=== PATIENT | male | born 1960 | race Caucasian/White ===

== ENCOUNTER 2024-01-16 09:33 | Outpatient (OUT) | payer MEDICARE, MEDICAID, SELFPAY ==
[2024-01-16 10:14] LABS: Basophils Percent Auto 0.2 % (0.2-2.0); Eosinophils Absolute Auto 0.1 10^3/uL (0.0-0.7); Eosinophils Percent Auto 1.7 % (0.9-7.0); Hematocrit 47.4 % (42.0-54.0); Hemoglobin 16.4 g/dL (14.0-18.0); Immature Granulocytes Abs Auto 0.02 10^3/uL (0.00-0.03); Immature Granulocytes Pct Auto 0.2 % (0.0-0.5); Lymphocytes Absolute Auto 2.1 10^3/uL (1.2-3.8); Lymphocytes Percent Auto 25.6 % (20.5-60.0); Mean Corpuscular HGB Conc 34.6 g/dL (29.9-35.2); Mean Corpuscular Hemoglobin 30.1 pg (25.9-34.0); Mean Corpuscular Volume 87.1 fL (80.0-94.0); Mean Platelet Volume 9.5 fL (9.5-13.5); Monocytes Absolute Auto 0.6 10^3/uL (0.3-0.8); Monocytes Percent Auto 6.6 % (1.7-12.0); Neutrophils Absolute Auto 5.5 10^3/uL (1.4-6.5); Neutrophils Percent Auto 65.7 % (43.0-75.0); Platelet Count 204 10^3/uL (150-450); Red Blood Count 5.44 10^6/uL (4.70-6.10); Red Cell Distribution Width 13.6 % (11.0-15.0); White Blood Count 8.4 10^3/uL (4.0-11.0)
[2024-01-16 11:04] LABS: Estimated Average Glucose 220 mg/dL; Glycohemoglobin A1C 9.3 % (4.5-6.2)
[2024-01-16 11:21] LABS: Alanine Aminotransferase 47 U/L (16-63); Albumin Globulin Ratio 1.2; Albumin Level 4.2 g/dL (3.4-5.0); Alkaline Phosphatase 147 U/L (46-116); Anion Gap 17.3; Aspartate Amino Transferase 20 U/L (15-37); BUN Creatinine Ratio 21.3; Bilirubin Total 0.6 mg/dL (0.2-1.0); Carbon Dioxide 23.1 mmol/L (21.0-32.0); Chloride 105 mmol/L (98-107); Chol HDL Ratio 4.5; Cholesterol 167 mg/dL (<=200); Estimated GFR (African America >60 (>=60); Estimated GFR (Non-African Ame >60 (>=60); Free T3 2.64 pg/mL (2.18-3.98); Globulin 3.4 g/dL; Glucose 239 mg/dL (74-106); HDL Cholesterol 37 mg/dL (40-60); Potassium 4.4 mmol/L (3.5-5.1); Sodium 141 mmol/L (136-145); Thyroid Stimulating Hormone 0.673 uIU/mL (0.358-3.740); Total Protein 7.6 g/dL (6.4-8.2); Triglycerides 147 mg/dL (<=150); VLDL CHOLESTEROL 29.4 mg/dL
[2024-01-16 11:48] LABS: Prostate Specific Antigen Dx 0.82 ng/mL (<=4.00)
== END 2024-01-16 09:34 | disposition home or self-care (01) ==
LOC: LAB 09:37
PROVIDERS: PCP Family Medicine; Visit Provider Family Medicine
DX: Z00.00 Encounter for general adult medical examination without abnormal findings (principal); I25.10 Atherosclerotic heart disease of native coronary artery without angina pectoris; I10 Essential (primary) hypertension; R13.10 Dysphagia, unspecified; R10.11 Right upper quadrant pain; Z87.448 Personal history of other diseases of urinary system; Z98.61 Coronary angioplasty status; E11.00 Type 2 diabetes mellitus with hyperosmolarity without nonketotic hyperglycemic-hyperosmolar coma (NKHHC); M75.40 Impingement syndrome of unspecified shoulder; E78.5 Hyperlipidemia, unspecified
CPT/HCPCS: 36415; 80053; 80061; 83036; 84153; 84436; 84443; 84481; 85025

== ENCOUNTER 2024-01-18 10:49 | Outpatient (OUT) | payer MEDICARE, MEDICAID, SELFPAY ==
--- NOTE | 2024-01-18 | VEIN_ITS ---
[facility] [address] Patient Name: MARINO GARCES MRN: [id number] date: 1960 Sex: M Assigned Patient Location: Current Patient Location: Accession/Order Number: [id number] Exam Date: 01/18/2024 00:00 Report Date: 01/23/2024 11:34 At the request of: MYRNA NAVARRO Procedure: VC Ankle Brachial Index EXAM: VC Ankle Brachial Index HISTORY: Peripheral Vascular Disease COMPARISON: None. FINDINGS: Segmental pressures presented as follows (right, left) in mmHg. Brachial: 154, 155 Upper thigh: Not obtained Lower thigh: Not obtained Calf: Not obtained DPA: 125, 100 [employer]: 134, 157 1st Toe: 170, 177 PIO: 0.86, 1.01 TBI: 1.10, 1.14 The ABIs are Normal The TBI's are Acceptable PVR waveforms: Right leg: Thigh: Not obtained Above knee: Not obtained Below knee: Delayed systolic upstroke with blunting, mild peripheral arterial disease Right ankle: Delayed systolic upstroke with blunting, mild peripheral arterial disease Left leg: Thigh: Not obtained Above knee: Not obtained Below knee: Delayed systolic upstroke with blunting, mild peripheral arterial disease Right ankle: Delayed systolic upstroke with blunting, mild peripheral arterial disease VEIN/VC Ankle Brachial Index IMPRESSION: Arterial brachial index suggests bilateral mild arterial disease PVR waveforms suggests bilateral below-knee mild peripheral arterial disease Electronically authenticated by: KASSIE MANNING Date: 01/23/2024 11:34
== END 2024-01-18 10:50 | disposition home or self-care (01) ==
LOC: VC 10:49
PROVIDERS: PCP Family Medicine; Visit Provider Family Medicine
DX: E11.65 Type 2 diabetes mellitus with hyperglycemia (principal)
CPT/HCPCS: 93922

== ENCOUNTER 2024-01-26 06:49 | Outpatient (OUT) | payer MEDICARE, MEDICAID, SELFPAY ==
--- NOTE | 2024-01-26 06:51 | US_ITS ---
[address] [address] Patient Name: MARINO GARCES MRN: [id number] date: 1960 Sex: M Assigned Patient Location: [place] Current Patient Location: US Accession/Order Number: [id number] Exam Date: 01/26/2024 07:04 Report Date: 01/26/2024 10:00 At the request of: MYRNA NAVARRO Procedure: US arterial duplex LE BI EXAMINATION: US arterial duplex LE BI HISTORY: arterial disease I77.9 COMPARISON: No relevant comparison available. TECHNIQUE: Color duplex Doppler ultrasound evaluation analysis was performed in the usual manner. FINDINGS: RIGHT LOWER EXTREMITY ARTERIAL Mild to moderate atherosclerotic plaque. Triphasic waveforms proximally. Biphasic waveforms distally External Iliac PSV: 90.9 cm/s External Iliac EDV: 0.0 cm/s Common Femoral PSV: 116.7 cm/s Common Femoral EDV: 0.0 cm/s Superficial Femoral Proximal PSV: 79.3 cm/s Proximal EDV: 0.0 cm/s Mid PSV: 76.7 cm/s Mid EDV: 0.0 cm/s Distal PSV: 201.3 cm/s Distal EDV: 0.0 cm/s Popliteal Proximal PSV: 95.1 cm/s Popliteal Proximal EDV: 0.0 cm/s Posterior Tibial Proximal PSV: 35.8 cm/s Proximal EDV: 0.0 cm/s Mid PSV: 31.9 cm/s Mid EDV: 0.7 cm/s Distal PSV: 28.1 cm/s Distal EDV: 0.0 cm/s Anterior Tibial Proximal PSV: 49.9 cm/s Proximal EDV: 0.0 cm/s Mid PSV: 56.9 cm/s Mid EDV: 0.0 cm/s Distal PSV: 36.3 cm/s Distal EDV: 0.0 cm/s LEFT LOWER EXTREMITY ARTERIAL Mild to moderate atherosclerotic plaque. Triphasic waveforms proximally. Biphasic waveforms distally External Iliac PSV: 94.1 cm/s External Iliac EDV: 0.0 cm/s Common Femoral PSV: 89.6 cm/s Common Femoral EDV: 0.0 cm/s Superficial Femoral Proximal PSV: 97.3 cm/s Proximal EDV: 7.7 cm/s Mid PSV: 107.0 cm/s Mid EDV: 0.0 cm/s Distal PSV: 84.4 cm/s Distal EDV: 7.7 cm/s Popliteal Proximal PSV: 59 cm/s Popliteal Proximal EDV: 0 cm/s Posterior Tibial Proximal PSV: 37.2 cm/s Proximal EDV: 0.0 cm/s Mid PSV: 36.1 cm/s Mid EDV: 0.0 cm/s Distal PSV: 32.5 cm/s Distal EDV: Anterior Tibial Proximal PSV: 136.9 cm/s Proximal EDV: 9.5 cm/s Mid PSV: 66.9 cm/s Mid EDV: 2.3 cm/s Distal PSV: 40.5 cm/s Distal EDV: 0.0 cm/s US/US arterial duplex LE BI IMPRESSION: Findings suggest mild ischemia mid to distal bilateral legs Electronically authenticated by: KASSIE MANNING Date: 01/26/2024 10:00
--- OUTSIDE RECORDS SUMMARY | 2024-01-26 06:51 | XMS_ITS ---
Patient Summarization (C-CDA 2.1 CCD) Created on: January 26, 2024 MARINO GARCES : 1960 Sex: Male Author Organization Sample organization Care Team Providers Care Cdl Bulk Driver Name Role Phone RAMON, DR NORRIS Consulting Unavailable RAMON, DR NORRIS Primary Care Unavailable RAMON, DR NORRIS Admitting Unavailable RAMON, DR NORRIS Attending Unavailable WEST, DR KASSIE Salas Consulting Unavailable RAMON, DR NORRIS Admitting Unavailable RAMON, DR NORRIS Attending Unavailable RAMON, DR NORRIS Consulting Unavailable RAMON, DR NORRIS Consulting Unavailable RAMON, DR NORRIS Primary Care Unavailable JOCELYNY, DR NORRIS Admitting Unavailable RAMON, DR NORRIS Attending Unavailable FROILAN, DR LESLIE Miramontes Consulting Unavailable Allergies Allergy Classification Reported Allergen(s) Allergy Type Date of Onset Reaction(s) Facility (1 source) Penicillin Drug Allergy [facility] Repository Encounters Encounter Date Encounter Type Care Provider Facility Start: 01-18-2022 End: 01-18-[address] MYRNA NAVARRO Facility:[facility] Start: 12-31-2021 End: 01-01-[address] MYRNA NAVARRO Facility:[facility] Start: 10-08-2021 End: 10-09-[address] MYRNA NAVARRO Facility:[facility] Payers Date Payer Category Payer Unknown [id number] [id number] [id number] 1960 Unknown [id number] 1960 Unknown [id number] 1957 Medicaid [id number] 1957 Medicare [id number] Problems Active Problems Problem Classification Problem Date Documented Date Episodic/Chronic Coronary atherosclerosis and other heart disease (1 source) Atherosclerotic heart disease of platinum coronary artery without angina pectoris; Translations: [ASHD [place] CA W/O ANGINA PECTORIS] Onset: 10-11-2021 Chronic Diabetes mellitus with complications (1 source) Type 2 diabetes mellitus with hyperosmolarity without nonketotic hyperglycemic-hyperos molar coma (NKHHC); Translations: [TYPE 2 DM HYPEROSMOLARITY W/O NKHHC] Onset: 10-11-2021 Chronic Disorders of lipid metabolism (5 sources) Hyperlipidemia, unspecified; Translations: [Pure hypercholesterolemia, unspecified] Onset: 10-08-2021 Chronic Essential hypertension (1 source) Essential (primary) hypertension; Translations: [ESSENTIAL PRIMARY HYPERTENSION] Onset: 10-11-2021 Chronic Other connective tissue disease (4 sources) Impingement syndrome of right shoulder; Translations: [IMPINGEMENT SYNDROME RIGHT SHOULDER] Onset: 01-18-2022 Episodic Sprains and strains (1 source) Superior glenoid labrum lesion of right shoulder, initial encounter; Translations: [SUP GLND LABRUM LES RT SHLDR INIT] Onset: 01-20-2022 Episodic Past or Other Problems Problem Classification Problem Date Documented Da te Episodic/Chronic Coronary atherosclerosis and other heart disease (1 source) Coronary angioplasty status; Translations: [CORONARY ANGIOPLASTY STATUS] Onset: 10-11-2021 Episodic Diabetes mellitus without complication (1 source) Other abnormal glucose; Translations: [OTHER ABNORMAL GLUCOSE] Onset: 10-11-2021 Episodic Other screening for suspected conditions (not mental disorders or infectious disease) (1 source) Encounter for screening for malignant neoplasm of prostate; Translations: [ENC SCREEN MALIG NEOPLASM PROSTATE] Onset: 10-11-2021 Episodic Procedures Date Procedure Procedure Detail Performing Clinician Start: 10-08-[address] WILLIAM NAVARRO Comment on above: Performed By: #### P [facility] #### [facility] [address] [place] [address] Dr. Jamia Chin Results Test Name Value Interpretation Reference Range Facility MRI SHOULDER RT WO CONon MRI SHOULDER RT WO CON EXAMINATION: MRI SHOULDER RT WO CON HISTORY: Impingement syndrome of right shoulder region COMPARISON: No relevant comparison available. TECHNIQUE: A variety of imaging planes and parameters were utilized for visualization of suspected pathology. Imaging was performed without contrast. FINDINGS: Gadolinium contrast identified within the joint space from prior arthrogram, see separate report. Extension of contrast out of the joint space into the anterior shoulder extending into the subacromial subdeltoid bursa ROTATOR CUFF REGION CUFF TENDONS: Normal. No visible tendinitis or tear. CUFF MUSCLES: Normal appearing muscles. DELTOID: Normal. No significant atrophy or tear. LONG BICEPS TENDON: Normal. No abnormal signal, attrition, or tear. LABRUM/BICEPS ANCHOR SUPERIOR: Increased signal and fraying of the superior labrum, with detachment of the labrum and biceps tendon from the glenoid rim. Findings are most consistent with a Type II SLAP lesion. ANTERIOR/INFERIOR: Complex signal likely representing a tear POSTERIOR: Normal. No posterior labrum abnormality. CAPSULE Normal. No visible capsular laxity or thickening. AC JOINT REGION AC JOINT: Moderate osteoarthropathy with mild-moderate narrowing of the underlying coracoacromial arch. AC LIGAMENTS: Normal acromioclavicular ligament. CC LIGAMENTS: Normal coracoclavicular ligaments. ACROMION: Normal horizontal (Type I) configuration. SUBACROMIAL BURSA: Normal. No significant effusion. HYALINE CARTILAGE: Normal. No visible cartilage narrowing or focal defect. OTHER BONES: Normal proximal humerus, glenoid, and coracoid. OTHER OBSERVATIONS: Negative. No other significant findings or glenohumeral effusion. IMPRESSION: Complex large superior and anterior labral tear with extravasation of contrast outside of the glenohumeral joint space into the anterior shoulder and subacromial subdeltoid bursa Electronically authenticated by: KASSIE MANNING Date: 2022-01-18 18:25 Normal [facility] XR ARTHRO SHLD RTon 01-19-20 22 XR ARTHRO SHLD RT EXAMINATION: XR ARTH RO SHLD RT HISTORY: Impingement syndrome of right shoulder region COMPARISON: No relevant comparison available. TECHNIQUE: An arthrogram was performed under fluoroscopic guidance using non-ionic contrast material in the usual sterile manner after obtaining informed consent. Standard level fluoroscopic mode of operation utilized. FINDINGS: JOINT: Right shoulder NEEDLE: 25 gauge, 3.5 spinal needle. MEDICATION: 10 mL injected into joint space consisting of a mixture of 10 cc normal saline, 5 cc Omnipaque-300, 5 cc 1% Xylocaine, and 0.2 cc Dotarem. TECHNIQUE: Anterior approach under fluoroscopic guidance. CLINICAL: 4 out of 10 pain before the injection, 4 out of 10 pain following the injection COMPLICATIONS: None. BONES: No fracture, significant osseous degenerative changes, or visible bone lesion. BURSA: No visible extension of contrast into the subacromial-subdeltoid bursa at this time. OTHER: Negative. IMPRESSION: 1. Technically successful arthrogram without complication. 2. Please see separate MRI report. Electronically authenticated by: KASSIE MANNING Date: 2022-01-18 15:04 Normal [facility] XR FOREIGN BODY EYEon 2021 XR FOREIGN BODY EYE EXAMINATION: XR FOREIGN BODY EYE HISTORY: Foreign body in eye COMPARISON: No relevant comparison available. FINDINGS: ORBITS: Negative for a metallic foreign body. OTHER: Metallic foreign body identified in the right mandible. Metallic foreign bodies project over the posterior upper teeth. IMPRESSION: No metallic foreign body in the orbits Multiple metallic implants as detailed above. Composition should be determined before MRI Electronically authenticated by: KASSIE MANNING Date: 2022-01-18 13:55 Normal [facility] XR CSPINE MIN 4 VIEWSon 12-13 XR CSPINE MIN 4 VIEWS EXAMINATION: XR CSPINE MIN 4 VIEWS HISTORY: Impingement syndrome of shoulder region ; right neck and shoulder pain for 2-3 months; no known injury COMPARISON: No relevant comparison available. FINDINGS: BONES: Mild/moderate degenerative facet arthropathy C4-C5, C5-C6. No fracture or spondylolisthesis. DISC SPACES: Moderate narrowing C4-C5. Mild narrowing C5-C6. PARASPINOUS: Negative. No paraspinous abnormality is seen. OTHER: Negative. IMPRESSION: 1. Mild to moderate degenerative changes of the mid cervical spine. Consider MRI for further evaluation if symptoms persist. Electronically authenticated by: LESLIE MCGOVERN Date: 2021-12-31 16:24 Normal [facility] CBC AUTO DIFFon 10-08-2021 BASO # 0.0 103/ul Normal 0.0-0.1 [facility] Comment on above: Performed By: #### C BC #### [facility] [address] [address] [address] Jamia Chin Basophils/100 WBC (Bld) 0.4 % Normal 0.2-2.0 [facility] Comment on above: Performed By: #### C BC #### [facility] [address] [address] [address] Jamia Chin EO # 0.2 103/ul Normal 0.0-0.7 [facility] Comment on above: Performed By: #### C BC #### [facility] [address] [place] [address] Dr. Jamia Chin Eosinophils/100 WBC (Bld) 2.1 % Normal 0.9-7.0 [facility] Comment on above: Performed By: #### C BC #### [facility] [address] [place] [address] Dr. Jamia Chin Erythrocyte distribution width (RBC) [Ratio] 13.2 % Normal 11.0-15.0 [facility] Comment on above: Performed By: #### C BC #### [facility] [address] [place] [address] Dr. Jamia Chin Hematocrit (Bld) [Volume fraction] 48.3 % Normal 42.0-54.0 [facility] Comment on above: Performed By: #### C BC #### [facility] [address] [place] [address] Dr. Jamia Chin Hemoglobin (Bld) [Mass/Vol] 16.9 g/dL Normal 14.0-18.0 [facility] Comment on above: Performed By: #### C BC #### [facility] [address] [place] [address] Dr. Jamia Chin IG # 0.03 10e3/ul Normal 0.00-0.03 [facility] Comment on above: Performed By: #### C BC #### [facility] [address] [place] [address] Dr. Jamia Chin IG % 0.3 % Normal 0.0-0.5 [facility] Comment on above: Performed By: #### C BC #### [facility] [address] [place] [address] Dr. Jamia Chin LYMPH # 2.0 103/ul Normal 1.2-3.8 [facility] Comment on above: Performed By: #### C BC #### [facility] [address] [place] [address] Dr. Jamia Chin Lymphocytes/100 WBC (Bld) 22.5 % Normal 20.5-60.0 [facility] Comment on above: Performed By: #### C BC #### [facility] [address] [place] [address] Dr. Jamia Chin MANUAL DIFF REQ NO Normal [facility] Comment on above: Performed By: #### C BC #### [facility] [address] [place] [address] Dr. Jamia Chin MCH (RBC) [Entitic mass] 30.7 pg Normal 25.9-34.0 [facility] Comment on above: Performed By: #### C BC #### [facility] [address] [place] [address] Dr. Jamia Chin MCHC (RBC) [Mass/Vol] 35.0 g/dL Normal 29.9-35.2 [facility] Comment on above: Performed By: #### C BC #### [facility] [address] [place] [address] Dr. Jamia Chin MCV (RBC) [Entitic vol] 87.7 fL Normal 80.0-94.0 [facility] Comment on above: Performed By: #### C BC #### [facility] [address] [place] [address] Dr. Jamia Chin MONO # 0.6 103/ul Normal 0.3-0.8 [facility] Comment on above: Performed By: #### C BC #### [facility] [address] [place] [address] Dr. Jamia Chin Monocytes/100 WBC (Bld) 6.7 % Normal 1.7-12.0 [facility] Comment on above: Performed By: #### C BC #### [facility] [address] [place] [address] Dr. Jamia Chin NEUT # 6.2 103/ul Normal 1.4-6.5 [facility] Comment on above: Performed By: #### C BC #### [facility] [address] [place] [address] Dr. Jamia Chin Neutrophils/100 WBC (Bld) 68.0 % Normal 43.0-75.0 [facility] Comment on above: Performed By: #### C BC #### [facility] [address] [address] [address] Jamia Chin Platelet mean volume (Bld) [Entitic vol] 9.0 fL Critically low 9.5-13.5 [facility] Comment on above: Performed By: #### C BC #### [facility] [address] [address] [address] Jamia Chin PLT 209 103/ul Normal 150-450 [facility] Comment on above: Performed By: #### C BC #### [facility] [address] [address] [address] Jamia Chin RBC 5.51 106/ul Normal 4.70-6.10 [facility] Comment on above: Performed By: #### C BC #### [facility] [address] [address] [address] Jamia Chin WBC 9.1 103/ul Normal 4.0-11.0 [facility] Comment on above: Performed By: #### C BC #### [facility] [address] [address] [address] Jamia Chin GLYCOHEMOGLOBIN A1Con 2021 ADA RECOMMENDATION ADA THERAPEUTIC TARG ET 6.0 - 7.0 ACTION SUGGESTED > 7.0 Normal [facility] Comment on above: Performed By: #### A 1C #### [facility] [address] [place] [address] Dr. Jamia Chin Glucose [Mass/Vol] 226 mg/dL Normal [facility] Comment on above: Performed By: #### A 1C #### [facility] [address] [address] [address] Jamia Chin HbA1c (Bld) [Mass fraction] 9.5 % Critically high <=6.0 [facility] Comment on above: Performed By: #### A 1C #### [facility] [address] [place] [address] Dr. Jamia Chin LIPID PROFILEon 10-08-2021 CHOL-HDL RATIO NORM SEE BELOW Normal [facility] Comment on above: Result Comment: 3.3 - 4.4 LOW RISK 4.4 - 7.1 AVERAGE RISK 7.1 - 11.0 MODERATE RISK >11.0 HIGH RISK Performed By: #### L IPID, CMP #### [facility] [address] [place] [address] Dr. Jamia Chin Cholesterol [Mass/Vol] 167 mg/dL Normal <=200 [facility] Comment on above: Performed By: #### L IPID, CMP #### [facility] [address] [address] [address] Jamia Chin Cholesterol in HDL [Mass/Vol] 31 mg/dL Normal [facility] Comment on above: Performed By: #### L IPID, CMP #### [facility] [address] [place] [address] Dr. Jamia Chin Cholesterol in LDL [Mass/Vol] 93.6 mg/dL Normal [facility] Comment on above: Performed By: #### L IPID, CMP #### [facility] [address] [place] [address] Dr. Jamia Chin Cholesterol.total/Ch olesterol in HDL [Mass ratio] 5.4 {ratio} Normal [facility] Comment on above: Performed By: #### L IPID, CMP #### [facility] [address] [place] [address] Dr. Jamia Chin HDL NORMAL > or = 60 mg/dl - LO W CARDIOVASCULAR RISK <40 mg/dl - HIGH CARDIOVASCULAR RISK Normal [facility] Comment on above: Performed By: #### L IPID, CMP #### [facility] [address] [place] [address] Dr. Jamia Chin LDL CALC NORMAL SEE BELOW Normal [facility] Comment on above: Result Comment: <100 mg/dl OPTIMAL 100 - 129 mg/dl NEAR OR ABOVE OPTIMAL 130 - 159 mg/dl BORDERLINE HIGH 160 - 189 mg/dl HIGH >190 mg/dl VERY HIGH Performed By: #### L IPID, CMP #### [facility] [address] [place] [address] Dr. Jamia Chin Triglyceride [Mass/Vol] 212 mg/dL Critically high <=150 [facility] Comment on above: Performed By: #### L IPID, CMP #### [facility] [address] [address] [address] Jamia Chin VLDL CALC 42.4 mg/dL Normal [facility] Comment on above: Performed By: #### L IPID, CMP #### [facility] [address] [address] [address] Jamia Chin PROF 14(COMP METB)on 022 Albumin [Mass/Vol] 4.3 g/dL Normal 3.5-5.0 [facility] Comment on above: Performed By: #### L IPID, CMP #### [facility] [address] [place] [address] Dr. Jamia Chin Albumin/Globulin [Mass ratio] 1.3 {ratio} Normal [facility] Comment on above: Performed By: #### L IPID, CMP #### [facility] [address] [place] [address] Dr. Jamia Chin ALP [Catalytic activity/Vol] 155 U/L Critically high 38-126 [facility] Comment on above: Performed By: #### L IPID, CMP #### [facility] [address] [place] [address] Dr. Jamia Chin ALT [Catalytic activity/Vol] 76 U/L Critically high 21-72 [facility] Comment on above: Performed By: #### L IPID, CMP #### [facility] [address] [address] [address] Jamia Chin Anion gap [Moles/Vol] 12.2 mmol/L Normal [facility] Comment on above: Performed By: #### L IPID, CMP #### [facility] [address] [place] [address] Dr. Jamia Chin AST [Catalytic activity/Vol] 16 U/L Critically low 17-59 [facility] Comment on above: Performed By: #### L IPID, CMP #### [facility] [address] [place] [address] Dr. Jamia Chin Bilirubin [Mass/Vol] 0.6 mg/dL Normal 0.2-1.3 [facility] Comment on above: Performed By: #### L IPID, CMP #### [facility] [address] [address] [address] Jamia Chin Calcium [Mass/Vol] 9.2 mg/dL Normal 8.4-10.2 [facility] Comment on above: Performed By: #### L IPID, CMP #### [facility] [address] [address] [address] Jamia Chin Chloride [Moles/Vol] 103 mmol/L Normal 98-107 [facility] Comment on above: Performed By: #### L IPID, CMP #### [facility] [address] [place] [address] Dr. Jamia Chin CO2 [Moles/Vol] 27.1 mmol/L Normal 22.0-30.0 [facility] Comment on above: Performed By: #### L IPID, CMP #### [facility] [address] [place] [address] Dr. Jamia Chin Creatinine [Mass/Vol] 0.91 mg/dL Normal 0.66-1.25 [facility] Comment on above: Performed By: #### L IPID, CMP #### [facility] [address] [place] [address] Dr. Jamia Chin EGFR-AF CAMEROONIAN >60 Normal >=60 [facility] Comment on above: Performed By: #### L IPID, CMP #### [facility] [address] [place] [address] Dr. Jamia Chin EGFR-NON AF CAMEROONIAN >60 Normal >=60 [facility] Comment on above: Performed By: #### L IPID, CMP #### [facility] [address] [place] [address] Dr. Jamia Chin Globulin (S) [Mass/Vol] 3.3 g/dL Normal [facility] Comment on above: Performed By: #### L IPID, CMP #### [facility] [address] [place] [address] Dr. Jamia Chin Glucose [Mass/Vol] 343 mg/dL Critically high 74-106 [facility] Comment on above: Performed By: #### L IPID, CMP #### [facility] [address] [address] [address] Jamia Chin Potassium [Moles/Vol] 4.3 mmol/L Normal 3.4-5.0 [facility] Comment on above: Performed By: #### L IPID, CMP #### [facility] [address] [place] [address] Dr. Jamia Chin Protein [Mass/Vol] 7.6 g/dL Normal 6.1-8.2 [facility] Comment on above: Performed By: #### L IPID, CMP #### [facility] [address] [place] [address] Dr. Jamia Chin Sodium [Moles/Vol] 138 mmol/L Normal 137-145 [facility] Comment on above: Performed By: #### L IPID, CMP #### [facility] [address] [place] [address] Dr. Jamia Chin Urea nitrogen [Mass/Vol] 19.0 mg/dL Normal 9.0-20.0 [facility] Comment on above: Performed By: #### L IPID, CMP #### [facility] [address] [place] [address] Dr. Jamia Chin Urea nitrogen/Creatinine [Mass ratio] 20.9 mg/mg Normal [facility] Comment on above: Performed By: #### L IPID, CMP #### [facility] [address] [place] [address] Dr. Jamia Chin Clinical Note 12-31-2021 Note Date & Type Note Facility 12-31-2021 Note PROCEDURE: XR SHOULD ER RT 2V or > HISTORY: Impingement syndrome of shoulder region , right shoulder pain and neck pain for 2 and 3 months, no known injury COMPARISON: None. FINDINGS: BONES:Narrowing of the acromioclavicular joint with bone hypertrophy of the distal end of clavicle with small undersurface osteophyte and prominent cephalad projecting osteophyte. Unremarkable humeral head and glenohumeral joint. SOFT TISSUES:No visible soft tissue swelling. EFFUSION:None visible. OTHER: Negative. IMPRESSION: 1. No acute bone abnormality. 2. Moderate degenerative changes acromioclavicular joint which may predispose to rotator cuff injury. Electronically authenticated by: LESLIE MCGOVERN Date: 2021-12-31 16:19 [facility] Summary Purpose Family History No Family History Records Found Advance Directives No Advanced Directives Records Found Additional Source Comments (unrecognized sect ion and content) No Status Records Found INFORMATION SOURCE (unrecogn ized section and content) DATE CREATED AUTHOR 01/20/2022 [facility] FOR RECORDS PERTAINING TO PATIENTS WHO ARE OR HAVE BEEN ENROLLED IN A CHEMICAL DEPENDENCY/SUBSTANCEABUSE PROGRAM, SOME INFORMATION MAY BE OMITTED. This clinical summary was aggregated from multiple sources. Caution should be exercised in using it in the provision of clinical care. This summary normalizes information from multiple sources, and as a consequence, information in this document may materially change the coding, format and clinical context of patient data. In addition, data may be omitted in some cases. CLINICAL DECISIONS SHOULD BE BASED ON THE PRIMARY CLINICAL RECORDS. [facility] [employer] provides no warranty or guarantee of the accuracy or completeness of information in this document.
== END 2024-01-26 06:50 | disposition home or self-care (01) ==
LOC: US 06:49
PROVIDERS: PCP Family Medicine; Visit Provider Family Medicine
DX: I77.9 Disorder of arteries and arterioles, unspecified (principal); E11.65 Type 2 diabetes mellitus with hyperglycemia
CPT/HCPCS: 93925

== ENCOUNTER 2024-11-24 15:48 | Emergency (ER) | payer MEDICARE, MEDICAID, SELFPAY ==
[2024-11-24 15:52] VITALS: BP 153/80; PULSE 73; TEMP 36.7; O2SAT 97; BMI 23.9
--- OUTSIDE RECORDS SUMMARY | 2024-11-24 15:57 | XMS_ITS | CCD ---
Author Organization [facility] Care Team Providers Care Box Maker Name Role Phone DR MYRNA MULTANI Consulting Unavailable RAMON, DR NORRIS Primary Care Unavailable RAMON, DR NORRIS Admitting Unavailable RAMON, DR NORRIS Attending Unavailable WEST, DR KASSIE Salas Consulting Unavailable RAMON, DR NORRIS Admitting Unavailable RAOMN, DR NORRIS Attending Unavailable RAMON, DR NORRIS Consulting Unavailable RAMON, DR NORRIS Consulting Unavailable RAMON, DR NORRIS Primary Care Unavailable RAMON, DR NORRIS Admitting Unavailable RAMON, DR NORRIS Attending Unavailable FROILAN, DR LESLIE Miramontes Consulting Unavailable LYNN FINNEGAN Attending Unavailable MYRNA MULTANI Referring Unavailable Unavailable Primary Care Provider Unavailabl e Allergies Allergy Classification Reported Allergen(s) Allergy Type Date of Onset Reaction(s) Facility Penicillins (antibiotic) (1 source) Penicillins; Translations: [PENICILLINS] Drug Allergy 02-01-20 24 [facility] Repository Sulfamethoxazole / Trimethoprim (1 source) Sulfamethoxazole / Trimethoprim; Translations: [SULFAMETHOXAZOLE-T RIMETHOPRIM] Drug Allergy 10-10-19 11 [facility] Repository (1 source) Penicillin Drug Allergy [facility] Repository (3 sources) Penicillins Propensity to adverse reactions to drug 02-01-20 24 [facility] (3 sources) Sulfamethoxazole / Trimethoprim Drug Allergy 10-10-19 11 Other (See Comments) [facility] Medications Current Medications Medication Drug Class(es) Dates Sig (Normalized) Sig (Original) aspirin 325 mg oral tablet (3 sources) Platelet Aggregation Inhibitor, Nonsteroidal Anti-inflammatory Drug take 1 tablet by mouth every six hours as needed aspirin 325 mg tablet Take 1 tablet (325 mg total) by mouth every 6 (six) hours as needed. Active ibuprofen 200 mg oral tablet (3 sources) Nonsteroidal Anti-inflammatory Drug take 1 tablet by mouth every six hours as needed ibuprofen (AdviL) 200 mg tablet Take 1 tablet (200 mg total) by mouth every 6 (six) hours as needed. Active metoprolol tartrate 25 mg oral tablet (3 sources) beta-Adrenergic Reyes take 1 tablet by mouth in the morning, then take 1 tablet by mouth at bedtime metoprolol tartrate (LOPRESSOR) 25 mg tablet Take 1 tablet (25 mg total) by mouth in the morning and 1 tablet (25 mg total) before bedtime. Active pioglitazone 15 mg oral tablet (3 sources) Peroxisome Proliferator Receptor alpha Agonist, Peroxisome Proliferator Receptor gamma Agonist, Thiazolidinedione Start: 01-15-2024 take 1 tablet by mouth in the morning pioglitazone (ACTOS) 15 mg tablet Take 1 tablet (15 mg total) by mouth in the morning. 01/15/2024 Active rosuvastatin calcium 5 mg oral tablet (3 sources) HMG-CoA Reductase Inhibitor Start: 01-12-2024 take 1 tablet by mouth in the morning rosuvastatin (CRESTOR) 5 mg tablet Take 1 tablet (5 mg total) by mouth in the morning. 01/12/2024 Active varenicline 0.5 mg oral tablet (3 sources) Partial Cholinergic Nicotinic Agonist take 1 tablet by mouth once in the morning varenicline (CHANTIX STARTING MONTH BOX) 0.5 mg (11)- 1 mg (42) tablet Take 0.5 mg by mouth in the morning and 0.5 mg before bedtime. Active Problems Active Problems Problem Classification Problem Date Documented Date Episodic/Chronic Anxiety disorders (3 sources) Anxiety; Translations: [Anxiety disorder, unspecified] Onset: 10-10-2010 02-01-2024 Chronic Coronary atherosclerosis and other heart disease (10 sources) Atherosclerotic heart disease of [place] coronary artery without angina pectoris; Translations: [Coronary arteriosclerosis] Onset: 10-11-2021 02-01-2024 Chronic Diabetes mellitus with complications (1 source) Type 2 diabetes mellitus with hyperosmolarity without nonketotic hyperglycemic-hyperos molar coma (NKHHC); Translations: [TYPE 2 DM HYPEROSMOLARITY W/O NKHHC] Onset: 10-11-2021 Chronic Disorders of lipid metabolism (5 sources) Hyperlipidemia, unspecified; Translations: [Pure hypercholesterolemia, unspecified] Onset: 10-08-2021 Chronic Essential hypertension (1 source) Essential (primary) hypertension; Translations: [ESSENTIAL PRIMARY HYPERTENSION] Onset: 10-11-2021 Chronic Other circulatory disease (1 source) Other disorder of circulatory system; Translations: [Other disorder of circulatory system] Onset: 02-01-2024 Episodic Other connective tissue disease (4 sources) Impingement syndrome of right shoulder; Translations: [IMPINGEMENT SYNDROME RIGHT SHOULDER] Onset: 01-18-2022 Episodic Other connective tissue disease (1 source) Pain in lower limb Onset: 02-01-2024 Episodic Peripheral and visceral atherosclerosis (5 sources) Peripheral vascular disease, unspecified; Translations: [Intermittent claudication] Onset: 02-01-2024 02-01-2024 Chronic Residual codes; unclassified (1 source) Pain, unspecified; Translations: [Pain, unspecified] Onset: 01-31-2024 Episodic Sprains and strains (1 source) Superior glenoid labrum lesion of right shoulder, initial encounter; Translations: [SUP GLND LABRUM LES RT SHLDR INIT] Onset: 01-20-2022 Episodic Substance-related disorders (8 sources) Nicotine dependence, cigarettes, uncomplicated; Translations: [Tobacco dependence syndrome] Onset: 02-01-2024 02-01-2024 Chronic Unclassified (1 source) Cold Feet Onset: 02-01-2024 Past or Other Problems Problem Classification Problem Date Documented Da te Episodic/Chronic Allergic reactions (6 sources) Inflammatory dermatosis; Translations: [Dermatitis, unspecified] Onset: 11-01-2010 02-01-2024 Episodic Coronary atherosclerosis and other heart disease (1 source) Coronary angioplasty status; Translations: [CORONARY ANGIOPLASTY STATUS] Onset: 10-11-2021 Episodic Diabetes mellitus without complication (1 source) Other abnormal glucose; Translations: [OTHER ABNORMAL GLUCOSE] Onset: 10-11-2021 Episodic Nonspecific chest pain (3 sources) Chest pain; Translations: [Chest pain, unspecified] Onset: 02-01-2024 02-01-2024 Episodic Other circulatory disease (2 sources) Ischemia of bilateral lower limbs; Translations: [Other disorder of circulatory system] 02-01-2024 Episodic Other screening for suspected conditions (not mental disorders or infectious disease) (1 source) Encounter for screening for malignant neoplasm of prostate; Translations: [ENC SCREEN MALIG NEOPLASM PROSTATE] Onset: 10-11-2021 Episodic Results Test Name Value Interpretation Reference Range [...] by: KASSIE MANNING Date: 2022-01-18 18:25 Normal [facility] XR ARTHRO SHLD RTon 01-19-20 22 XR ARTHRO LD RT EXAMINATION: XR ARTH RO SHLD RT [...] by: KASSIE MANNING Date: 2022-01-18 15:04 Normal [facility] XR FOREIGN BODY EYEon 2021 XR FOREIGN [...] by: KASSIE MANNING Date: 2022-01-18 13:55 Normal [facility] XR CSPINE MIN 4 VIEWSon 12-13 XR [...] by: LESLIE MCGOVERN Date: 2021-12-31 16:24 Normal [facility] CBC AUTO DIFFon 10-08-2021 BASO # 0.0 103/ul Normal 0.0-0.1 [facility] Comment on above: Performed By: #### C #### [facility] [address] [place] [address] Dr. Jamia Chin Basophils/100 WBC (Bld) 0.4 % Normal 0.2-2.0 [facility] Comment on above: Performed By: #### C BC #### [facility] [address] [place] [address] Dr. Jamia Chin EO # 0.2 103/ul Normal 0.0-0.7 [facility] Comment on above: Performed By: #### C BC #### [facility] [address] [place] [address] Dr. Jamia Chin Eosinophils/100 WBC (Bld) 2.1 % Normal 0.9-7.0 [facility] Comment on above: Performed By: #### C BC #### [facility] [address] [place] [address] Dr. Jamia Chin Erythrocyte distribution width (RBC) [Ratio] 13.2 % Normal 11.0-15.0 [facility] Comment on above: Performed By: #### C BC #### [facility] [address] [place] [address] Dr. Jamia Chin Hematocrit (Bld) [Volume fraction] 48.3 % Normal 42.0-54.0 [facility] Comment on above: Performed By: #### C BC #### [facility] [address] [place] [address] Dr. Jamia Chin Hemoglobin (Bld) [Mass/Vol] 16.9 g/dL Normal 14.0-18.0 [facility] Comment on above: Performed By: #### C BC #### [facility] [address] [place] [address] Dr. Jamia Chin IG # 0.03 10e3/ul Normal 0.00-0.03 [facility] Comment on above: Performed By: #### C BC #### [facility] [address] [place] [address] Dr. Jamia Chin IG % 0.3 % Normal 0.0-0.5 [facility] Comment on above: Performed By: #### C BC #### [facility] [address] [address] [address] Jamia Chin LYMPH # 2.0 103/ul Normal 1.2-3.8 [facility] Comment on above: Performed By: #### C BC #### [facility] [address] [place] [address] Dr. Jamia Chin Lymphocytes/100 WBC (Bld) 22.5 % Normal 20.5-60.0 [facility] Comment on above: Performed By: #### C BC #### [facility] [address] [place] [address] Dr. Jamia Chin MANUAL DIFF REQ NO Normal [facility] Comment on above: Performed By: #### C BC #### [facility] [address] [place] [address] Dr. Jamia Chin MCH (RBC) [Entitic mass] 30.7 pg Normal 25.9-34.0 [facility] Comment on above: Performed By: #### C BC #### [facility] [address] [place] [address] Dr. Jamia Chin MCHC (RBC) [Mass/Vol] 35.0 g/dL Normal 29.9-35.2 [facility] Comment on above: Performed By: #### C BC #### [facility] [address] [place] [address] Dr. Jamia Chin MCV (RBC) [Entitic vol] 87.7 fL Normal 80.0-94.0 [facility] Comment on above: Performed By: #### C BC #### [facility] [address] [place] [address] Dr. Jamia Chin MONO # 0.6 103/ul Normal 0.3-0.8 [facility] Comment on above: Performed By: #### C BC #### [facility] [address] [place] [address] Dr. Jamia Chin Monocytes/100 WBC (Bld) 6.7 % Normal 1.7-12.0 [facility] Comment on above: Performed By: #### C BC #### [facility] [address] [place], [place] [id number] Dr. Jamia Chin NEUT # 6.2 103/ul Normal 1.4-6.5 [facility] Comment on above: Performed By: #### C BC #### [facility] [address] [place] [address] Dr. Jamia Chin Neutrophils/100 WBC (Bld) 68.0 % Normal 43.0-75.0 [facility] Comment on above: Performed By: #### C BC #### [facility] [address] [place] [address] Dr. Jamia Chin Platelet mean volume (Bld) [Entitic vol] 9.0 fL Critically low 9.5-13.5 [facility] Comment on above: Performed By: #### C BC #### [facility] [address] [place] [address] Dr. Jamia Chin PLT 209 103/ul Normal 150-450 [facility] Comment on above: Performed By: #### C BC #### [facility] [address] [place] [address] Dr. Jamia Chin RBC 5.51 106/ul Normal 4.70-6.10 [facility] Comment on above: Performed By: #### C BC #### [facility] [address] [place] [address] Dr. Jamia Chin WBC 9.1 103/ul Normal 4.0-11.0 [facility] Comment on above: Performed By: #### C BC #### [facility] [address] [place] [address] Dr. Jamia Chin GLYCOHEMOGLOBIN A1Con 2021 ADA RECOMMENDATION ADA THERAPEUTIC TARG ET 6.0 - 7.0 ACTION SUGGESTED > 7.0 Normal [facility] Comment on above: Performed By: #### A 1C #### [facility] [address] [place] [address] Dr. Jamia Chin Glucose [Mass/Vol] 226 mg/dL Normal [facility] Comment on above: Performed By: #### A 1C #### [facility] [address] [place] [address] Dr. Jamia Chin HbA1c (Bld) [Mass fraction] 9.5 % Critically high <=6.0 [facility] Comment on above: Performed By: #### A 1C #### [facility] [address] [address] [address] Jamia Chin LIPID PROFILEon 10-08-2021 CHOL-HDL RATIO NORM SEE BELOW Normal [facility] Comment on above: Result Comment: 3.3 - 4.4 LOW RISK 4.4 - 7.1 AVERAGE RISK 7.1 - 11.0 MODERATE RISK >11.0 HIGH RISK Performed By: #### L IPID, CMP #### [facility] [address] [address] [address] Jamia Chin Cholesterol [Mass/Vol] 167 mg/dL Normal <=200 [facility] Comment on above: Performed By: #### L IPID, CMP #### [facility] [address] [address] [address] Jamia Chin Cholesterol in HDL [Mass/Vol] 31 mg/dL Normal [facility] Comment on above: Performed By: #### L IPID, CMP #### [facility] [address] [address] [address] Jamia Chin Cholesterol in LDL [Mass/Vol] 93.6 mg/dL Normal [facility] Comment on above: Performed By: #### L IPID, CMP #### [facility] [address] [address] [address] Jamia Chin Cholesterol.total/Ch olesterol in HDL [Mass ratio] 5.4 {ratio} Normal [facility] Comment on above: Performed By: #### L IPID, CMP #### [facility] [address] [address] [address] Jamia Chin HDL NORMAL > or = 60 mg/dl - LO W CARDIOVASCULAR RISK <40 mg/dl - HIGH CARDIOVASCULAR RISK Normal [facility] Comment on above: Performed By: #### L IPID, CMP #### [facility] [address] [address] [address] Jamia Chin LDL CALC NORMAL SEE BELOW Normal [facility] Comment on above: Result Comment: <100 mg/dl OPTIMAL 100 - 129 mg/dl NEAR OR ABOVE OPTIMAL 130 - 159 mg/dl BORDERLINE HIGH 160 - 189 mg/dl HIGH >190 mg/dl VERY HIGH Performed By: #### L IPID, CMP #### [facility] [address] [place] [address] Dr. Jamia Chin Triglyceride [Mass/Vol] 212 mg/dL Critically high <=150 [facility] Comment on above: Performed By: #### L IPID, CMP #### [facility] [address] [place] [address] Dr. Jamia Chin VLDL CALC 42.4 mg/dL Normal [facility] Comment on above: Performed By: #### L IPID, CMP #### [facility] [address] [place] [address] Dr. Jamia Chin PROF 14(COMP METB)on 022 Albumin [Mass/Vol] 4.3 g/dL Normal 3.5-5.0 [facility] Comment on above: Performed By: #### L IPID, CMP #### [facility] [address] [place] [address] Dr. Jamia Chin Albumin/Globulin [Mass ratio] 1.3 {ratio} Normal [facility] Comment on above: Performed By: #### L IPID, CMP #### [facility] [address] [place] [address] Dr. Jamia Chin ALP [Catalytic activity/Vol] 155 U/L Critically high 38-126 [facility] Comment on above: Performed By: #### L IPID, CMP #### [facility] [address] [place] [address] Dr. Jamia Chin ALT [Catalytic activity/Vol] 76 U/L Critically high 21-72 [facility] Comment on above: Performed By: #### L IPID, CMP #### [facility] [address] [place] [address] Dr. Jamia Chin Anion gap [Moles/Vol] 12.2 mmol/L Normal [facility] Comment on above: Performed By: #### L IPID, CMP #### [facility] [address] [address] [address] Jamia Chin AST [Catalytic activity/Vol] 16 U/L Critically low 17-59 [facility] Comment on above: Performed By: #### L IPID, CMP #### [facility] [address] [place] [address] Dr. Jamia Chin Bilirubin [Mass/Vol] 0.6 mg/dL Normal 0.2-1.3 [facility] Comment on above: Performed By: #### L IPID, CMP #### [facility] [address] [place] [address] Dr. Jamia Chin Calcium [Mass/Vol] 9.2 mg/dL Normal 8.4-10.2 [facility] Comment on above: Performed By: #### L IPID, CMP #### [facility] [address] [place] [address] Dr. Jamia Chin Chloride [Moles/Vol] 103 mmol/L Normal 98-107 [facility] Comment on above: Performed By: #### L IPID, CMP #### [facility] [address] [place] [address] Dr. Jamia Chin CO2 [Moles/Vol] 27.1 mmol/L Normal 22.0-30.0 [facility] Comment on above: Performed By: #### L IPID, CMP #### [facility] [address] [place] [address] Dr. Jamia Chin Creatinine [Mass/Vol] 0.91 mg/dL Normal 0.66-1.25 [facility] Comment on above: Performed By: #### L IPID, CMP #### [facility] [address] [place] [address] Dr. Jamia Chin EGFR-AF TUVALUAN >60 Normal >=60 [facility] Comment on above: Performed By: #### L IPID, CMP #### [facility] [address] [place] [address] Dr. Jamia Chin EGFR-NON AF TUVALUAN >60 Normal >=60 [facility] Comment on above: Performed By: #### L IPID, CMP #### [facility] [address] [address] [address] Jamia Chin Globulin (S) [Mass/Vol] 3.3 g/dL Normal [facility] Comment on above: Performed By: #### L IPID, CMP #### [facility] [address] [address] [address] Jamia Chin Glucose [Mass/Vol] 343 mg/dL Critically high 74-106 [facility] Comment on above: Performed By: #### L IPID, CMP #### [facility] [address] [place] [address] Dr. Jamia Chin Potassium [Moles/Vol] 4.3 mmol/L Normal 3.4-5.0 [facility] Comment on above: Performed By: #### L IPID, CMP #### [facility] [address] [place] [address] Dr. Jamia Chin Protein [Mass/Vol] 7.6 g/dL Normal 6.1-8.2 [facility] Comment on above: Performed By: #### L IPID, CMP #### [facility] [address] [place] [address] Dr. Jamia Chin Sodium [Moles/Vol] 138 mmol/L Normal 137-145 [facility] Comment on above: Performed By: #### L IPID, CMP #### [facility] [address] [place] [address] Dr. Jamia Chin Urea nitrogen [Mass/Vol] 19.0 mg/dL Normal 9.0-20.0 [facility] Comment on above: Performed By: #### L IPID, CMP #### [facility] [address] [place] [address] Dr. Jamia Chin Urea nitrogen/Creatinine [Mass ratio] 20.9 mg/mg Normal [facility] Comment on above: Performed By: #### L IPID, CMP #### [facility] [address] [place] [address] Dr. Jamia Chin Vital Signs Date Time Vital Sign Value Performing Clinician Faci lity 02-01-2024 09:24-0400 Diastolic blood pressure 78 mm[Hg] Lynn Finnegan MD Work Phone: [facility] 02-01-2024 09:24-0400 Systolic blood pressure 140 mm[Hg] Lynn Finnegan MD Work Phone: [facility] 02-01-2024 09:20-0400 Body height 167.6 cm Lynn Finnegan MD Work Phone: [facility] 02-01-2024 09:20-0400 Body mass index (BMI) [Ratio] 23.92 kg/m2 Lynn Finnegan MD Work Phone: [facility] 02-01-2024 09:20-0400 Body weight 67.22 kg Lynn Finnegan MD Work Phone: [facility] 02-01-2024 09:20-0400 Heart rate 70 /min Lynn Finnegan MD Work Phone: [facility] 02-01-2024 09:20-0400 SaO2% (BldA) [Mass fraction] 98 % Lynn Finnegan MD Work Phone: [facility] Encounters Encounter Date Encounter Type Care Provider Facility Start: 02-01-2024 End: 02-01-2024 Telephone encounter Adele Piña CMA [facility] Start: 02-01-2024 End: 02-01-2024 Office outpatient new 45 minutes Lynn Finnegan MD Work Phone: [facility] Comment on above: Ischemia of both low er extremities (Primary Dx); Cigarette smoker; Claudication ([facility]) Start: 02-01-2024 End: 02-01-2024 ambulatory [facility] Comment on above: Ischemia of both low er extremities (Primary Dx) Start: 01-31-2024 ambulatory [facility] Start: 01-18-2022 End: 01-18-[address] MYRNA MULTANI Facility:[facility] Start: 12-31-2021 End: 01-01-[address] MYRNA MULTANI Facility:[facility] Start: 10-08-2021 End: 10-09-[address] MYRNA MULTANI Facility:[facility] Procedures Date Procedure Procedure Detail Performing Clinician Start: 10-08-[address] WILLIAM MULTANI Comment on above: Performed By: #### P [facility] #### [facility] [address] [place], [place] [address] Dr. Jamia Chin Plan of Treatment Date Care Activity Detail Author Start: 02-13-2025 End: 02-13-2025 Patient encounter procedure 02/13/2025 8:30 AM EDT [facility] [address] [place] [phone] Lynn Finnegan MD [address], [place] [address] [facility] Start: 01-31-2025 Adult BMI Screening Adult BMI Screen ing [facility] Start: 01-31-2025 Tobacco Screening Tobacco Screening [facility] Start: 01-12-2025 End: 02-11-2025 US.doppler Extremity arteries - bilateral for physiologic artery study Vas art doppler lwr bilat mult lev/PVR Vascular Ultrasound Routine Ischemia of both lower extremities Expected: 01/12/2025, Expires[facility] Comment on above: Expected: 01/12/2025 , Expires: 02/11/2025 Start: 04-14-2024 Influenza vaccination Influenza Vacc ine [facility] Start: 2012 Administration of varicella zoster vaccine Zoster (Shingles) Vaccine (1 of 2) [facility] Start: 1981 DTaP,Tdap and Td Vac cines (1 - Tdap) DTaP,Tdap and Td Vaccines (1 - Tdap) [facility] Start: 1974 Depression Screening Depression Scre ening [facility] Start: 1962 Tobacco Counseling Tobacco Counselin g [facility] Payers Date Payer Category [place] [id number] 2019-Present [phone] [address] [place] [address] [id number] 1962 Unknown [id number] 1962 Unknown [id number] 1962 Unknown [id number] 1962 Unknown [id number] 1962 Unknown [id number] 1957 Medicaid [id number] 1957 Medicare [id number] Social History Date Type Detail Facility Start: 08-14-1971 [facility] Start: 08-14-1971 History of tobacco use Cigarette Smo ker [facility] Start: 01-21-2019 End: 02-01-2024 Cigarettes smoked current (pack per day) - Reported 0.5 [facility] Start: 02-01-2024 Tobacco use and exposure User of smokeless tobacco [facility] Start: 02-01-2024 Alcoholic beverage intake Defer [facility] Start: 01-21-2019 End: 02-01-2024 Tobacco use panel [facility] Childcare Unknown [facility] Start: 1960 Sex assigned at Not on file P [facility] Clinical Notes 12-31-2021 to 02-01-2024 Telephone Encounter - Adele iPña [facility] - 02/01/2024 9:58 AM EDTTelephone Encounter - Adele Piña [facility] - 02/01/2024 9:58 AM Fabiola Finnegan MD - 02/01/2024 9:20 AM EDTPatient Instructions Note Date & Type Note Facility 02-01-2024 Miscellaneous Notes A user error has taken place: encounter opened in error, closed for administrative reasons. documented in this encounter [facility] 02-01-2024 Telephone encounter Note A user error has taken place: encounter opened in error, closed for administrative reasons. [facility] 02-01-2024 Evaluation + Plan note Associated Problem(s): Claudication ([facility]) Smoking cessation, ASA,Crestor, walking program PVR and follow up in a year [facility] 02-01-2024 Evaluation + Plan note Associated Problem(s): Cigarette smoker Counselled for smoking cessation in length, at least 4 min. [facility] 02-01-2024 Miscellaneous Notes Associated Problem(s): Claudication (CMS-HCC) Smoking cessation, ASA,Crestor, walking program PVR and follow up in a year Associated Problem(s): Cigarette smoker Counselled for smoking cessation in length, at least 4 min. documented in this encounter [facility] 02-01-2024 History of Presen t illness Narrative Images from the original note were not included. To: No primary care provider on file. HPI: Lionel Landin is a 63 y.o. male with Bilateral lower extremity peripheral arterial disease and claudication. His PVR and arterial duplex are consistent with below-knee occlusive disease. His PIO is mildly reduced. He is a heavy smoker and continues to smoke since the age of 11. I counseled him on smoking cessation in length. I offered him supervised walking program. He does not want to do the supervised walking program. I recommended that he takes aspirin and statin. He is on 325 and Crestor. Will continue those. For his atherosclerotic disease.. No tissue loss. Review of Systems: Review of Systems Constitutional: Negative. HENT: Negative. Respiratory: Negative. Cardiovascular: Negative. Gastrointestinal: Negative. Endocrine: Negative. Genitourinary: Negative. Musculoskeletal: Negative. Skin: Negative. Neurological: Negative. Hematological: Negative. Medications: Current Outpatient Medications on File Prior to Visit Medication Sig Dispense Refill pioglitazone (ACTOS) 15 mg tablet Take 1 tablet (15 mg total) by mouth in the morning. rosuvastatin (CRESTOR) 5 mg tablet Take 1 tablet (5 mg total) by mouth in the morning. aspirin 325 mg tablet Take 1 tablet (325 mg total) by mouth every 6 (six) hours as needed. ibuprofen (AdviL) 200 mg tablet Take 1 tablet (200 mg total) by mouth every 6 (six) hours as needed. metoprolol tartrate (LOPRESSOR) 25 mg tablet Take 1 tablet (25 mg total) by mouth in the morning and 1 tablet (25 mg total) before bedtime. varenicline (CHANTIX STARTING MONTH BOX) 0.5 mg (11)- 1 mg (42) tablet Take 0.5 mg by mouth in the morning and 0.5 mg before bedtime. No current facility-administered medications on file prior to visit. Past Medical History: History reviewed. No pertinent past medical history. Past Surgical History: No past surgical history on file. Social and Family History: Social History Socioeconomic History Marital status: Spouse name: Not on file Number of children: Not on file Years of education: Not on file Highest education level: Not on file Occupational History Not on file Tobacco Use Smoking status: Every Day Current packs/day: 0.50 Average packs/day: 0.5 packs/day for 52.5 years (26.2 ttl pk-yrs) Types: Cigarettes Start date: 1971 Smokeless tobacco: Current Substance and Sexual Activity Alcohol use: Defer Drug use: Yes Types: Medical Marijuana Comment: Gummie to help sleep Sexual activity: Not on file Other Topics Concern Not on file Social History Narrative Not on file Social Determinants of Health Financial Resource Strain: Not on file Food Insecurity: No Food Insecurity (02/01/2024) Hunger Screening Food Insecurity - Worry: Never True Food Insecurity - Inability: Never True Transportation Needs: Not on file Physical Activity: Not on file Stress: Not on file Social Connections: Not on file Interpersonal Safety: Not on file Housing Instability: Not on file History reviewed. No pertinent family history. Recent Labs: Recent and relative labs were reviewed and interpreted and contributed to the assessment and plan below. Vitals: BP 140/78 (BP Site: Left Arm, BP Postition: Sitting, BP CUFF SIZE: M (9-13 inches)) Pulse 70 Ht 167.6 cm (5' 6 ) Wt 67.2 kg (148 lb 3.2 oz) SpO2 98% BMI 23.92 kg/m Body mass index is 23.92 kg/m . Physical Exam: Physical Exam Constitutional: Appearance: Normal appearance. HENT: Head: Normocephalic and atraumatic. Mouth/Throat: Mouth: Mucous membranes are moist. Eyes: Extraocular Movements: Extraocular movements intact. Pupils: Pupils are equal, round, and reactive to light. Cardiovascular: Rate and Rhythm: Normal rate and regular rhythm. Pulmonary: Effort: Pulmonary effort is normal. Breath sounds: Normal breath sounds. Abdominal: General: Abdomen is flat. Bowel sounds are normal. Palpations: Abdomen is soft. Musculoskeletal: General: Normal range of motion. Cervical back: Normal range of motion. Skin: General: Skin is warm and dry. Neurological: General: No focal deficit present. Mental Status: He is alert and oriented to person, place, and time. Mental status is at baseline. Psychiatric: Mood and Affect: Mood normal. Behavior: Behavior normal. Thought Content: Thought content normal. Judgment: Judgment normal. Recent testing: PVR venous duplex Assessment and Plan: Problem List Cigarette smoker Current Assessment & Plan Counselled for smoking cessation in length, at least 4 min. Claudication ([facility]) Current Assessment & Plan Smoking cessation, ASA,Crestor, walking program PVR and follow up in a year Lionel was seen today for leg pain and cold feet. Diagnoses and all orders for this visit: Ischemia of both lower extremities - [facility] [place], [place] Cigarette smoker Claudication ([facility]) Lynn Finnegan MD, SKYLER, RPVI, FSVS, FACS [facility] This note was created with the assistance of a speech recognition program. While intending to generate a timely document that accurately reflects the content of the visit, no guarantee can be provided that every grammatical or spelling mistake has been or will be identified or corrected. Thank you for your understanding. documented in this encounter [facility] 02-01-2024 Instructions Lynn Finnegan MD - 02/01/2024 9:20 AM EDT Are You Ready To Kick The Habit? Free Tobacco Cessation Resources [facility] Services [facility] Tobacco Treatment Centers provide all employees with free tobacco cessation services that include: Counseling to understand nicotine addiction Education about medications that can help you successfully quit Assistance with developing a plan to quit Call to set up an individual appointment or find out when group classes will be held: [facility]: [phone] [facility]: [phone] [facility]: [phone] [facility]: [phone] Quit Smoking Action Plan and Resources [facility] offers an eight-week, online smoking cessation plan to all [facility] employees, regardless of whether [employer] is your medical insurance provider. Go to [email or web address]/employeewell ness and click the Health Risk Assessment and Resources link to get started. In the [employer] menu, click Action Plans instead of Health Risk Assessment to access the Quit Smoking Action Plan. Additional smoking cessation resources are also available to all [facility] employees on the [employer] web page at www.LSEO/quit smoking. [employer] Tobacco Cessation Program If [employer] is your medical insurance provider, there are more free resources available to you, including: No copays or deductibles on local tobacco cessation counseling services to help you quit Prescription assistance for tobacco cessation medications to help you quit For details about the tobacco cessation program available to [employer] members, go to www.LSEO (Search: Tobacco Cessation Program). [place] Tobacco Quit Line 7-990-UGLY-NOW ( ) is a toll-free, telephonic service that helps [place] residents quit smoking and using tobacco. It is staffed by experts who tailor a quit plan for you and provide you with advice. [place] Tobacco Quit Line 6-250-ZGVU-NOW ( ) is a toll-free, telephonic service that helps [place] residents quit smoking and using tobacco. It is staffed by experts who tailor a quit plan for you and provide you with advice. Two weeks of nicotine replacement therapy may be provided at no charge, if needed. Additional Resources These national organizations also offer free information and resources to help you quit tobacco: [place] [employer]--www.cancer.org/healthy/ stayawayfromtobacco [place] [employer]--www.heart.org (Search: Quit Smoking) Centers for Disease Control and Prevention--www.cdc.gov/tobacco [place] [employer] Association--www.lungusa.org documented in this encounter [facility] 12-31-2021 Note PROCEDURE: XR SHOULD ER RT [...] by: LESLIE MCGOVERN Date: 2021-12-31 16:19 [facility] Evaluation note Diagnosis Ischemia of both lower extremities- Primary [facility] Diagnosis Ischemia of both lower extremities- Primary Cigarette smoker Tobacco use disorder Claudication ([facility]) Unspecified peripheral vascular disease documented in this encounter [facility] SystemInstructionsNot on filedocumented in this encounter [facility] on filedocumented in this encounter [facility] Summary Purpose Family History No Family History Records FoundNo Family History Records Found Advance Directives No Advanced Directives Records FoundNo Advanced Directives Records Found Reason for Referral Specialty Diagnoses / Procedures Referred By Contac t Referred To Contact Diagnoses Ischemia of both lower extremities Procedures Vas art doppler lwr bilat mult lev/PVR Lynn Finnegan MD [address], [address] [address] Referral ID Status Reason Start Date Expiration Date V isits Requested Visits Authorized [id number] Pending Review 02/01/2024 01/31/2025 1 1 Additional Source Comments (unrecognized sect ion and content) No Status Records FoundNo Status Records Found INFORMATION SOURCE (unrecogn ized section and content) DATE CREATED AUTHOR 01/20/2022 [facility] DATE CREATED AUTHOR AUTHOR'S ORGANIZ ATION 02/02/2024 [facility] Reason for Visit (unrecogniz ed section and content) Reason Comments Leg Pain Right leg today is a 6 As the day goes on it gets worse Cold Feet Feet get cold and bu rn Specialty Diagnoses / Procedures Referred By Contac t Referred To Contact Vascular Surgery Diagnoses Ischemia of both lower extremities Myrna Multani MD [address] [place] [address] Lynn Finnegan MD [address], [address] [address] Referral ID Status Reason Start Date Expiration Date Visits Requested Visits Authorized [id number] Pending Review Specialty Services Required 01/30/2024 01/29/2025 1 1 FOR RECORDS PERTAINING TO PATIENTS WHO ARE [...] BE BASED ON THE PRIMARY CLINICAL RECORDS. ffk environment [facility]. provides no warranty or guarantee of the accuracy or completeness of information in this document.
--- NOTE | 2024-11-24 16:20 | ED.UPPEXIN1 ---
Documented by User: RICHARDSON Patel 11/24/24 17:04 HPI HPI - Extremity Injury (Upper) General Chief Complaint: Extremity Injury, Upper Stated Complaint: UPPER EXTREMITY INJURY Time Seen by Provider: 11/24/24 16:08 Source: patient Mode of arrival: walk-in History of Present Illness HPI narrative: 63-year-old male presents to the ER with concerns of injury to his left ring finger. Patient was using a small chainsaw at home without gloves when it struck his left ring finger. He has 2 lacerations approximately 0.5 cm involving the volar aspect of his proximal proximal phalanx. Minimal bleeding on arrival. He denies any numbness or tingling distally. He has another small abrasion to the distal middle finger. No evidence of nail injury. Patient is unsure of his last tetanus. States pain is tolerable. Patient mostly concerned that he has diabetic and his wounds seem to take forever to heal. He is with a prior history of cardiac stents. Spouse is present at bedside. Injury occurred 1.5 hours prior to arrival per patient. MD complaint: injury to: Reports left and finger Other injuries: Reports none Hand dominance: right Place: Reports home Severity: mild Relieving factors: Reports none Exacerbating factors: Reports none Context: Reports other (laceration from small chainsaw) Associated symptoms: Reports denies other symptoms Treatments prior to arrival: Reports cold therapy Related Data Home Medications ?Medication ?Instructions ?Recorded ?Confirmed clopidogrel 75 mg tablet 75 mg PO DAILY 11/24/24 11/24/24 empagliflozin 25 mg tablet 25 mg PO DAILY 11/24/24 11/24/24 (Jardiance) glimepiride 4 mg tablet 4 mg PO BID 11/24/24 11/24/24 metoprolol tartrate 25 mg tablet 25 mg PO BID 11/24/24 11/24/24 pioglitazone 15 mg tablet 15 mg PO DAILY 11/24/24 11/24/24 rosuvastatin 5 mg tablet 5 mg PO DAILY 11/24/24 11/24/24 Previous Rx's ?Medication ?Instructions ?Recorded cephalexin 500 mg capsule 500 mg PO TID 5 days #15 caps 11/24/24 Allergies Allergy/AdvReac Type Severity Reaction Status Date / Time No Known Drug Allergies Allergy Verified 11/24/24 15:58 Opioid HPI Opioid Management Most Recent Pain and Opioid Data: No Data to Display Review of Systems ROS Constitutional Denies: fever or chills Eyes Denies: change in vision Ears, nose, mouth, and throat Denies: throat pain Cardiovascular Denies: chest pain or palpitations Respiratory Denies: shortness of breath Gastrointestinal Denies: abdominal pain Musculoskeletal Reports: extremity pain; Denies: back pain or neck pain Neurological Denies: headache Hematologic/Lymphatic Reports: easy bruising PFSH PFSH Social History Little interest or pleasure in doing things: not at all Feeling down, depressed, or hopeless: not at all Exam Narrative Exam Narrative: Nurse's notes and vital signs reviewed. Patient is not hypoxic. General: The patient appears well and in no apparent distress. Patient is resting comfortably on cart. Skin: Warm, dry, no pallor noted. 2 seperate Linear less than 0.5 cm patient's to the volar aspect of the left ring finger proximal phalanx. No evidence of joint involvement. Patient to the distal aspect of the middle finger no nail injury Head: Normocephalic, atraumatic Eye: Normal conjunctiva Respiratory: Patient is in no distress Musculoskeletal: The left wrist and hand shows no obvious deformity. There was no swelling noted. The patient had finger flexion extension despite localized pain. No evidence of nail injury. The patient had tenderness to the laceration. No diffuse tenderness along the flexor tendon. Triggering or locking. The patient had no tenderness in the anatomical snuff box. The patient had no pain with axial loading of the thumb. Pulses are intact at brachial and radial 2+. There was no deficit at the elbow or shoulder. The patient has normal capillary refill to all distal digits. The patient has no evidence of cyanosis or mottling. The patient is able to flex and extend all digits without difficulty. Neurological: A&O x4, normal sensory, normal motor Psychiatric: Cooperative Constitutional Vital Signs, click to edit/add: Last Vital Signs Temp 98.0 F 11/24/24 15:52 Pulse 73 11/24/24 15:52 Resp 18 11/24/24 15:52 BP 153/80 H 11/24/24 15:52 Pulse Ox 97 11/24/24 15:52 O2 Del Method Room Air 11/24/24 15:52 Course Vital Signs Vital signs: Vital Signs Temperature 98.0 F 11/24/24 15:52 Pulse Rate 73 11/24/24 15:52 Respiratory Rate 18 11/24/24 15:52 Blood Pressure 153/80 H 11/24/24 15:52 Pulse Oximetry 97 11/24/24 15:52 Oxygen Delivery Method Room Air 11/24/24 15:52 Temperature 98.0 F 11/24/24 15:52 Pulse Rate 73 11/24/24 15:52 Respiratory Rate 18 11/24/24 15:52 Blood Pressure 153/80 H 11/24/24 15:52 Pulse Oximetry 97 11/24/24 15:52 Oxygen Delivery Method Room Air 11/24/24 15:52 MDM - Extremity Injury (Upper) MDM Narrative Medical decision making narrative: Patient presented with chainsaw laceration left ring finger that occurred 1-1/2 hours prior to arrival, soaked in Hibiclens solution. Had tetanus shot updated, history of diabetes and Plavix notes he has a hard time getting wounds to heal will be placed on Keflex prophylactically even though there is no infection noted today. Patient will likely not stop using his hands despite discussion at bedside to allow the finger to rest. We discussed not submerging the wound. X-ray was performed and there is no evidence of fracture or radio opaque foreign body. Lacerations do not require a finger splint given location. We discussed to avoid any heavy gripping for optimal wound healing. Patient verbalized understanding. He is encouraged to follow-up with his family doctor in 8 to 10 days for suture removal. Biotic use discussed along with his history of diabetes and wound. Patient will take with food. The patient is to followup with primary care physician in next 8-10 days or to return to the emergency department should any of the signs or symptoms worsen or new symptoms develop. Patient had questions answered. The patient agrees with the following Diagnosis and Treatment plan and the patient will be discharged home. Discharge Plan Discharge Chief Complaint: Extremity Injury, Upper Clinical Impression: Finger laceration Patient Disposition: Home, Self-Care Time of Disposition Decision: 16:59 Condition: Good Prescriptions / Home Meds: New cephalexin 500 mg capsule 500 mg PO TID 5 Days Qty: 15 0RF No Action clopidogrel 75 mg tablet 75 mg PO DAILY Jardiance 25 mg tablet 25 mg PO DAILY glimepiride 4 mg tablet 4 mg PO BID metoprolol tartrate 25 mg tablet 25 mg PO BID pioglitazone 15 mg tablet 15 mg PO DAILY rosuvastatin 5 mg tablet 5 mg PO DAILY Print Language: Faroese Instructions: Finger Laceration (ED) Additional Instructions: Recommend appt with Dr. Multani in 78-10 days for suture removal Referrals: Marshall Multani MD [Primary Care Provider] - 1 week Discharge Date/Time: 11/24/24 17:06 Procedures ED Procedure Instructions Procedures Procedures: Laceration repair: Done under sterile conditions. The use of Hibiclens was used to prep and clean the area. Local injection with lidocaine 1% was used, approximately 1 cc. The wound was irrigated copiously with normal saline. The wound was explored there was no evidence of foreign material. The lacerations were approximated with 5-0 nylon. 2 simple interrupted sutures were placed in ulnar side and 1 suture in radial Patient tolerated the procedure well. The patient was neurovascularly intact post. the patient had bacitracin applied to the laceration and a dry sterile dressing was place. The patient will need to follow-up in the next 8-10 days for removal. Documented by User: Stephen Patel MD 11/24/24 20:00 HPI HPI - Extremity Injury (Upper) General Chief Complaint: Extremity Injury, Upper Stated Complaint: UPPER EXTREMITY INJURY Time Seen by Provider: 11/24/24 16:08 Related Data Home Medications ?Medication ?Instructions ?Recorded ?Confirmed clopidogrel 75 mg tablet 75 mg PO DAILY 11/24/24 11/24/24 empagliflozin 25 mg tablet 25 mg PO DAILY 11/24/24 11/24/24 (Jardiance) glimepiride 4 mg tablet 4 mg PO BID 11/24/24 11/24/24 metoprolol tartrate 25 mg tablet 25 mg PO BID 11/24/24 11/24/24 pioglitazone 15 mg tablet 15 mg PO DAILY 11/24/24 11/24/24 rosuvastatin 5 mg tablet 5 mg PO DAILY 11/24/24 11/24/24 Previous Rx's ?Medication ?Instructions ?Recorded cephalexin 500 mg capsule 500 mg PO TID 5 days #15 caps 11/24/24 Allergies Allergy/AdvReac Type Severity Reaction Status Date / Time No Known Drug Allergies Allergy Verified 11/24/24 15:58 Opioid HPI Opioid Management Most Recent Pain and Opioid Data: No Data to Display PFSH PFSH Social History Little interest or pleasure in doing things: not at all Feeling down, depressed, or hopeless: not at all Exam Constitutional Vital Signs, click to edit/add: Last Vital Signs Temp 98.0 F 11/24/24 15:52 Pulse 73 11/24/24 15:52 Resp 18 11/24/24 15:52 BP 153/80 H 11/24/24 15:52 Pulse Ox 97 11/24/24 15:52 O2 Del Method Room Air 11/24/24 15:52 Course Vital Signs Vital signs: Vital Signs Temperature 98.0 F 11/24/24 15:52 Pulse Rate 73 11/24/24 15:52 Respiratory Rate 18 11/24/24 15:52 Blood Pressure 153/80 H 11/24/24 15:52 Pulse Oximetry 97 11/24/24 15:52 Oxygen Delivery Method Room Air 11/24/24 15:52 Temperature 98.0 F 11/24/24 15:52 Pulse Rate 73 11/24/24 15:52 Respiratory Rate 18 11/24/24 15:52 Blood Pressure 153/80 H 11/24/24 15:52 Pulse Oximetry 97 11/24/24 15:52 Oxygen Delivery Method Room Air 11/24/24 15:52 MDM - Extremity Injury (Upper) MDM Narrative Medical decision making narrative: Patient presented with chainsaw laceration left ring finger that occurred 1-1/2 hours prior to arrival, soaked in Hibiclens solution. Had tetanus shot updated, history of diabetes and Plavix notes he has a hard time getting wounds to heal will be placed on Keflex prophylactically even though there is no infection noted today. Patient will likely not stop using his hands despite discussion at bedside to allow the finger to rest. We discussed not submerging the wound. X-ray was performed and there is no evidence of fracture or radio opaque foreign body. Lacerations do not require a finger splint given location. We discussed to avoid any heavy gripping for optimal wound healing. Patient verbalized understanding. He is encouraged to follow-up with his family doctor in 8 to 10 days for suture removal. Biotic use discussed along with his history of diabetes and wound. Patient will take with food. The patient is to followup with primary care physician in next 8-10 days or to return to the emergency department should any of the signs or symptoms worsen or new symptoms develop. Patient had questions answered. The patient agrees with the following Diagnosis and Treatment plan and the patient will be discharged home. I, Dr Patel, have reviewed the above progress note and course of action in the ER; agree with the above. I have personally gone over history and physical, and discussed disposition and treatment plan with the PA. Discharge Plan Discharge Chief Complaint: Extremity Injury, Upper Clinical Impression: Finger laceration Patient Disposition: Home, Self-Care Time of Disposition Decision: 16:59 Condition: Good Prescriptions / Home Meds: New cephalexin 500 mg capsule 500 mg PO TID 5 Days Qty: 15 0RF No Action clopidogrel 75 mg tablet 75 mg PO DAILY Jardiance 25 mg tablet 25 mg PO DAILY glimepiride 4 mg tablet 4 mg PO BID metoprolol tartrate 25 mg tablet 25 mg PO BID pioglitazone 15 mg tablet 15 mg PO DAILY rosuvastatin 5 mg tablet 5 mg PO DAILY Print Language: Faroese Instructions: Finger Laceration (ED) Additional Instructions: Recommend appt with Dr. Multani in 78-10 days for suture removal Referrals: Marshall Multani MD [Primary Care Provider] - 1 week Discharge Date/Time: 11/24/24 17:06
[2024-11-24] MEDS: ADACEL DIPH,PERTUSS(ACELL),TET VAC/PF 0.5 ML ADULT SYRINGE IM (16:31)
[2024-11-24] MEDS: CEPHALEXIN 500 MG CAPSULE PO (16:31)
[2024-11-24] MEDS: LIDOCAINE HCL 1% 100 MG/10 ML MDV INJ (16:31)
== END 2024-11-24 17:06 | disposition home or self-care (01) ==
PROVIDERS: Emergency Provider Emergency Medicine; PCP Family Medicine
DX: S61.215A Laceration without foreign body of left ring finger without damage to nail, initial encounter (principal); S61.213A Laceration without foreign body of left middle finger without damage to nail, initial encounter; W29.3XXA Contact with powered garden and outdoor hand tools and machinery, initial encounter; E11.9 Type 2 diabetes mellitus without complications; Z95.5 Presence of coronary angioplasty implant and graft; Z79.84 Long term (current) use of oral hypoglycemic drugs; Z23 Encounter for immunization; Z79.02 Long term (current) use of antithrombotics/antiplatelets
CPT/HCPCS: 12001; 73140; 90471; 90715; 99284

== ENCOUNTER 2024-12-26 11:07 | Outpatient (OUT) | payer MEDICARE, MEDICAID, SELFPAY ==
--- NOTE | 2024-12-26 11:16 | CT_ITS ---
[address] [address] Patient Name: MARINO GARCES MRN: [id number] date: 1960 Sex: M Assigned Patient Location: LAB Current Patient Location: LAB Accession/Order Number: [id number] Exam Date: 12/26/2024 13:35 Report Date: 12/26/2024 13:51 At the request of: MYRNA NAVARRO MD Procedure: CT abdomen pelvis wo/w con CT abdomen pelvis wo/w con 12/26/2024 12:49 PM SIGNS AND SYMPTOMS: Right-sided low back pain, flank pain, GI bleeding TECHNIQUE: Multidetector ct axial images of the abdomen and pelvis were obtained with an without IV contrast. Multiplanar reformats were performed and reviewed to further define anatomy and possible pathology. CT was performed with one or more of the following dose reduction techniques: Automated exposure control, adjustment of the mA and/or kV according to patient size, or use of iterative reconstruction technique. COMPARISON: 07/16/2019. FINDINGS: Lower Chest: Atherosclerotic changes are noted in the thoracic aorta. ABDOMEN: Liver: The liver is hypoattenuating suggesting hepatic steatosis. This is similar to the prior exam. Bile Ducts: Normal caliber. Gallbladder: There is a stone dependently layering in the gallbladder lumen. This is similar to the prior study. Pancreas: Within normal limits. Spleen: Within normal limits. Adrenals: There is a nodule in the right adrenal gland measuring 2.0 x 1.7 cm in greatest dimension. This is similar to the prior exam. This is presumed to BE benign. Kidneys: There are 2 stones in the left renal collecting system measuring 3 mm in greatest dimension. There are simple cysts in the renal cortices requiring no further follow-up. Pelvis: Reproductive Organs: No pelvic masses. Ureters: Within normal limits. Bladder: Within normal limits. Bowel: Uncomplicated colonic diverticula are noted. There is no bowel obstruction. There is a normal appendix in the right lower quadrant. Mesenteric Lymph Nodes: No enlarged mesenteric lymph nodes. Peritoneum: No ascites or free air, no fluid collection. Vessels: Atherosclerotic changes are noted in the abdominal aorta and its branches. Retroperitoneum: Within normal limits. Abdominal Wall: Within normal limits. Bones: Degenerative changes are noted in the lower lumbar spine. Degenerative changes are noted in the hips and sacroiliac joints. There is a central disc protrusion at L4-5 contributing to spinal canal stenosis. Broad-based disc bulges are noted at L2-L3 and L5-S1. This contributes to spinal canal and neural foraminal stenosis. CT/CT abdomen pelvis wo/w con IMPRESSION: No acute intra-abdominal pathology. Nonobstructing renal stones are noted on the left measuring up to 3 mm in greatest dimension. Disc degenerative changes are noted in the lower lumbar spine, greatest at L4-5 contributing to spinal canal and neural foraminal stenosis as above. Findings suggest hepatic steatosis. Impression dictated by: Cirilo Chester M.D. 12/26/2024 1:51 PM Dictation Location: [place] [address] Electronically authenticated by: [id number] Y Date: 12/26/2024 13:51
--- OUTSIDE RECORDS SUMMARY | 2024-12-26 11:20 | XMS_ITS | CCD ---
Author Organization [facility] Care Team Providers Care [employer] Maker Name Role Phone DR MYRNA MULTANI [...] Translations: [SULFAMETHOXAZOLE-T RIMETHOPRIM] Drug Allergy 10-10-19 11 [facility] Repository (1 source) Penicillin Drug Allergy [facility] Repository (3 sources) Penicillins Propensity to adverse reactions to drug 02-01-20 24 [facility] (3 sources) Sulfamethoxazole / Trimethoprim Drug Allergy 10-10-19 11 Other (See Comments) [facility] Medications Current Medications Medication Drug Class(es) Dates [...] disease (10 sources) Atherosclerotic heart disease of [place] coronary artery without angina pectoris; Translations: [Coronary [...] by: KASSIE MANNING Date: 2022-01-18 18:25 Normal [facility] XR ARTHRO SHLD RTon 01-19-20 [...] KASSIE MANNING Date: 2022-01-18 15:04 Normal [facility] XR FOREIGN BODY EYEon 2021 XR [...] KASSIE MANNING Date: 2022-01-18 13:55 Normal [facility] XR CSPINE MIN 4 VIEWSon 12-13 [...] LESLIE MCGOVERN Date: 2021-12-31 16:24 Normal [facility] CBC AUTO DIFFon 10-08-2021 BASO # 0.0 103/ul Normal 0.0-0.1 [facility] Comment on above: Performed By: #### C #### [facility] [address] [place] [address] Dr. Jamia Chin Basophils/100 WBC (Bld) 0.4 % Normal 0.2-2.0 [facility] Comment on above: Performed By: #### C BC #### [facility] [address] [place] [address] Dr. Jamia Chin EO # 0.2 103/ul Normal 0.0-0.7 [facility] Comment on above: Performed By: #### C BC #### [facility] [address] [place] [address] Dr. Jamia Chin Eosinophils/100 WBC (Bld) 2.1 % Normal 0.9-7.0 [facility] Comment on above: Performed By: #### C BC #### [facility] [address] [place] [address] Dr. Jamia Chin Erythrocyte distribution width (RBC) [Ratio] 13.2 % Normal 11.0-15.0 [facility] Comment on above: Performed By: #### C BC #### [facility] [address] [place] [address] Dr. Jamia Chin Hematocrit (Bld) [Volume fraction] 48.3 % Normal 42.0-54.0 [facility] Comment on above: Performed By: #### C BC #### [facility] [address] [place] [address] Dr. Jamia Chin Hemoglobin (Bld) [Mass/Vol] 16.9 g/dL Normal 14.0-18.0 [facility] Comment on above: Performed By: #### C BC #### [facility] [address] [place] [address] Dr. Jamia Chin IG # 0.03 10e3/ul Normal 0.00-0.03 [facility] Comment on above: Performed By: #### C BC #### [facility] [address] [place] [address] Dr. Jamia Chin IG % 0.3 % Normal 0.0-0.5 [facility] Comment on above: Performed By: #### C BC #### [facility] [address] [address] [address] Jamia Chin LYMPH # 2.0 103/ul Normal 1.2-3.8 [facility] Comment on above: Performed By: #### C BC #### [facility] [address] [place] [address] Dr. Jamia Chin Lymphocytes/100 WBC (Bld) 22.5 % Normal 20.5-60.0 [facility] Comment on above: Performed By: #### C BC #### [facility] [address] [place] [address] Dr. Jamia Chin MANUAL DIFF REQ NO Normal [facility] Comment on above: Performed By: #### C BC #### [facility] [address] [place] [address] Dr. Jamia Chin MCH (RBC) [Entitic mass] 30.7 pg Normal 25.9-34.0 [facility] Comment on above: Performed By: #### C BC #### [facility] [address] [place] [address] Dr. Jamia Chin MCHC (RBC) [Mass/Vol] 35.0 g/dL Normal 29.9-35.2 [facility] Comment on above: Performed By: #### C BC #### [facility] [address] [place] [address] Dr. Jamia Chin MCV (RBC) [Entitic vol] 87.7 fL Normal 80.0-94.0 [facility] Comment on above: Performed By: #### C BC #### [facility] [address] [place] [address] Dr. Jamia Chin MONO # 0.6 103/ul Normal 0.3-0.8 [facility] Comment on above: Performed By: #### C BC #### [facility] [address] [place] [address] Dr. Jamia Chin Monocytes/100 WBC (Bld) 6.7 % Normal 1.7-12.0 [facility] Comment on above: Performed By: #### C BC #### [facility] [address] [place], [place] [id number] Dr. Jamia Chin NEUT # 6.2 103/ul Normal 1.4-6.5 [facility] Comment on above: Performed By: #### C BC #### [facility] [address] [place] [address] Dr. Jamia Chin Neutrophils/100 WBC (Bld) 68.0 % Normal 43.0-75.0 [facility] Comment on above: Performed By: #### C BC #### [facility] [address] [place] [address] Dr. Jamia Chin Platelet mean volume (Bld) [Entitic vol] 9.0 fL Critically low 9.5-13.5 [facility] Comment on above: Performed By: #### C BC #### [facility] [address] [place] [address] Dr. Jamia Chin PLT 209 103/ul Normal 150-450 [facility] Comment on above: Performed By: #### C BC #### [facility] [address] [place] [address] Dr. Jamia Chin RBC 5.51 106/ul Normal 4.70-6.10 [facility] Comment on above: Performed By: #### C BC #### [facility] [address] [place] [address] Dr. Jamia Chin WBC 9.1 103/ul Normal 4.0-11.0 [facility] Comment on above: Performed By: #### C BC #### [facility] [address] [place] [address] Dr. Jamia Chin GLYCOHEMOGLOBIN A1Con 2021 ADA RECOMMENDATION ADA THERAPEUTIC TARG ET 6.0 - 7.0 ACTION SUGGESTED > 7.0 Normal [facility] Comment on above: Performed By: #### A 1C #### [facility] [address] [place] [address] Dr. Jamia Chin Glucose [Mass/Vol] 226 mg/dL Normal [facility] Comment on above: Performed By: #### A 1C #### [facility] [address] [place] [address] Dr. Jamia Chin HbA1c (Bld) [Mass fraction] 9.5 % Critically high <=6.0 [facility] Comment on above: Performed By: #### A 1C #### [facility] [address] [address] [address] Jamia Chin LIPID PROFILEon 10-08-2021 CHOL-HDL RATIO NORM SEE BELOW Normal [facility] Comment on above: Result Comment: 3.3 - 4.4 LOW RISK 4.4 - 7.1 AVERAGE RISK 7.1 - 11.0 MODERATE RISK >11.0 HIGH RISK Performed By: #### L IPID, CMP #### [facility] [address] [address] [address] Jamia Chin Cholesterol [Mass/Vol] 167 mg/dL Normal <=200 [facility] Comment on above: Performed By: #### L IPID, CMP #### [facility] [address] [address] [address] Jamia Chin Cholesterol in HDL [Mass/Vol] 31 mg/dL Normal [facility] Comment on above: Performed By: #### L IPID, CMP #### [facility] [address] [address] [address] Jamia Chin Cholesterol in LDL [Mass/Vol] 93.6 mg/dL Normal [facility] Comment on above: Performed By: #### L IPID, CMP #### [facility] [address] [address] [address] Jamia Chin Cholesterol.total/Ch olesterol in HDL [Mass ratio] 5.4 {ratio} Normal [facility] Comment on above: Performed By: #### L IPID, CMP #### [facility] [address] [address] [address] Jamia Chin HDL NORMAL > or = 60 mg/dl - LO W CARDIOVASCULAR RISK <40 mg/dl - HIGH CARDIOVASCULAR RISK Normal [facility] Comment on above: Performed By: #### L IPID, CMP #### [facility] [address] [address] [address] Jamia Chin LDL CALC NORMAL SEE BELOW Normal [facility] Comment on above: Result Comment: <100 mg/dl OPTIMAL 100 - 129 mg/dl NEAR OR ABOVE OPTIMAL 130 - 159 mg/dl BORDERLINE HIGH 160 - 189 mg/dl HIGH >190 mg/dl VERY HIGH Performed By: #### L IPID, CMP #### [facility] [address] [place] [address] Dr. Jamia Chin Triglyceride [Mass/Vol] 212 mg/dL Critically high <=150 [facility] Comment on above: Performed By: #### L IPID, CMP #### [facility] [address] [place] [address] Dr. Jamia Chin VLDL CALC 42.4 mg/dL Normal [facility] Comment on above: Performed By: #### L IPID, CMP #### [facility] [address] [place] [address] Dr. Jamia Chin PROF 14(COMP METB)on 022 Albumin [Mass/Vol] 4.3 g/dL Normal 3.5-5.0 [facility] Comment on above: Performed By: #### L IPID, CMP #### [facility] [address] [place] [address] Dr. Jamia Chin Albumin/Globulin [Mass ratio] 1.3 {ratio} Normal [facility] Comment on above: Performed By: #### L IPID, CMP #### [facility] [address] [place] [address] Dr. Jamia Chin ALP [Catalytic activity/Vol] 155 U/L Critically high 38-126 [facility] Comment on above: Performed By: #### L IPID, CMP #### [facility] [address] [place] [address] Dr. Jamia Chin ALT [Catalytic activity/Vol] 76 U/L Critically high 21-72 [facility] Comment on above: Performed By: #### L IPID, CMP #### [facility] [address] [place] [address] Dr. Jamia Chin Anion gap [Moles/Vol] 12.2 mmol/L Normal [facility] Comment on above: Performed By: #### L IPID, CMP #### [facility] [address] [address] [address] Jamia Chin AST [Catalytic activity/Vol] 16 U/L Critically low 17-59 [facility] Comment on above: Performed By: #### L IPID, CMP #### [facility] [address] [place] [address] Dr. Jamia Chin Bilirubin [Mass/Vol] 0.6 mg/dL Normal 0.2-1.3 [facility] Comment on above: Performed By: #### L IPID, CMP #### [facility] [address] [place] [address] Dr. Jamia Chin Calcium [Mass/Vol] 9.2 mg/dL Normal 8.4-10.[address] [facility] Comment on above: Performed By: #### L IPID, CMP #### [facility] [address] [place] [address] Dr. Jamia Chin Chloride [Moles/Vol] 103 mmol/L Normal 98-107 [facility] Comment on above: Performed By: #### L IPID, CMP #### [facility] [address] [place] [address] Dr. Jamia Chin CO2 [Moles/Vol] 27.1 mmol/L Normal 22.0-30.0 [facility] Comment on above: Performed By: #### L IPID, CMP #### [facility] [address] [place] [address] Dr. Jamia Chin Creatinine [Mass/Vol] 0.91 mg/dL Normal 0.66-1.25 [facility] Comment on above: Performed By: #### L IPID, CMP #### [facility] [address] [place] [address] Dr. Jamia Chin EGFR-AF ANGOLAN >60 Normal >=60 [facility] Comment on above: Performed By: #### L IPID, CMP #### [facility] [address] [place] [address] Dr. Jamia Chin EGFR-NON AF ANGOLAN >60 Normal >=60 [facility] Comment on above: Performed By: #### L IPID, CMP #### [facility] [address] [address] [address] Jamia Chin Globulin (S) [Mass/Vol] 3.3 g/dL Normal [facility] Comment on above: Performed By: #### L IPID, CMP #### [facility] [address] [address] [address] Jamia Chin Glucose [Mass/Vol] 343 mg/dL Critically high 74-106 [facility] Comment on above: Performed By: #### L IPID, CMP #### [facility] [address] [place] [address] Dr. Jamia Chin Potassium [Moles/Vol] 4.3 mmol/L Normal 3.4-5.0 [facility] Comment on above: Performed By: #### L IPID, CMP #### [facility] [address] [place] [address] Dr. Jamia Chin Protein [Mass/Vol] 7.6 g/dL Normal 6.1-8.[address] [facility] Comment on above: Performed By: #### L IPID, CMP #### [facility] [address] [place] [address] Dr. Jamia Chin Sodium [Moles/Vol] 138 mmol/L Normal 137-145 [facility] Comment on above: Performed By: #### L IPID, CMP #### [facility] [address] [place] [address] Dr. Jamia Chin Urea nitrogen [Mass/Vol] 19.0 mg/dL Normal 9.0-20.0 [facility] Comment on above: Performed By: #### L IPID, CMP #### [facility] [address] [place] [address] Dr. Jamia Chin Urea nitrogen/Creatinine [Mass ratio] 20.9 mg/mg Normal [facility] Comment on above: Performed By: #### L IPID, CMP #### [facility] [address] [place] [address] Dr. Jamia Chin Vital Signs Date Time Vital Sign Value Performing Clinician Faci lity 02-01-2024 09:24-0400 Diastolic blood pressure 78 mm[Hg] Lynn Finnegan MD Work Phone: [facility] 02-01-2024 09:24-0400 Systolic blood pressure 140 mm[Hg] Lynn Finnegan MD Work Phone: [facility] 02-01-2024 09:20-0400 Body height 167.6 cm Lynn Finnegan MD Work Phone: [facility] 02-01-2024 09:20-0400 Body mass index (BMI) [Ratio] 23.92 kg/m2 Lynn Finnegan MD Work Phone: [facility] 02-01-2024 09:20-0400 Body weight 67.22 kg Lynn Finnegan MD Work Phone: [facility] 02-01-2024 09:20-0400 Heart rate 70 /min Lynn Finnegan MD Work Phone: [facility] 02-01-2024 09:20-0400 SaO2% (BldA) [Mass fraction] 98 % Lynn Finnegan MD Work Phone: [facility] Encounters Encounter Date Encounter Type Care Provider Facility Start: 02-01-2024 End: 02-01-2024 Telephone encounter Adele Piña CMA [facility] Start: 02-01-2024 End: 02-01-2024 Office outpatient new 45 minutes Lynn Finnegan MD Work Phone: [facility] Comment on above: Ischemia of both low er extremities (Primary Dx); Cigarette smoker; Claudication ([facility]) Start: 02-01-2024 End: 02-01-2024 ambulatory [facility] Comment on above: Ischemia of both low er extremities (Primary Dx) Start: 01-31-2024 ambulatory [facility] Start: 01-18-2022 End: 01-18-[address] MYRNA MULTANI Facility:[facility] Start: 12-31-2021 End: 01-01-[address] MYRNA MULTANI Facility:[facility] Start: 10-08-2021 End: 10-09-[address] MYRNA MULTANI Facility:[facility] Procedures Date Procedure Procedure Detail Performing Clinician Start: 10-08-[address] WILLIAM MULTANI Comment on above: Performed By: #### P [facility] #### [facility] [address] [place], [place] [address] Dr. Jamia Chin Plan of Treatment Date Care Activity Detail Author Start: 02-13-2025 End: 02-13-2025 Patient encounter procedure 02/13/2025 8:30 AM EDT [facility] [address] [place] [phone] Lynn Finnegan MD [address], [place] [address] [facility] Start: 01-31-2025 Adult BMI Screening Adult BMI Screen ing [facility] Start: 01-31-2025 Tobacco Screening Tobacco Screening [facility] Start: 01-12-2025 End: 02-11-2025 US.doppler Extremity arteries - bilateral for physiologic artery study Vas art doppler lwr bilat mult lev/PVR Vascular Ultrasound Routine Ischemia of both lower extremities Expected: 01/12/2025, Expires: 02[facility]11[facility]25 [facility] Comment on above: Expected: 01/12/2025 , Expires: 02/11/2025 Start: 04-14-2024 Influenza vaccination Influenza Vacc ine [facility] Start: 2012 Administration of varicella zoster vaccine Zoster (Shingles) Vaccine (1 of 2) [facility] Start: 1981 DTaP,Tdap and Td Vac cines (1 - Tdap) DTaP,Tdap and Td Vaccines (1 - Tdap) [facility] Start: 1974 Depression Screening Depression Scre ening [facility] Start: 1962 Tobacco Counseling Tobacco Counselin g [facility] Payers Date Payer Category [place] [id number] 2019-Present [phone] [address] [place] [address] [id number] 1962 Unknown [id number] 1962 Unknown [id number] 1962 Unknown [id number] 1962 Unknown [id number] 1962 Unknown [id number] 1957 Medicaid [id number] 1957 Medicare [id number] Social History Date Type Detail Facility [facility]: [facility]14-[facility] Start: 08-14-1971 History of tobacco use Cigarette Smo ker [facility] Start: 01-21-2019 End: 02-01-2024 Cigarettes smoked current (pack per day) - Reported 0.5 [facility] Start: 02-01-2024 Tobacco use and exposure User of smokeless tobacco [facility] Start: 02-01-2024 Alcoholic beverage intake Defer [facility] Start: 01-21-2019 End: 02-01-2024 Tobacco use panel [facility] Childcare Unknown [facility] Start: 1960 Sex assigned at Not on file P [facility] Clinical Notes 12-31-2021 to 02-01-2024 Telephone Encounter - Adele Piña [facility] - 02/01/2024 9:58 AM EDTTelephone Encounter - Adele Piña [facility] - 02/01/2024 9:58 AM Fabiola Finnegan MD - 02/01/2024 9:20 AM EDTPatient Instructions Note Date & Type Note Facility 02-01-2024 Miscellaneous Notes A user error has taken place: encounter opened in error, closed for administrative reasons. documented in this encounter [facility] 02-01-2024 Telephone encounter Note A user error has taken place: encounter opened in error, closed for administrative reasons. [facility] 02-01-2024 Evaluation + Plan note Associated Problem(s): Claudication ([facility]) Smoking cessation, ASA,Crestor, walking program PVR and follow up in a year [facility] 02-01-2024 Evaluation + Plan note Associated Problem(s): Cigarette smoker Counselled for smoking cessation in length, at least 4 min. [facility] 02-01-2024 Miscellaneous Notes Associated Problem(s): Claudication ([facility]-HCC) Smoking cessation, ASA,Crestor, walking program PVR and follow up in a year Associated Problem(s): Cigarette smoker Counselled for smoking cessation in length, at least 4 min. documented in this encounter [facility] 02-01-2024 History of Presen t illness Narrative [...] in length, at least 4 min. Claudication ([facility]) Current Assessment & Plan Smoking cessation, ASA,Crestor, walking program PVR and follow up in a year Lionel was seen today for leg pain and cold feet. Diagnoses and all orders for this visit: Ischemia of both lower extremities - [facility] [place] [place] Cigarette smoker Claudication ([facility]) Lynn Finnegan MD, SKYLER, RPVI, FSVS, FACS [facility] This note was created with the assistance of a speech recognition program. While intending to generate a timely document that accurately reflects the content of the visit, no guarantee can be provided that every grammatical or spelling mistake has been or will be identified or corrected. Thank you for your understanding. documented in this encounter [facility] 02-01-2024 Instructions Lynn Finnegan MD - 02/01/2024 9:20 AM EDT Are You Ready To Kick The Habit? Free Tobacco Cessation Resources [facility] Services [facility] Tobacco Treatment Centers provide all employees with free tobacco cessation services that include: Counseling to understand nicotine addiction Education about medications that can help you successfully quit Assistance with developing a plan to quit Call to set up an individual appointment or find out when group classes will be held: [facility]: [phone] [facility]: [phone] [facility]: [phone] [facility]: [phone] Quit Smoking Action Plan and Resources [facility] offers an eight-week, online smoking cessation plan to all [facility] employees, regardless of whether [employer] is your medical insurance provider. Go to [email or web address] ness and click the Health Risk Assessment and Resources link to get started. In the [employer] menu, click Action Plans instead of Health Risk Assessment to access the Quit Smoking Action Plan. Additional smoking cessation resources are also available to all [facility] employees on the [employer] web page at www.SpaceList/quit smoking. [employer] Tobacco Cessation Program If [employer] is your medical insurance provider, there are more free resources available to you, including: No copays or deductibles on local tobacco cessation counseling services to help you quit Prescription assistance for tobacco cessation medications to help you quit For details about the tobacco cessation program available to [employer] members, go to www.SpaceList (Search: Tobacco Cessation Program). [place] Tobacco Quit Line 2-812-SEUQ-NOW ( ) is a toll-free, telephonic service that helps [place] residents quit smoking and using tobacco. It is staffed by experts who tailor a quit plan for you and provide you with advice. [place] Tobacco Quit Line 8-313-JRYR-NOW ( ) is a toll-free, telephonic service that helps [place] residents quit smoking and using tobacco. It is staffed by experts who tailor a quit plan for you and provide you with advice. Two weeks of nicotine replacement therapy may be provided at no charge, if needed. Additional Resources These national organizations also offer free information and resources to help you quit tobacco: [place] [employer]--www.cancer.org/healthy/ stayawayfromtobacco [place] [employer]--www.heart.org (Search: Quit Smoking) Centers for Disease Control and Prevention--www.cdc.gov/tobacco [place] [employer]--www.lungusa.org documented in this encounter [employer] 12-31-2021 Note PROCEDURE: XR SHOULD ER RT [...] by: LESLIE MCGOVERN Date: 2021-12-31 16:19 [facility] Evaluation note Diagnosis Ischemia of both lower extremities- Primary documented in this encounter [facility] Diagnosis Ischemia of both lower extremities- Primary Cigarette smoker Tobacco use disorder Claudication ([facility]) Unspecified peripheral vascular disease documented in this encounter [facility] Interactive SystemInstructionsNot on filedocumented in this encounter [facility] System[facility]ructionsNot on filedocumented in this encounter [facility] Summary Purpose Family History No Family History Records FoundNo Family History Records Found Advance Directives No Advanced Directives Records FoundNo Advanced Directives Records Found Reason for Referral Specialty Diagnoses / Procedures Referred By Contac t Referred To Contact Diagnoses Ischemia of both lower extremities Procedures Vas art doppler lwr bilat mult lev/PVR Lynn Finnegan MD [address], [address] [address] Referral ID Status Reason Start Date Expiration Date V isits Requested Visits Authorized [id number] Pending Review 02/01/2024 01/31/2025 1 1 Additional Source Comments (unrecognized sect ion and content) No Status Records FoundNo Status Records Found INFORMATION SOURCE (unrecogn ized section and content) DATE CREATED AUTHOR 01/20/2022 [facility] DATE CREATED AUTHOR AUTHOR'S ORGANIZ ATION [...] lower extremities Myrna Multani MD [address] [place] [address] Lynn Finnegan MD [address], [address] [address] Referral ID Status Reason Start Date Expiration Date Visits Requested Visits Authorized [id number] Pending Review Specialty Services Required 01/30/2024 01/29/2025 [...] BE BASED ON THE PRIMARY CLINICAL RECORDS. [facility]. provides no warranty or guarantee of the accuracy or completeness of information in this document.
[2024-12-26 11:26] LABS: Estimated GFR (African America >60 (>=60 mL/min/1.73m^2); Estimated GFR (Non-African Ame >60 (>=60 mL/min/1.73m^2)
== END 2024-12-26 11:08 | disposition home or self-care (01) ==
LOC: LAB 11:07
PROVIDERS: PCP Family Medicine; Visit Provider Family Medicine
DX: N20.0 Calculus of kidney (principal); K92.2 Gastrointestinal hemorrhage, unspecified; R10.9 Unspecified abdominal pain; M51.369 Other intervertebral disc degeneration, lumbar region without mention of lumbar back pain or lower extremity pain
CPT/HCPCS: 36415; 74178; 82565; Q9967

== ENCOUNTER 2024-12-27 08:51 | Outpatient (OUT) | payer MEDICARE, MEDICAID, SELFPAY ==
--- NOTE | 2024-12-27 08:57 | XR_ITS ---
The [address] [address] Patient Name: MARINO GARCES MRN: [id number] date: 1960 Sex: M Assigned Patient Location: [facility] Current Patient Location: [facility] Accession/Order Number: [id number] Exam Date: 12/27/2024 10:36 Report Date: 12/27/2024 10:40 At the request of: MYRNA NAVARRO MD Procedure: XR lumbar spine 2-3V XR lumbar spine 2-3V 12/27/2024 9:08 AM SIGNS AND SYMPTOMS: Acute low back pain radiating into right hip and left leg numbness 3 weeks PROTOCOLS: Frontal and lateral radiographs of the lumbar spine COMPARISON: 12/26/2024 FINDINGS: The alignment, development and bony structures are normal. There is no fracture or destructive lesion. There is mild disc height loss at L4-5 and L5-S1. There is facet hypertrophy predominantly at these levels. Mild degenerative changes are noted in the sacroiliac joints. Atherosclerotic changes are present in the abdominal aorta. XR/XR lumbar spine 2-3V IMPRESSION: Degenerative changes are noted in the lumbar spine, greatest at L4-5 and L5-S1 similar to that seen on the previous abdomen and pelvis CT. If there is ongoing clinical concern for spinal canal or neural foraminal stenosis this would be better demonstrated on MRI. Impression dictated by: Cirilo Chester M.D. 12/27/2024 10:40 AM Dictation [facility] Electronically authenticated by: [id number] Y Date: 12/27/2024 10:40
--- OUTSIDE RECORDS SUMMARY | 2024-12-27 09:09 | XMS_ITS | CCD ---
Author Organization [facility] Care Team Providers Care Final Assembly Inspector Name Role Phone DR MYRNA MULTANI Consulting [...] RIMETHOPRIM] Drug Allergy 10-10-19 11 [facility] (1 source) Penicillin Drug Allergy [facility] (3 sources) Penicillins Propensity to adverse reactions to drug 02-01-20 24 [facility] (3 sources) Sulfamethoxazole / Trimethoprim Drug Allergy 10-10-19 11 Other (See Comments) [facility] Medications Current Medications Medication [...] disease (10 sources) Atherosclerotic heart disease of [place] coronary artery without angina pectoris; Translations: [Coronary [...] by: KASSIE MANNING Date: 2022-01-18 18:25 Normal [facility] XR ARTHRO SHLD RTon 01-19-20 22 [...] KASSIE MANNING Date: 2022-01-18 15:04 Normal [facility] XR FOREIGN BODY EYEon 2021 XR [...] KASSIE MANNING Date: 2022-01-18 13:55 Normal [facility] XR CSPINE MIN 4 VIEWSon 12-13 [...] LESLIE MCGOVERN Date: 2021-12-31 16:24 Normal [facility] CBC AUTO DIFFon 10-08-2021 BASO # 0.0 103/ul Normal 0.0-0.1 [facility] Comment on above: Performed By: #### C #### [facility] [address] [place] [address] Dr. Jamia Chin Basophils/100 WBC (Bld) 0.4 % Normal 0.2-2.0 [facility] Comment on above: Performed By: #### C BC #### [facility] [address] [place] [address] Dr. Jamia Chin EO # 0.2 103/ul Normal 0.0-0.7 [facility] Comment on above: Performed By: #### C BC #### [facility] [address] [place] [address] Dr. Jamia Chin Eosinophils/100 WBC (Bld) 2.1 % Normal 0.9-7.0 [facility] Comment on above: Performed By: #### C BC #### [facility] [address] [place] [address] Dr. Jamia Chin Erythrocyte distribution width (RBC) [Ratio] 13.2 % Normal 11.0-15.0 [facility] Comment on above: Performed By: #### C BC #### [facility] [address] [place] [address] Dr. Jamia Chin Hematocrit (Bld) [Volume fraction] 48.3 % Normal 42.0-54.0 [facility] Comment on above: Performed By: #### C BC #### [facility] [address] [place] [address] Dr. Jamia Chin Hemoglobin (Bld) [Mass/Vol] 16.9 g/dL Normal 14.0-18.0 [facility] Comment on above: Performed By: #### C BC #### [facility] [address] [place] [address] Dr. Jamia Chni IG # 0.03 10e3/ul Normal 0.00-0.03 [facility] Comment on above: Performed By: #### C BC #### [facility] [address] [place] [address] Dr. Jamia Chin IG % 0.3 % Normal 0.0-0.5 [facility] Comment on above: Performed By: #### C BC #### [facility] [address] [address] [address] Jamia Chin LYMPH # 2.0 103/ul Normal 1.2-3.8 [facility] Comment on above: Performed By: #### C BC #### [facility] [address] [place] [address] Dr. Jamia Chin Lymphocytes/100 WBC (Bld) 22.5 % Normal 20.5-60.0 [facility] Comment on above: Performed By: #### C BC #### [facility] [address] [place] [address] Dr. Jamia Chin MANUAL DIFF REQ NO Normal [facility] Comment on above: Performed By: #### C BC #### [facility] [address] [place] [address] Dr. Jamia Chin MCH (RBC) [Entitic mass] 30.7 pg Normal 25.9-34.0 [facility] Comment on above: Performed By: #### C BC #### [facility] [address] [place] [address] Dr. Jamia Chin MCHC (RBC) [Mass/Vol] 35.0 g/dL Normal 29.9-35.2 [facility] Comment on above: Performed By: #### C BC #### [facility] [address] [place] [address] Dr. Jamia Chin MCV (RBC) [Entitic vol] 87.7 fL Normal 80.0-94.0 [facility] Comment on above: Performed By: #### C BC #### [facility] [address] [place] [address] Dr. Jamia Chin MONO # 0.6 103/ul Normal 0.3-0.8 [facility] Comment on above: Performed By: #### C BC #### [facility] [address] [place] [address] Dr. Jamia Chin Monocytes/100 WBC (Bld) 6.7 % Normal 1.7-12.0 [facility] Comment on above: Performed By: #### C BC #### [facility] [address] [place], [place] [id number] Dr. Jamia Chin NEUT # 6.2 103/ul Normal 1.4-6.5 [facility] Comment on above: Performed By: #### C BC #### [facility] [address] [place] [address] Dr. Jamia Chin Neutrophils/100 WBC (Bld) 68.0 % Normal 43.0-75.0 [facility] Comment on above: Performed By: #### C BC #### [facility] [address] [place] [address] Dr. Jamia Chin Platelet mean volume (Bld) [Entitic vol] 9.0 fL Critically low 9.5-13.5 [facility] Comment on above: Performed By: #### C BC #### [facility] [address] [place] [address] Dr. Jamia Chin PLT 209 103/ul Normal 150-450 [facility] Comment on above: Performed By: #### C BC #### [facility] [address] [place] [address] Dr. Jamia Chin RBC 5.51 106/ul Normal 4.70-6.10 [facility] Comment on above: Performed By: #### C BC #### [facility] [address] [place] [address] Dr. Jamia Chin WBC 9.1 103/ul Normal 4.0-11.0 [facility] Comment on above: Performed By: #### C BC #### [facility] [address] [place] [address] Dr. Jamia Chin GLYCOHEMOGLOBIN A1Con 2021 ADA RECOMMENDATION ADA THERAPEUTIC TARG ET 6.0 - 7.0 ACTION SUGGESTED > 7.0 Normal [facility] Comment on above: Performed By: #### A 1C #### [facility] [address] [place] [address] Dr. Jamia Chin Glucose [Mass/Vol] 226 mg/dL Normal [facility] Comment on above: Performed By: #### A 1C #### [facility] [address] [place] [address] Dr. Jamia Chin HbA1c (Bld) [Mass fraction] 9.5 % Critically high <=6.0 [facility] Comment on above: Performed By: #### A 1C #### [facility] [address] [address] [address] Jamia Chin LIPID PROFILEon 10-08-2021 CHOL-HDL RATIO NORM SEE BELOW Normal [facility] Comment on above: Result Comment: 3.3 - 4.4 LOW RISK 4.4 - 7.1 AVERAGE RISK 7.1 - 11.0 MODERATE RISK >11.0 HIGH RISK Performed By: #### L IPID, CMP #### [facility] [address] [address] [address] Jamia Chin Cholesterol [Mass/Vol] 167 mg/dL Normal <=200 [facility] Comment on above: Performed By: #### L IPID, CMP #### [facility] [address] [address] [address] Jamia Chin Cholesterol in HDL [Mass/Vol] 31 mg/dL Normal [facility] Comment on above: Performed By: #### L IPID, CMP #### [facility] [address] [address] [address] Jamia Chin Cholesterol in LDL [Mass/Vol] 93.6 mg/dL Normal [facility] Comment on above: Performed By: #### L IPID, CMP #### [facility] [address] [address] [address] Jamia Chin Cholesterol.total/Ch olesterol in HDL [Mass ratio] 5.4 {ratio} Normal [facility] Comment on above: Performed By: #### L IPID, CMP #### [facility] [address] [address] [address] Jamia Chin HDL NORMAL > or = 60 mg/dl - LO W CARDIOVASCULAR RISK <40 mg/dl - HIGH CARDIOVASCULAR RISK Normal [facility] Comment on above: Performed By: #### L IPID, CMP #### [facility] [address] [address] [address] Jamia Chin LDL CALC NORMAL SEE BELOW Normal [facility] Comment on above: Result Comment: <100 mg/dl OPTIMAL 100 - 129 mg/dl NEAR OR ABOVE OPTIMAL 130 - 159 mg/dl BORDERLINE HIGH 160 - 189 mg/dl HIGH >190 mg/dl VERY HIGH Performed By: #### L IPID, CMP #### [facility] [address] [place] [address] Dr. Jamia Chin Triglyceride [Mass/Vol] 212 mg/dL Critically high <=150 [facility] Comment on above: Performed By: #### L IPID, CMP #### [facility] [address] [place] [address] Dr. Jamia Chin VLDL CALC 42.4 mg/dL Normal [facility] Comment on above: Performed By: #### L IPID, CMP #### [facility] [address] [place] [address] Dr. Jamia Chin PROF 14(COMP METB)on 022 Albumin [Mass/Vol] 4.3 g/dL Normal 3.5-5.0 [facility] Comment on above: Performed By: #### L IPID, CMP #### [facility] [address] [place] [address] Dr. Jamia Chin Albumin/Globulin [Mass ratio] 1.3 {ratio} Normal [facility] Comment on above: Performed By: #### L IPID, CMP #### [facility] [address] [place] [address] Dr. Jamia Chin ALP [Catalytic activity/Vol] 155 U/L Critically high 38-126 [facility] Comment on above: Performed By: #### L IPID, CMP #### [facility] [address] [place] [address] Dr. Jamia Chin ALT [Catalytic activity/Vol] 76 U/L Critically high 21-72 [facility] Comment on above: Performed By: #### L IPID, CMP #### [facility] [address] [place] [address] Dr. Jamia Chin Anion gap [Moles/Vol] 12.2 mmol/L Normal [facility] Comment on above: Performed By: #### L IPID, CMP #### [facility] [address] [address] [address] Jamia Chin AST [Catalytic activity/Vol] 16 U/L Critically low 17-59 [facility] Comment on above: Performed By: #### L IPID, CMP #### [facility] [address] [place] [address] Dr. Jamia Chin Bilirubin [Mass/Vol] 0.6 mg/dL Normal 0.2-1.3 [facility] Comment on above: Performed By: #### L IPID, CMP #### [facility] [address] [place] [address] Dr. Jamia Chin Calcium [Mass/Vol] 9.2 mg/dL Normal 8.4-10.2 [facility] Comment on above: Performed By: #### L IPID, CMP #### [facility] [address] [place] [address] Dr. Jamia Chin Chloride [Moles/Vol] 103 mmol/L Normal 98-107 [facility] Comment on above: Performed By: #### L IPID, CMP #### [facility] [address] [place] [address] Dr. Jamia Chin CO2 [Moles/Vol] 27.1 mmol/L Normal 22.0-30.0 [facility] Comment on above: Performed By: #### L IPID, CMP #### [facility] [address] [place] [address] Dr. Jamia Chin Creatinine [Mass/Vol] 0.91 mg/dL Normal 0.66-1.25 [facility] Comment on above: Performed By: #### L IPID, CMP #### [facility] [address] [place] [address] Dr. Jamia Chin EGFR-AF CYMRO >60 Normal >=60 [facility] Comment on above: Performed By: #### L IPID, CMP #### [facility] [address] [place] [address] Dr. Jamia Chin EGFR-NON AF CYMRO >60 Normal >=60 [facility] Comment on above: Performed By: #### L IPID, CMP #### [facility] [address] [address] [address] Jamia Chin Globulin (S) [Mass/Vol] 3.3 g/dL Normal [facility] Comment on above: Performed By: #### L IPID, CMP #### [facility] [address] [address] [address] Jamia Chin Glucose [Mass/Vol] 343 mg/dL Critically high 74-106 [facility] Comment on above: Performed By: #### L IPID, CMP #### [facility] [address] [place] [address] Dr. Jamia Chin Potassium [Moles/Vol] 4.3 mmol/L Normal 3.4-5.0 [facility] Comment on above: Performed By: #### L IPID, CMP #### [facility] [address] [place] [address] Dr. Jamia Chin Protein [Mass/Vol] 7.6 g/dL Normal 6.1-8.2 [facility] Comment on above: Performed By: #### L IPID, CMP #### [facility] [address] [place] [address] Dr. Jamia Chin Sodium [Moles/Vol] 138 mmol/L Normal 137-145 [facility] Comment on above: Performed By: #### L IPID, CMP #### [facility] [address] [place] [address] Dr. Jamia Chin Urea nitrogen [Mass/Vol] 19.0 mg/dL Normal 9.0-20.0 [facility] Comment on above: Performed By: #### L IPID, CMP #### [facility] [address] [place] [address] Dr. Jamia Chin Urea nitrogen/Creatinine [Mass ratio] 20.9 mg/mg Normal [facility] Comment on above: Performed By: #### L IPID, CMP #### [facility] [address] [place] [address] Dr. Jamia Chin Vital Signs Date Time Vital Sign Value Performing Clinician Faci lity 02-01-2024 09:24-0400 Diastolic blood pressure 78 mm[Hg] Lynn Finnegan MD Work Phone: [facility] 02-01-2024 09:24-0400 Systolic blood pressure 140 mm[Hg] Lynn Finnegan MD Work Phone: [facility] 02-01-2024 09:20-0400 Body height 167.6 cm Lynn Finnegan MD Work Phone: [facility] 02-01-2024 09:20-0400 Body mass index (BMI) [Ratio] 23.92 kg/m2 Lynn Finnegna MD Work Phone: [facility] 02-01-2024 09:20-0400 Body weight 67.22 kg Lynn Finnegan MD Work Phone: [facility] 02-01-2024 09:20-0400 Heart rate 70 /min Lynn Finnegan MD Work Phone: [facility] 02-01-2024 09:20-0400 SaO2% (BldA) [Mass fraction] 98 % Lynn Finnegan MD Work Phone: [facility] Encounters Encounter Date Encounter Type Care Provider Facility Start: 02-01-2024 End: 02-01-2024 Telephone encounter Adele Piña CMA [facility] Start: 02-01-2024 End: 02-01-2024 Office outpatient new 45 minutes Lynn Finnegan MD Work Phone: [facility] Comment on above: Ischemia of both low er extremities (Primary Dx); Cigarette smoker; Claudication ([facility]) Start: 02-01-2024 End: 02-01-[address] [facility] Comment on above: Ischemia of both low er extremities (Primary Dx) Start: 01-31-2024 ambulatory [facility] Start: 01-18-2022 End: 01-18-[address] MYRNA MULTANI Facility:[facility] Start: 12-31-2021 End: 01-01-[address] MYRNA MULTANI Facility:[facility] Start: 10-08-2021 End: 10-09-[address] MYRNA MULTANI Facility:[facility] Procedures Date Procedure Procedure Detail Performing Clinician Start: 10-08-[address] WILLIAM MULTANI Comment on above: Performed By: #### [facility] #### [facility] [address] [place], [place] [address] Dr. Jamia Chin Plan of Treatment Date Care Activity Detail Author Start: 02-13-2025 End: 02-13-2025 Patient encounter procedure 02/13/2025 8:30 AM EDT [facility] [address] [place] [id number] Lynn Finnegan MD [address], [place] [address] [facility] Start: 01-31-2025 Adult BMI Screening Adult BMI Screen ing [facility] Start: 01-31-2025 Tobacco Screening Tobacco Screening [facility] Start: 01-12-2025 End: 02-11-2025 US.doppler Extremity arteries - bilateral for physiologic artery study Vas art doppler lwr bilat mult lev/PVR Vascular Ultrasound Routine Ischemia of both lower extremities Expected: 01/12/2025, Expires: 02/11/2025 [facility] Comment on above: Expected: 01/12/2025 , Expires: 02/11/2025 Start: 04-14-2024 Influenza vaccination Influenza Vacc ine [facility] Start: 2012 Administration of varicella zoster vaccine Zoster (Shingles) Vaccine (1 of 2) [facility] Start: 1981 DTaP,Tdap and Td Vac cines (1 - Tdap) DTaP,Tdap and Td Vaccines (1 - Tdap) [facility] Start: 1974 Depression Screening Depression Scre ening [facility] Start: 1962 Tobacco Counseling Tobacco Counselin g [facility] Payers Date Payer Category [place] [id number] 2019-Present [phone] [address] [place] [address] [id number] 1962 Unknown [id number] 1962 Unknown [id number] 1962 Unknown [id number] 1962 Unknown [id number] 1962 Unknown [id number] 1957 Medicaid [id number] 1957 Medicare [id number] Social History Date Type Detail Facility Start: 08-14-1971 [facility] Start: 08-14-1971 History of tobacco use Cigarette Smo ker [facility] Start: 01-21-2019 End: 02-01-2024 Cigarettes smoked current (pack per day) - Reported 0.5 [facility] Start: 02-01-2024 Tobacco use and exposure User of smokeless tobacco [facility] Start: 02-01-2024 Alcoholic beverage intake [facility] Start: 01-21-2019 End: 02-01-2024 Tobacco use panel [facility] Childcare Unknown [facility] Start: 1960 Sex assigned at Not on file P [facility] Clinical Notes 12-31-2021 to 02-01-2024 Telephone Encounter - Adele Piña [facility] - 02/01/2024 9:58 AM EDTTelephone Encounter - Adele Piña [facility] - 02/01/2024 9:58 AM Fabiola Finnegan MD - 02/01/2024 9:20 AM EDTPatient Instructions Note Date & Type Note Facility 02-01-2024 Miscellaneous Notes A user error has taken place: encounter opened in error, closed for administrative reasons. documented in this encounter [facility] 02-01-2024 Telephone encounter Note A user error has taken place: encounter opened in error, closed for administrative reasons. [facility] 02-01-2024 Evaluation + Plan note Associated Problem(s): Claudication ([facility]) Smoking cessation, ASA,Crestor, walking program PVR and follow up in a year [facility] 02-01-2024 Evaluation + Plan note Associated Problem(s): Cigarette smoker Counselled for smoking cessation in length, at least 4 min. [facility] 02-01-2024 Miscellaneous Notes Associated Problem(s): Claudication ([facility]) Smoking cessation, ASA,Crestor, walking program PVR and follow up in a year Associated Problem(s): Cigarette smoker Counselled for smoking cessation in length, at least 4 min. documented in this encounter [facility] 02-01-2024 History of Presen [...] in length, at least 4 min. Claudication ([facility]) Current Assessment & Plan Smoking cessation, ASA,Crestor, walking program PVR and follow up in a year Lionel was seen today for leg pain and cold feet. Diagnoses and all orders for this visit: Ischemia of both lower extremities - [facility] [place] [place] Cigarette smoker Claudication ([facility]) Lynn Finnegan MD, SKYLER, RPVI, FSVS, FACS [facility] This note was created with the assistance of a speech recognition program. While intending to generate a timely document that accurately reflects the content of the visit, no guarantee can be provided that every grammatical or spelling mistake has been or will be identified or corrected. Thank you for your understanding. documented in this encounter [facility] 02-01-2024 Instructions Lynn Finnegan MD - 02/01/2024 9:20 AM EDT Are You Ready To Kick The Habit? Free Tobacco Cessation Resources [facility] Services [facility] Centers provide all employees with free tobacco cessation services that include: Counseling to understand nicotine addiction Education about medications that can help you successfully quit Assistance with developing a plan to quit Call to set up an individual appointment or find out when group classes will be held: [facility]: [phone] [facility]: [phone] [facility]: [phone] [facility]: [phone] Quit Smoking Action Plan and Resources [facility] offers an eight-week, online smoking cessation plan to all [facility] employees, regardless of whether [employer] is your medical insurance provider. Go to [email or web address].[email or web address]/[email or web address] ness and click the Health Risk Assessment and Resources link to get started. In the [employer]cd[employer]Et[employer] menu, click Action Plans instead of Health Risk Assessment to access the Quit Smoking Action Plan. Additional smoking cessation resources are also available to all [facility] employees on the [employer] web page at www.[employer]/quit smoking. [employer] Tobacco Cessation Program If [employer] is your medical insurance provider, there are more free resources available to you, including: No copays or deductibles on local tobacco cessation counseling services to help you quit Prescription assistance for tobacco cessation medications to help you quit For details about the tobacco cessation program available to [employer] members, go to www.[employer] (Search: Tobacco Cessation Program). [place] Tobacco Quit Line 6-194-FKWX-NOW ( ) is a toll-free, telephonic service that helps [place] residents quit smoking and using tobacco. It is staffed by experts who tailor a quit plan for you and provide you with advice. [place] Tobacco Quit Line 1-164-REWA-NOW ( ) is a toll-free, telephonic service that helps [place] residents quit smoking and using tobacco. It is staffed by experts who tailor a quit plan for you and provide you with advice. Two weeks of nicotine replacement therapy may be provided at no charge, if needed. Additional Resources These national organizations also offer free information and resources to help you quit tobacco: [place] [employer]--www.cancer.org/healthy/ stayawayfromtobacco [place] [employer]--www.heart.org (Search: Quit Smoking) Centers for Disease Control and Prevention--www.cdc.gov/tobacco [place] [employer]--www.lungusa.org documented in this encounter [facility] 12-31-2021 Note PROCEDURE: XR SHOULD ER RT [...] by: LESLIE MCGOVERN Date: 2021-12-31 16:19 [facility] Evaluation note Diagnosis Ischemia of both lower extremities- Primary documented [facility] this encounter [facility] Diagnosis Ischemia of both lower extremities- Primary Cigarette smoker Tobacco use disorder Claudication ([facility]) Unspecified peripheral vascular disease documented in this encounter [facility] System[facility]ructionsNot on filedocumented in this encounter [facility] on filedocumented in this encounter [facility] Summary Purpose Family History No Family History Records FoundNo Family History Records Found Advance Directives No Advanced Directives Records FoundNo Advanced Directives Records Found Reason for Referral Specialty Diagnoses / Procedures Referred By Contac t Referred To Contact Diagnoses Ischemia of both lower extremities Procedures Vas art doppler lwr bilat mult lev/PVR Lynn Finnegan MD [address], [address] [address] Referral ID Status Reason Start Date Expiration Date V isits Requested Visits Authorized [id number] Pending Review 02/01/2024 01/31/2025 1 1 Additional Source Comments (unrecognized sect ion and content) No Status Records FoundNo Status Records Found INFORMATION SOURCE (unrecogn ized section and content) DATE CREATED AUTHOR 01/20/2022 [facility] DATE CREATED AUTHOR AUTHOR'S ORGANIZ ATION [...] lower extremities Myrna Multani MD [address] [place] [address] Lynn Finnegan MD [address], [address] [address] Referral ID Status Reason Start Date Expiration Date Visits Requested Visits Authorized [id number] Pending Review Specialty Services Required 01/30/2024 01/29/2025 [...] BE BASED ON THE PRIMARY CLINICAL RECORDS. [facility]. provides no warranty or guarantee of the accuracy or completeness of information in this document.
== END 2024-12-27 08:52 | disposition home or self-care (01) ==
LOC: RAD 08:53
PROVIDERS: PCP Family Medicine; Visit Provider Family Medicine
DX: M54.50 Low back pain, unspecified (principal); M51.369 Other intervertebral disc degeneration, lumbar region without mention of lumbar back pain or lower extremity pain
CPT/HCPCS: 72100

== ENCOUNTER 2025-01-24 06:42 | Outpatient (OUT) | payer MEDICARE, MEDICAID, SELFPAY ==
--- OUTSIDE RECORDS SUMMARY | 2024-12-26 11:33 | XMS_ITS ---
Author Organization [facility] in [place] Address [address] [place] [address] Care Team Providers Care Strategic Buyer Name Role Phone Fernandez Multani Primary Care Provider [phone] results- Encounters Encounter Location Date Provider Diagnosis [facility] [address] [place] [address] 12/26/2024 Fernandez Multani Low back pain at multiple sites M54.50 Assessments Encounter Date Diagnosis (ICD Code) Assessment Notes Treatment Notes Treatment Clinical Notes Section Notes 12/26/2024 Low back pain at multiple sites (ICD-10 - M54.50) Plan Of Treatment Pending Test Test Name Order Date XR LSPINE 2_3 VIEWS 12/26/2024 Next Appt Details Provider Name:Fernandez Multani, 08:00:00 AM, [address] [place], [address], Progress Notes * Lionel LANDIN ADOB:[birth year] (64 yo M)Acc No.[id number]:12/26/2024 Patient: Reji KILPATRICKothy Sun :1960 A ge:64 Y S ex:Male Address:[address] [place] [address], [id number] Subjective: * Chief Complaints: * C T results- * Medical History: * Surgical History: * Hospitalization/Major Diagno stic Procedure: * Medications: Objective: * Vitals: * Physical Examination: Assessment: * Assessment: 1. L ow back pain at multiple sites - M54.50 (Primary) Plan: * Treatment: * Procedure Codes: * true * Date: Generated for Madan anne/Andrew/Elio on: 0 01/24/2025 06:44 AM EDT
--- OUTSIDE RECORDS SUMMARY | 2024-12-29 18:54 | XMS_ITS ---
Author Organization The [facility] in [place] Address [address] [place] [address] Care Team Providers Care Director Pediatric Name Role Phone Fernandez Multani Primary Care Provider Reason For Referral Diagnosis 1 Low back pain at [facility] (M54.50) Referral Organization [facility] Referring Provider First Name Fernandez Referring Provider Last Name Nerissa Referring Provider Speciality Family Med icine Referred Provider Damaris Jennings Referred Provider Specialty Orthopedic S urgery Referral Priority Routine REASON FOR VISIT x-ray Encounters Encounter Location Date Provider Diagnosis [facility] [address] [place] [address] 12/29/2024 Fernandez Multani Low back pain at multiple sites M54.50 Assessments Encounter Date Diagnosis (ICD Code) Assessment Notes Treatment Notes Treatment Clinical Notes Section Notes 12/29/2024 Low back pain at multiple sites (ICD-10 - M54.50) Plan Of Treatment Referrals Referral Date Details 12/30/2024 12/30/2024, Damaris Silverman Next Appt Details Provider Name:Fernandez Multani, 08:00:00 AM, [address] [place], [address], Progress Notes * Lionel LANDIN ADOB:[birth year] (64 yo M)Acc No.[id number]:12/29/2024 Patient: Fabian SANLionel :1960 A ge:64 Y S ex:Male Address:[address] [place] [address], [place], [address] Subjective: * Chief Complaints: * X -ray * Medical History: * Surgical History: * Hospitalization/Major Diagno stic Procedure: * Medications: Objective: * Vitals: * Physical Examination: Assessment: * Assessment: 1. L ow back pain at multiple sites - M54.50 (Primary) Plan: * Treatment: * Procedure Codes: * true * Date: Generated for Madan anne/Andrew/Korinaitting on: 0 01/24/2025 06:44 AM EDT Consultation Request Notes Referral Date Referring Provider Referred Provider Not es 12/30/2024 Fernandez Multani Selvon
--- OUTSIDE RECORDS SUMMARY | 2025-01-22 12:14 | XMS_ITS ---
Author Organization [facility] in [place] Address [address] [place] [address] Care Team Providers Care Tourist Agent Name Role Phone Fernandez Multani Primary Care Provider REASON FOR VISIT rf plavix and crestor Medications Medication SIG (Take, Route, Frequency, Duration) Notes Start Date End Date Status Rosuvastatin Calcium 5 MG TAKE 1 TABLET BY MOUTH EVERY DAY FOR 30 DAYS for 90 days Active Clopidogrel Bisulfate 75 MG TAKE 1 TABLE T BY MOUTH EVERY DAY for 90 Active Encounters Encounter Location Date Provider Diagnosis [facility] [address] [place] [address] 01/22/2025 Fernandez Multani Plan Of Treatment Medication Medication Name Sig Start Date Stop Date Notes Rosuvastatin Calcium 5 MG TAKE 1 TABLET BY MOUTH EVERY DAY FOR 30 DAYS for 90 days Clopidogrel Bisulfate 75 MG TAKE 1 TABLE T BY MOUTH EVERY DAY for 90 Next Appt Details Provider Name:Fernandez Multani, 08:00:00 AM, [address] [place], [address], Progress Notes * Lionel LANDIN ADOB:[birth year] (64 yo M)Acc No.[id number]:01/22/2025 Patient: Fabian SANLionel :1960 A ge:64 Y S ex:Male Address:[address] [place] [address], [place], [address] * Refills Refill Rosuvastatin Calcium Tablet, 5 MG, 90 Tablet, TAKE 1 TABLET BY MOUTH EVERY DAY FOR 30 DAYS, 90 days, Refills=3 Refill Clopidogrel Bisulfate Tablet, 75 MG, 90 Tablet, TAKE 1 TABLET BY MOUTH EVERY DAY, 90, Refills=3 * true * Date: Generated for Madan anne/Andrew/Elio on: 0 01/24/2025 06:44 AM EDT
--- NOTE | 2025-01-24 06:44 | MR_ITS ---
The [address] [address] Patient Name: MARINO GARCES MRN: [id number] date: 1960 Sex: M Assigned Patient Location: MRI Current Patient Location: MRI Accession/Order Number: [id number] Exam Date: 01/24/2025 08:37 Report Date: 01/24/2025 08:52 At the request of: SAY CALI MD Procedure: MR lumbar spine wo con MRI LUMBAR SPINE WITHOUT CONTRAST COMPARISON: Plain films 12/27/2024 CLINICAL DATA: Back pain with radiation to the right leg over the past month. No reported injury. Multiecho imaging in the axial and sagittal plane was performed without contrast. There is minimal retrolisthesis of L5 on S1. Alignment is otherwise maintained. There are no acute compression fractures or marrow edema. There is minor endplate spurring. No paraspinal soft tissue abnormalities are present. From T12-L1 through L2-3, the discs are normal in height and signal intensity. No disc bulge or herniation is visualized. No central or foraminal stenosis is seen. At L3-4, there is mild disco-osteophytic bulging toward the neural foramen. There is also minor facet and ligamentous hypertrophy with mild thecal sac effacement and slight inferior foraminal encroachment. At L4-5, there is mild disc desiccation. Annular disc bulging is visualized with increased signal at the annulus suggesting a tear. There is also a right parasagittal protrusion with cephalad extrusion of disc material. Mild facet and ligamentous hypertrophy is present. There is moderate central stenosis. There is impingement of the exiting L4 and traversing L5 nerve roots on the right. There is moderate foraminal narrowing bilaterally. At the lumbosacral junction, there is disc desiccation. There is annular disc bulging asymmetric from the right parasagittal region extending through the neural foramen. Bilateral facet hypertrophy is seen. There is minor thecal sac effacement and impingement of the traversing left S1 nerve root. Mild to moderate left and moderate to severe right foraminal encroachment is noted. 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 Impression dictated by: Nellie Montes M.D. 01/24/2025 8:52 AM Dictation Location: [place] [address] Electronically authenticated by: [id number] Y Date: 01/24/2025 08:52
--- OUTSIDE RECORDS SUMMARY | 2025-01-24 06:44 | XMS_ITS | CCD ---
Author Organization [facility] Care Team Providers Care Dog Bather Name Role Phone DR MYRNA MULTANI Consulting [...] 10-10-19 11 [facility] Repository (1 source) Penicillin Drug Allergy [facility] Repository (3 sources) Penicillins Propensity to adverse reactions to drug 02-01-20 24 [facility] (3 sources) Sulfamethoxazole / Trimethoprim Drug Allergy 10-10-19 11 Other (See Comments) [facility] Medications Current Medications Medication Drug [...] disease (10 sources) Atherosclerotic heart disease of [place] coronary artery without angina pectoris; Translations: [Coronary [...] by: KASSIE MANNING Date: 2022-01-18 18:25 Normal [facility] XR ARTHRO SHLD RTon 01-19-20 22 [...] KASSIE MANNING Date: 2022-01-18 15:04 Normal [facility] XR FOREIGN BODY EYEon 2021 XR [...] KASSIE MANNING Date: 2022-01-18 13:55 Normal [facility] XR CSPINE MIN 4 VIEWSon 12-13 [...] LESLIE MCGOVERN Date: 2021-12-31 16:24 Normal [facility] CBC AUTO DIFFon 10-08-2021 BASO # 0.0 103/ul Normal 0.0-0.1 [facility] Comment on above: Performed By: #### C #### [facility] [address] [place] [address] Dr. Jamia Chin Basophils/100 WBC (Bld) 0.4 % Normal 0.2-2.0 [facility] Comment on above: Performed By: #### C BC #### [facility] [address] [place] [address] Dr. Jamia Chin EO # 0.2 103/ul Normal 0.0-0.7 [facility] Comment on above: Performed By: #### C BC #### [facility] [address] [place] [address] Dr. Jamia Chin Eosinophils/100 WBC (Bld) 2.1 % Normal 0.9-7.0 [facility] Comment on above: Performed By: #### C BC #### [facility] [address] [place] [address] Dr. Jamia Chin Erythrocyte distribution width (RBC) [Ratio] 13.2 % Normal 11.0-15.0 [facility] Comment on above: Performed By: #### C BC #### [facility] [address] [place] [address] Dr. Jamia Chin Hematocrit (Bld) [Volume fraction] 48.3 % Normal 42.0-54.0 [facility] Comment on above: Performed By: #### C BC #### [facility] [address] [place] [address] Dr. Jamia Chin Hemoglobin (Bld) [Mass/Vol] 16.9 g/dL Normal 14.0-18.0 [facility] Comment on above: Performed By: #### C BC #### [facility] [address] [place] [address] Dr. Jamia Chin IG # 0.03 10e3/ul Normal 0.00-0.03 [facility] Comment on above: Performed By: #### C BC #### [facility] [address] [place] [address] Dr. Jamia Chin IG % 0.3 % Normal 0.0-0.5 [facility] Comment on above: Performed By: #### C BC #### [facility] [address] [address] [address] Jamia Chin LYMPH # 2.0 103/ul Normal 1.2-3.8 [facility] Comment on above: Performed By: #### C BC #### [facility] [address] [place] [address] Dr. Jamia Chin Lymphocytes/100 WBC (Bld) 22.5 % Normal 20.5-60.0 [facility] Comment on above: Performed By: #### C BC #### [facility] [address] [place] [address] Dr. Jamia Chin MANUAL DIFF REQ NO Normal [facility] Comment on above: Performed By: #### C BC #### [facility] [address] [place] [address] Dr. Jamia Chin MCH (RBC) [Entitic mass] 30.7 pg Normal 25.9-34.0 [facility] Comment on above: Performed By: #### C BC #### [facility] [address] [place] [address] Dr. Jamia Chin MCHC (RBC) [Mass/Vol] 35.0 g/dL Normal 29.9-35.2 [facility] Comment on above: Performed By: #### C BC #### [facility] [address] [place] [address] Dr. Jamia Chin MCV (RBC) [Entitic vol] 87.7 fL Normal 80.0-94.0 [facility] Comment on above: Performed By: #### C BC #### [facility] [address] [place] [address] Dr. Jamia Chin MONO # 0.6 103/ul Normal 0.3-0.8 [facility] Comment on above: Performed By: #### C BC #### [facility] [address] [place] [address] Dr. Jamia Chin Monocytes/100 WBC (Bld) 6.7 % Normal 1.7-12.0 [facility] Comment on above: Performed By: #### C BC #### [facility] [address] [place], [place] [id number] Dr. Jamia Chin NEUT # 6.2 103/ul Normal 1.4-6.5 [facility] Comment on above: Performed By: #### C BC #### [facility] [address] [place] [address] Dr. Jamia Chin Neutrophils/100 WBC (Bld) 68.0 % Normal 43.0-75.0 [facility] Comment on above: Performed By: #### C BC #### [facility] [address] [place] [address] Dr. Jamia Chin Platelet mean volume (Bld) [Entitic vol] 9.0 fL Critically low 9.5-13.5 [facility] Comment on above: Performed By: #### C BC #### [facility] [address] [place] [address] Dr. Jamia Chin PLT 209 103/ul Normal 150-450 [facility] Comment on above: Performed By: #### C BC #### [facility] [address] [place] [address] Dr. Jamia Chin RBC 5.51 106/ul Normal 4.70-6.10 [facility] Comment on above: Performed By: #### C BC #### [facility] [address] [place] [address] Dr. Jamia Chin WBC 9.1 103/ul Normal 4.0-11.0 [facility] Comment on above: Performed By: #### C BC #### [facility] [address] [place] [address] Dr. Jamia Chin GLYCOHEMOGLOBIN A1Con 2021 ADA RECOMMENDATION ADA THERAPEUTIC TARG ET 6.0 - 7.0 ACTION SUGGESTED > 7.0 Normal [facility] Comment on above: Performed By: #### A 1C #### [facility] [address] [place] [address] Dr. Jamia Chin Glucose [Mass/Vol] 226 mg/dL Normal [facility] Comment on above: Performed By: #### A 1C #### [facility] [address] [place] [address] Dr. Jamia Chin HbA1c (Bld) [Mass fraction] 9.5 % Critically high <=6.0 [facility] Comment on above: Performed By: #### A 1C #### [facility] [address] [address] [address] Jamia Chin LIPID PROFILEon 10-08-2021 CHOL-HDL RATIO NORM SEE BELOW Normal [facility] Comment on above: Result Comment: 3.3 - 4.4 LOW RISK 4.4 - 7.1 AVERAGE RISK 7.1 - 11.0 MODERATE RISK >11.0 HIGH RISK Performed By: #### L IPID, CMP #### [facility] [address] [address] [address] Jamia Chin Cholesterol [Mass/Vol] 167 mg/dL Normal <=200 [facility] Comment on above: Performed By: #### L IPID, CMP #### [facility] [address] [address] [address] Jamia Chin Cholesterol in HDL [Mass/Vol] 31 mg/dL Normal [facility] Comment on above: Performed By: #### L IPID, CMP #### [facility] [address] [address] [address] Jamia Chin Cholesterol in LDL [Mass/Vol] 93.6 mg/dL Normal [facility] Comment on above: Performed By: #### L IPID, CMP #### [facility] [address] [address] [address] Jamia Chin Cholesterol.total/Ch olesterol in HDL [Mass ratio] 5.4 {ratio} Normal [facility] Comment on above: Performed By: #### L IPID, CMP #### [facility] [address] [address] [address] Jamia Chin HDL NORMAL > or = 60 mg/dl - LO W CARDIOVASCULAR RISK <40 mg/dl - HIGH CARDIOVASCULAR RISK Normal [facility] Comment on above: Performed By: #### L IPID, CMP #### [facility] [address] [address] [address] Jamia Chin LDL CALC NORMAL SEE BELOW Normal [facility] Comment on above: Result Comment: <100 mg/dl OPTIMAL 100 - 129 mg/dl NEAR OR ABOVE OPTIMAL 130 - 159 mg/dl BORDERLINE HIGH 160 - 189 mg/dl HIGH >190 mg/dl VERY HIGH Performed By: #### L IPID, CMP #### [facility] [address] [place] [address] Dr. Jamia Chin Triglyceride [Mass/Vol] 212 mg/dL Critically high <=150 [facility] Comment on above: Performed By: #### L IPID, CMP #### [facility] [address] [place] [address] Dr. Jamia Chin VLDL CALC 42.4 mg/dL Normal [facility] Comment on above: Performed By: #### L IPID, CMP #### [facility] [address] [place] [address] Dr. Jamia Chin PROF 14(COMP METB)on 022 Albumin [Mass/Vol] 4.3 g/dL Normal 3.5-5.0 [facility] Comment on above: Performed By: #### L IPID, CMP #### [facility] [address] [place] [address] Dr. Jamia Chin Albumin/Globulin [Mass ratio] 1.3 {ratio} Normal [facility] Comment on above: Performed By: #### L IPID, CMP #### [facility] [address] [place] [address] Dr. Jamia Chin ALP [Catalytic activity/Vol] 155 U/L Critically high 38-126 [facility] Comment on above: Performed By: #### L IPID, CMP #### [facility] [address] [place] [address] Dr. Jamia Chin ALT [Catalytic activity/Vol] 76 U/L Critically high 21-72 [facility] Comment on above: Performed By: #### L IPID, CMP #### [facility] [address] [place] [address] Dr. Jamia Chin Anion gap [Moles/Vol] 12.2 mmol/L Normal [facility] Comment on above: Performed By: #### L IPID, CMP #### [facility] [address] [address] [address] Jamia Chin AST [Catalytic activity/Vol] 16 U/L Critically low 17-59 [facility] Comment on above: Performed By: #### L IPID, CMP #### [facility] [address] [place] [address] Dr. Jamia Chin Bilirubin [Mass/Vol] 0.6 mg/dL Normal 0.2-1.3 [facility] Comment on above: Performed By: #### L IPID, CMP #### [facility] [address] [place] [address] Dr. Jamia Chin Calcium [Mass/Vol] 9.2 mg/dL Normal 8.4-10.2 [facility] Comment on above: Performed By: #### L IPID, CMP #### [facility] [address] [place] [address] Dr. Jamia Chin Chloride [Moles/Vol] 103 mmol/L Normal 98-107 [facility] Comment on above: Performed By: #### L IPID, CMP #### [facility] [address] [place] [address] Dr. Jamia Chin CO2 [Moles/Vol] 27.1 mmol/L Normal 22.0-30.0 [facility] Comment on above: Performed By: #### L IPID, CMP #### [facility] [address] [place] [address] Dr. Jamia Chin Creatinine [Mass/Vol] 0.91 mg/dL Normal 0.66-1.25 [facility] Comment on above: Performed By: #### L IPID, CMP #### [facility] [address] [place] [address] Dr. Jamia Chin EGFR-AF CHINESE >60 Normal >=60 [facility] Comment on above: Performed By: #### L IPID, CMP #### [facility] [address] [place] [address] Dr. Jamia Chin EGFR-NON AF CHINESE >60 Normal >=60 [facility] Comment on above: Performed By: #### L IPID, CMP #### [facility] [address] [address] [address] Jamia Chin Globulin (S) [Mass/Vol] 3.3 g/dL Normal [facility] Comment on above: Performed By: #### L IPID, CMP #### [facility] [address] [address] [address] Jamia Chin Glucose [Mass/Vol] 343 mg/dL Critically high 74-106 T [facility] Comment on above: Performed By: #### L IPID, CMP #### [facility] [address] [place] [address] Dr. Jamia Chin Potassium [Moles/Vol] 4.3 mmol/L Normal 3.4-5.0 [facility] Comment on above: Performed By: #### L IPID, CMP #### [facility] [address] [place] [address] Dr. Jamia Chin Protein [Mass/Vol] 7.6 g/dL Normal 6.1-8.2 [facility] Comment on above: Performed By: #### L IPID, CMP #### [facility] [address] [place] [address] Dr. Jamia Chin Sodium [Moles/Vol] 138 mmol/L Normal 137-145 [facility] Comment on above: Performed By: #### L IPID, CMP #### [facility] [address] [place] [address] Dr. Jamia Chin Urea nitrogen [Mass/Vol] 19.0 mg/dL Normal 9.0-20.0 [facility] Comment on above: Performed By: #### L IPID, CMP #### [facility] [address] [place] [address] Dr. Jamia Chin Urea nitrogen/Creatinine [Mass ratio] 20.9 mg/mg Normal [facility] Comment on above: Performed By: #### L IPID, CMP #### [facility] [address] [place] [address] Dr. Jamia Chin Vital Signs Date Time Vital Sign Value Performing Clinician Faci lity 02-01-2024 09:24-0400 Diastolic blood pressure 78 mm[Hg] Lynn Finnegan MD Work Phone: [facility] 02-01-2024 09:24-0400 Systolic blood pressure 140 mm[Hg] Lynn Finnegan MD Work Phone: [facility] 02-01-2024 09:20-0400 Body height 167.6 cm Lynn Finnegan MD Work Phone: [facility] 02-01-2024 09:20-0400 Body mass index (BMI) [Ratio] 23.92 kg/m2 Lynn Finnegan MD Work Phone: [facility] 02-01-2024 09:20-0400 Body weight 67.22 kg Lynn Finnegan MD Work Phone: [facility] 02-01-2024 09:20-0400 Heart rate 70 /min Lynn Finnegan MD Work Phone: [facility] 02-01-2024 09:20-0400 SaO2% (BldA) [Mass fraction] 98 % Lynn Finnegan MD Work Phone: [facility] Encounters Encounter Date Encounter Type Care Provider Facility Start: 02-01-2024 End: 02-01-2024 Telephone encounter Adele Pñia CMA [facility] Start: 02-01-2024 End: 02-01-2024 Office outpatient new 45 minutes Lynn Finnegan MD Work Phone: [facility] Comment on above: Ischemia of both low er extremities (Primary Dx); Cigarette smoker; Claudication ([facility]) Start: 02-01-2024 End: 02-01-2024 ambulatory [facility] Comment on above: Ischemia of both low er extremities (Primary Dx) Start: 01-31-2024 ambulatory [facility] Start: 01-18-2022 End: 01-18-[address] MYRNA MULTANI Facility:[facility] Start: 12-31-2021 End: 01-01-[address] MYRNA MULTANI Facility:[facility] Start: 10-08-2021 End: 10-09-[address] MYRNA MULTANI Facility:[facility] Procedures Date Procedure Procedure Detail Performing Clinician Start: 10-08-[address] WILLIAM MULTANI Comment on above: Performed By: #### P [facility] #### [facility] [address] [place], [place] [address] Dr. Jamia Chin Plan of Treatment Date Care Activity Detail Author Start: 02-13-2025 End: 02-13-2025 Patient encounter procedure 02/13/2025 8:30 AM EDT [facility] [address] [place] [id number] Lynn Finnegan MD [address], [place] [address] [facility] Start: 01-31-2025 Adult BMI Screening Adult BMI Screen ing [facility] Start: 01-31-2025 Tobacco Screening Tobacco Screening [facility] Start: 01-12-2025 End: 02-11-2025 US.doppler Extremity arteries - bilateral for physiologic artery study Vas art doppler lwr bilat mult lev/PVR Vascular Ultrasound Routine Ischemia of both lower extremities Expected: 01/12/2025, Expires: 02/11/2025 [facility] Work Phone: Comment on above: Expected: 01/12/2025 , Expires: 02/11/2025 Start: 04-14-2024 Influenza vaccination Influenza Vacc ine [facility] Start: 2012 Administration of varicella zoster vaccine Zoster (Shingles) Vaccine (1 of 2) [facility] Start: 1981 DTaP,Tdap and Td Vac cines (1 - Tdap) DTaP,Tdap and Td Vaccines (1 - Tdap) [facility] Start: 1974 Depression Screening Depression Scre ening [facility] Start: 1960 Tobacco Counseling Tobacco Counselin g [facility] Payers Date Payer Category [place] [id number] 2019-Present [phone] [address] [place] [address] [id number] 1962 Unknown [id number] 1962 Unknown [id number] 1962 Unknown [id number] 1962 Unknown [id number] 1962 Unknown [id number] 1959 Medicaid [id number] 1957 Medicare [id number] Social History Date Type Detail Facility [facility]: [facility]14-[facility] Start: 08-14-1971 History of tobacco use Cigarette Smo ker [facility] Start: 01-21-2019 End: 02-01-2024 Cigarettes smoked current (pack per day) - Reported 0.5 [facility] Start: 02-01-2024 Tobacco use and exposure User of smokeless tobacco [facility] Start: 02-01-2024 Alcoholic beverage intake Defer [facility] Start: 01-21-2019 End: 02-01-2024 Tobacco use panel [facility] Childcare Unknown [facility] Start: 1960 Sex assigned at Not on file P [facility] Clinical Notes 12-31-2021 to 02-01-2024 Telephone Encounter - Adele Piña [facility] - 02/01/2024 9:58 AM EDTTelephone Encounter - Adele Piña [facility] - 02/01/2024 9:58 AM Fabiola Finnegan MD - 02/01/2024 9:20 AM EDTPatient Instructions Note Date & Type Note Facility 02-01-2024 Miscellaneous Notes A user error has taken place: encounter opened in error, closed for administrative reasons. documented in this encounter [facility] 02-01-2024 Telephone encounter Note A user error has taken place: encounter opened in error, closed for administrative reasons. [facility] 02-01-2024 Evaluation + Plan note Associated Problem(s): Claudication ([facility]) Smoking cessation, ASA,Crestor, walking program PVR and follow up in a year [facility] 02-01-2024 Evaluation + Plan note Associated Problem(s): Cigarette smoker Counselled for smoking cessation in length, at least 4 min. [facility] 02-01-2024 Miscellaneous Notes Associated Problem(s): Claudication ([facility]-H[facility]) Smoking cessation, ASA,Crestor, walking program PVR and follow up in a year Associated Problem(s): Cigarette smoker Counselled for smoking cessation in length, at least 4 min. documented in this encounter [facility] 02-01-2024 History of Presen t [...] in length, at least 4 min. Claudication ([facility]) Current Assessment & Plan Smoking cessation, ASA,Crestor, walking program PVR and follow up in a year Lionel was seen today for leg pain and cold feet. Diagnoses and all orders for this visit: Ischemia of both lower extremities - [facility] [place] Cigarette smoker Claudication ([facility]) Lynn Finnegan MD, SKYLER, RPVI, FSVS, FACS [facility] This note was created with the assistance of a speech recognition program. While intending to generate a timely document that accurately reflects the content of the visit, no guarantee can be provided that every grammatical or spelling mistake has been or will be identified or corrected. Thank you for your understanding. documented in this encounter [facility] 02-01-2024 Instructions Lynn Finnegan MD - 02/01/2024 9:20 AM EDT Are You Ready To Kick The Habit? Free Tobacco Cessation Resources [facility] Tobacco Treatment Center Services [facility] Tobacco Treatment Centers provide all employees with free tobacco cessation services that include: Counseling to understand nicotine addiction Education about medications that can help you successfully quit Assistance with developing a plan to quit Call to set up an individual appointment or find out when group classes will be held: [facility]: [phone] [facility]: [phone] [facility]: [phone] [facility]: [phone] Quit Smoking Action Plan and Resources [facility] offers an eight-week, online smoking cessation plan to all [facility] employees, regardless of whether [employer] is your medical insurance provider. Go to www.deeplocalpromedica.org/employeewell ness and click the Health Risk Assessment and Resources link to get started. In the Jcfpl9Ciptlh menu, click Action Plans instead of Health Risk Assessment to access the Quit Smoking Action Plan. Additional smoking cessation resources are also available to all [facility] employees on the Aqlnm0Hfenme web page at www.LinkCycle/quit smoking. [employer] Tobacco Cessation Program If [employer] is your medical insurance provider, there are more free resources available to you, including: No copays or deductibles on local tobacco cessation counseling services to help you quit Prescription assistance for tobacco cessation medications to help you quit For details about the tobacco cessation program available to [employer] members, go to www.[employer] (Search: Tobacco Cessation Program). [place] Tobacco Quit Line 5-175-URAK-NOW ( ) is a toll-free, telephonic service that helps [place] residents quit smoking and using tobacco. It is staffed by experts who tailor a quit plan for you and provide you with advice. [place] Tobacco Quit Line 8-053-BUWV-NOW ( ) is a toll-free, telephonic service that helps [place] residents quit smoking and using tobacco. It is staffed by experts who tailor a quit plan for you and provide you with advice. Two weeks of nicotine replacement therapy may be provided at no charge, if needed. Additional Resources These national organizations also offer free information and resources to help you quit tobacco: [place] [employer]--www.cancer.org/healthy/ stayawayfromtobacco [place] [employer]--www.heart.org (Search: Quit Smoking) Centers for Disease Control and Prevention--www.cdc.gov/tobacco [place] [employer]--www.lungusa.org documented in this encounter [employer] 12-31-2021 Note PROCEDURE: XR SHOULD ER RT [...] by: LESLIE MCGOVERN Date: 2021-12-31 16:19 [facility] Evaluation note Diagnosis Ischemia of both lower extremities- Primary [facility] Diagnosis Ischemia of both lower extremities- Primary Cigarette smoker Tobacco use disorder Claudication ([facility]) Unspecified peripheral vascular disease documented in this encounter [facility] SystemInstructionsNot on filedocumented in this encounter [facility] System[facility]ructionsNot on filedocumented in this encounter [facility] Summary Purpose Family History No Family History Records FoundNo Family History Records Found Advance Directives No Advanced Directives Records FoundNo Advanced Directives Records Found Reason for Referral Specialty Diagnoses / Procedures Referred By Contac t Referred To Contact Diagnoses Ischemia of both lower extremities Procedures Vas art doppler lwr bilat mult lev/PVR Lynn Finnegan MD [address], [address] [address] Referral ID Status Reason Start Date Expiration Date V isits Requested Visits Authorized [id number] Pending Review 02/01/2024 01/31/2025 1 1 Additional Source Comments (unrecognized sect ion and content) No Status Records FoundNo Status Records Found INFORMATION SOURCE (unrecogn ized section and content) DATE CREATED AUTHOR 01/20/2022 [facility] DATE CREATED AUTHOR AUTHOR'S ORGANIZ ATION [...] lower extremities Myrna Multani MD [address] [place] [address] Lynn Finnegan MD [address], [address] [address] Referral ID Status Reason Start Date Expiration Date Visits Requested Visits Authorized [id number] Pending Review Specialty Services Required 01/30/2024 01/29/2025 [...] BE BASED ON THE PRIMARY CLINICAL RECORDS. [facility]. provides no warranty or guarantee of the accuracy or completeness of information in this document.
--- OUTSIDE RECORDS SUMMARY | 2025-01-24 06:45 | XMS_ITS | Clinical Summary ---
Author Organization [facility] Address [address] [place] [address] Care Team Providers Care Formulation Technician Name Role Phone Unavailable Primary Care Provider Unavailabl e Social History Tobacco Use Types Packs/Day Years Used Date Smoking Tobacco: Never Assessed Sex and Gender Information Value Date Recorded Sex Assigned at Not on file Legal Sex Male 7:42 PM EST Gender Identity Not on file Sexual Orientation Not on file Plan of Treatment Not on file
--- OUTSIDE RECORDS SUMMARY | 2025-01-24 06:45 | XMS_ITS | Clinical Summary ---
Demographics Address [address] [place] [address] Home Phone Preferred Language ENG Marital Status Alevism Affiliation Unknown Race Other Race Ethnic Group Unknown Author Organization [facility] Address [address] [place], [place] [id number] Care Team Providers Care Broke Man Name Role Phone Unavailable Primary Care Provider Unavailabl e Allergies Active Allergy Reactions Criticality Noted Date Comments Sulfamethoxazole-Trim ethoprim Other: See Comments 10/10/2010 Joint symptoms and purpura Medications No known medications Active Problems Problem Noted Date Diagnosed Date Dermatitis 11/01/2010 Photosensitive contact dermatitis 11/01/2010 Anxiety 10/10/2010 Contact dermatitis and other eczema due to other chemical products 10/05/2010 Social History Tobacco Use Types Packs/Day Years Used Date Smoking Tobacco: Never Assessed Sex and Gender Information Value Date Recorded Sex Assigned at Not on file Legal Sex Male 8:12 AM EST Gender Identity Not on file Sexual Orientation Not on file Plan of Treatment Health Maintenance Due Date Last Done Comments Anxiety Screening 1980 Depression Screening 1980 HIV Screening 1980 Hepatitis C Screening 1980 DTaP,Tdap,Td Vaccine (1 - Tdap) [address] Colonography 12/11/2007 Cologuard (FIT-DNA) 12/11/2007 Colonoscopy 12/11/2007 Colorectal Cancer Screening 12/11/2007 Diabetes Screening 12/11/2007 Fecal Occult Blood 12/11/2007 Prostate Cancer Screening Discussion 12/11/2007 Sigmoidoscopy 12/11/2007 Pneumococcal Vaccine: 50+ (1 of 1 - PCV) 2012 Shingrix Vaccine (1 of 2) 2012 Covid-19 Vaccine (1 - 2023-25 season) 2024 Influenza Vaccine (Season Ended) 2025 RSV Vaccine (1 - 1-dose 75+ series) 2037 Insurance * Guarantor: Lionel Landin Account Type Relation to Patient Date of Phone Billing Address Personal/Family Self 1960 [address] [place] [address] [facility]
--- OUTSIDE RECORDS SUMMARY | 2025-01-24 06:45 | XMS_ITS | Patient Health Record ---
Author Organization [facility] Address [address] [place] [address] Care Team Providers Care Certified Physical Therapist Assistant Name Role Phone Marshall Multani Primary Care Provider [facility] Damaris Kumari Unavailable [phone] Sheila Trotter Unavailable [phone] Reason For Referral Reason NO AUTH REQ......... ...................NOT SCHEDULED................................[facility] MRI LUMBAR TO BE DONE AT [facility] Diagnosis 1 Degeneration of inte rvertebral disc of lumbar region with discogenic back pain and lower extremity pain (M51.362) Referral Organization [facility] Referring Provider First Name Damaris Referring Provider Last Name [facility] Referring Provider Speciality Orthopedic Surgery Referred Organization [facility] Referred Address [place], [place], Procedure 1 MRI Lumbar Spine w/o Dye ([id number]) General Notes Ely Xavier 2024 09:42:26 AM >, Catia Saavedra 01/17/2025 09:49:57 AM > MEDICARE PARTS A & B ACTIVE AND EFFECTIVE 10/13/15 PER [employer] WITH MEDICAID SECONDARY. NO AUTHORIZATION REQUIRED. FAXED TO DIAN.Kandice Sara 01/21/2025 11:29:23 AM > faxed Referral Priority Routine Medications Medication SIG (Take, Route, Fr equency, Duration) Notes Start Date End Date Status gabapentin 300 mg 1 cap(s) orally 3 ti mes a day for 30 day(s) 01/17/2025 Active meloxicam 15 mg 1 tab(s) orally once a day for 30 01/17/2025 Active Social History Tobacco Use: Social History Observation Description Date Details (start date - stop date) Current Smoker NA - NA Tobacco Control (Standard) Question Answer Notes Tobacco use: Current smoker How often do you smoke cigarettes? Every day How many cigarettes a day do you smoke? 11-20 Problems Problem Type SNOMED Code ICD Code Onset Dates Problem Status W/U Status Risk Notes Problem [id number] Lumbar radiculopathy (M54.16) Active confirmed Vital Signs Height 5'6 in 01/17/2025 Weight 154 lbs 01/17/2025 BMI 24.85 01/17/2025 Encounters Encounter Location Date Provider Diagnosis [facility] [address] [facility] [place] [address] [place] [address] 01/17/2025 Sheila Villasenorland Degeneration of intervertebral disc of lumbar region with discogenic back pain and lower extremity pain M51.362 and Lumbar radiculopathy M54.16 Assessments Encounter Date Diagnosis (ICD Code) Assessment Notes Treatment Notes Treatment Clinical Notes Section Notes 01/17/2025 Lumbar radiculopathy (ICD-10 - M54.16) 1. L1-S1 degenerative disc disease with radiculopathy, worse at L1-2 and L5-S1 01/17/2025 Degeneration of intervertebral disc of lumbar region with discogenic back pain and lower extremity pain (ICD-10 - M51.362) 1. L1-S1 degenerative disc disease with radiculopathy, worse at L1-2 and L5-S1 01/17/2025 Other Plan established by Dr. Mazariegos. Patient evaluated by myself and Dr. Mazariegos today. I have ordered an MRI of the lumbar spine to evaluate for neural compression given his bilateral lower extremity radicular symptoms. We are going to start him on meloxicam and gabapentin for his pain. We will see patient back in the office after imaging is complete to review and offer further recommendation s. The patient is very much in agreement with the treatment and/or diagnostic plan set forth and all questions were answered to the patient's satisfaction. Thanks once again. If we can be of further service to your patients with disorders of the spine, cervical, thoracic, or lumbar, please do not hesitate to contact Dr. Mazariegos. 1. L1-S1 degenerative disc disease with radiculopathy, worse at L1-2 and L5-S1 Plan Of Treatment Pending Test Test Name Order Date Lumbar spine 2v flex and ext - [id number] 01/2025 MRI : Lumbosacral Spine W/O Contrast - 7 8 01/17/2025 Insurance Providers Payer Name Payer Address Payer Phone Subscriber Number Group Number Insured Name Patient Relationship to Insured Coverage Start Date Coverage End [place] [address] [place] [phone] [id number] MARINO GARCES Self - patient is the insured [facility] [address] [place] [address] [phone] [id number] MARINO GARCES Self - patient is the insured 5
--- OUTSIDE RECORDS SUMMARY | 2025-01-24 06:45 | XMS_ITS | Patient Health Record ---
Author Organization [facility] in [place] Address [address] [place] [address] Care Team Providers Care Tool Design Engineer Name Role Phone Fernandez Navarro Primary Care Provider [phone] MYRNA NAVARRO Unavailable [phone] Allergies Allergen (clinical drug ingredient) Drug/Non Drug Allergy documented on EMR Reaction Allergy Type Onset Date Status Penicillin syncope Drug Allergy Active Results Component Value Reference Range Notes CT abdomen pelvis wo con Reviewed date:12/26/2024 03:34:27 PM Interpretation: Performing Lab: Notes/Report: Source Facility: [place] [address] CT Scan Report Signed Patient: LIONEL LANDIN MR#: [id number] : 1960 Acct:[id number] Age/Sex: 64 / M ADM Date: 12/26/24 Loc: LAB Attending Dr: Myrna Navarro M.D. Ordering Physician: Myrna Navarro M.D. Date of Service: 12/26/24 Procedure(s): CT abdomen pelvis wo/w con Accession Number(s): [id number] cc: Myrna Navarro M.D. [place] [address] Patient Name: LIONEL LANDIN MRN: [id number] date: 1960 Sex: M Assigned Patient Location: LAB Current Patient Location: LAB Accession/Order Number: [id number] Exam Date: 12/26/2024 13:35 Report Date: 12/26/2024 13:51 At the request of: MYRNA NAVARRO MD Procedure: CT abdomen pelvis wo/w con CT abdomen pelvis wo/w con 12/26/2024 12:49 PM SIGNS AND SYMPTOMS: Right-sided low back pain, flank pain, GI bleeding TECHNIQUE: Multidetector ct axial images of the abdomen and pelvis were obtained with an without IV contrast. Multiplanar reformats were performed and reviewed to further define anatomy and possible pathology. CT was performed with one or more of the following dose reduction techniques: Automated exposure control, adjustment of the mA and/or kV according to patient size, or use of iterative reconstruction technique. COMPARISON: 07/16/2019. FINDINGS: Lower Chest: Atherosclerotic changes are noted in the thoracic aorta. ABDOMEN: Liver: The liver is hypoattenuating suggesting hepatic steatosis. This is similar to the prior exam. Bile Ducts: Normal caliber. Gallbladder: There is a stone dependently layering in the gallbladder lumen. This is similar to the prior study. Pancreas: Within normal limits. Spleen: Within normal limits. Adrenals: There is a nodule in the right adrenal gland measuring 2.0 x 1.7 cm in greatest dimension. This is similar to the prior exam. This is presumed to BE benign. Kidneys: There are 2 stones in the left renal collecting system measuring 3 mm in greatest dimension. There are simple cysts in the renal cortices requiring no further follow-up. Pelvis: Reproductive Organs: No pelvic masses. Ureters: Within normal limits. Bladder: Within normal limits. Bowel: Uncomplicated colonic diverticula are noted. There is no bowel obstruction. There is a normal appendix in the right lower quadrant. Mesenteric Lymph Nodes: No enlarged mesenteric lymph nodes. Peritoneum: No ascites or free air, no fluid collection. Vessels: Atherosclerotic changes are noted in the abdominal aorta and its branches. Retroperitoneum: Within normal limits. Abdominal Wall: Within normal limits. Bones: Degenerative changes are noted in the lower lumbar spine. Degenerative changes are noted in the hips and sacroiliac joints. There is a central disc protrusion at L4-5 contributing to spinal canal stenosis. Broad-based disc bulges are noted at L2-L3 and L5-S1. This contributes to spinal canal and neural foraminal stenosis. CT/CT abdomen pelvis wo/w con IMPRESSION: No acute intra-abdominal pathology. Nonobstructing renal stones are noted on the left measuring up to 3 mm in greatest dimension. Disc degenerative changes are noted in the lower lumbar spine, greatest at L4-5 contributing to spinal canal and neural foraminal stenosis as above. Findings suggest hepatic steatosis. Impression dictated by: Cirilo Chester M.D. 12/26/2024 1:51 PM Dictation Location: [place] [address] Electronically authenticated by: [id number] Y Date: 12/26/2024 13:51 Dictated By: Cirilo Chester M.D. Signed By: 12/26/24 1354 DD/ 1351 TD/TT: Day Care Home Provider: [place] [address] CT Scan Report Signed Patient: JAI LANDIN MR#: [id number] : 1960 Acct:[id number] Age/Sex: 64 / M ADM Date: 12/26/24 Loc: LAB Attending Dr: Brenda Navarro M.D. Ordering Physician: Myrna Navarro M.D. Date of Service: 12/26/24 Procedure(s): CT abd omen pelvis wo/w con Accession Number(s): [id number] cc: Myran Navarro M.D. [place] [id number] Patient Name: LIONEL LANDIN MRN: [id number] date: 1960 Sex: M Assigned Patient Location: LAB Current Patient Loca tion: LAB Accession/Order Numb er: [id number] Exam Date: 12/26/2024 13:35 Report Date: 12/26/2024 13:51 At the request of: MYRNA NAVARRO MD Procedure: CT abdome n pelvis wo/w con CT abdomen pelvis wo /w con 12/26/2024 12:49 PM SIGNS AND SYMPTOMS: Right-sided low back pain, flank pain, GI bleeding TECHNIQUE: Multidete ctor ct axial images of the abdomen and pelvis were obtained with an wit hout IV contrast. Multiplanar reformats were performed and reviewed to further define anatomy and possible pathology. CT was performed with one or more of the following dose reduction techniques: Automated exposure control, adjustment of the mA and/or kV according to patient size, or use of iterative reconstruction technique. COMPARISON: 07/16/2019. FINDINGS: Lower Chest: Atherosclerotic changes are noted in the thoracic aorta. ABDOMEN: Liver: The liver is hypoattenuating suggesting hepatic steatosis. This is similar to the prior exam. Bile Ducts: Normal caliber. Gallbladder: There i s a stone dependently layering in the gallbladder lumen. This is similar to t he prior study. Pancreas: Within nor mal limits. Spleen: Within anabelle l limits. Adrenals: There is a nodule in the right adrenal gland measuring 2.0 x 1.7 cm in greatest dimensio n. This is similar to the prior exam. This is presumed to BE benign. Kidneys: There are 2 stones in the left renal collecting system measuring 3 mm in greatest dimensio n. There are simple cysts in the renal cortices requiring no further follow-up. Pelvis: Reproductive Organs: No pelvic masses. Ureters: Within norm al limits. Bladder: Within norm al limits. Bowel: Uncomplicated colonic diverticula are noted. There is no bowel obstruction. There i s a normal appendix in the right lower quadrant. Mesenteric Lymph Nod es: No enlarged mesenteric lymph nodes. Peritoneum: No ascit es or free air, no fluid collection. Vessels: Atheroscler otic changes are noted in the abdominal aorta and its branches. Retroperitoneum: Wit hin normal limits. Abdominal Wall: With in normal limits. Bones: Degenerative changes are noted in the lower lumbar spine. Degenerative changes are noted in the hips and sacroiliac joints. There is a central disc protrusion at L4-5 contributing to spinal canal stenosis. Broad-based disc bulges are noted at L2-L3 and L5-S1. This contributes to spinal canal and neural foraminal stenosis. C T/CT abdomen pelvis wo/w con IMPRESSION: No acute intra-abdom inal pathology. Nonobstructing renal stones are noted on the left measuring up to 3 mm in greatest dimension. Disc degenerative ch anges are noted in the lower lumbar spine, greatest at L4-5 contributing to spinal canal and neural foraminal stenosis as above. Findings suggest hep atic steatosis. Impression dictated by: Cirilo Chester M.D. 12/26/2024 1:51 PM Dictation Location: [place] [address] Electronically authenticated by: [id number] Y Date: 12/26/2024 13:51 Dictated By: Cirilo Chester M.D. Signed By: 12/26/24 1354 DD/ 1351 TD/TT: Day Care Home Provider: CREATININE Reviewed date:12/26/2024 03:34:27 PM Interpretation: Performing Lab: Notes/Report: [facility] , Creatinine 1.06 0.70-1.30 mg/dL Estimated GFR ( Roberta >60 >=60 mL/min/1.73m 2 Estimated GFR (Non- Genesis >60 >=60 mL/min/1.73m 2 Performing Lab: see note ML - [facility] LB US arterial duplex LE RT Reviewed date:01/28/2024 12:36:03 PM Interpretation: Performing Lab: Notes/Report: Source Facility: [place] [address] Ultrasound Report Signed Patient: LIONEL LANDIN MR#: [id number] : 1960 Acct:[id number] Age/Sex: 63 / M ADM Date: 01/26/24 Loc: US Attending Dr: Myrna Navarro M.D. Ordering Physician: Myrna Navarro M.D. Date of Service: 01/26/24 Procedure(s): US arterial duplex LE BI Accession Number(s): [id number] cc: Myrna Navarro M.D. [place] [id number] Patient Name: LIONEL LANDIN MRN: [id number] date: 1960 Sex: M Assigned Patient Location: Current Patient Location: US Accession/Order Number: [id number] Exam Date: 01/26/2024 07:04 Report Date: 01/26/2024 10:00 At the request of: MYRNA NAVARRO Procedure: US arterial duplex LE BI EXAMINATION: US arterial duplex LE BI HISTORY: arterial disease I77.9 COMPARISON: No relevant comparison available. TECHNIQUE: Color duplex Doppler ultrasound evaluation analysis was performed in the usual manner. FINDINGS: RIGHT LOWER EXTREMITY ARTERIAL Mild to moderate atherosclerotic plaque. Triphasic waveforms proximally. Biphasic waveforms distally External Iliac PSV: 90.9 cm/s External Iliac EDV: 0.0 cm/s Common Femoral PSV: 116.7 cm/s Common Femoral EDV: 0.0 cm/s Superficial Femoral Proximal PSV: 79.3 cm/s Proximal EDV: 0.0 cm/s Mid PSV: 76.7 cm/s Mid EDV: 0.0 cm/s Distal PSV: 201.3 cm/s Distal EDV: 0.0 cm/s Popliteal Proximal PSV: 95.1 cm/s Popliteal Proximal EDV: 0.0 cm/s Posterior Tibial Proximal PSV: 35.8 cm/s Proximal EDV: 0.0 cm/s Mid PSV: 31.9 cm/s Mid EDV: 0.7 cm/s Distal PSV: 28.1 cm/s Distal EDV: 0.0 cm/s Anterior Tibial Proximal PSV: 49.9 cm/s Proximal EDV: 0.0 cm/s Mid PSV: 56.9 cm/s Mid EDV: 0.0 cm/s Distal PSV: 36.3 cm/s Distal EDV: 0.0 cm/s LEFT LOWER EXTREMITY ARTERIAL Mild to moderate atherosclerotic plaque. Triphasic waveforms proximally. Biphasic waveforms distally External Iliac PSV: 94.1 cm/s External Iliac EDV: 0.0 cm/s Common Femoral PSV: 89.6 cm/s Common Femoral EDV: 0.0 cm/s Superficial Femoral Proximal PSV: 97.3 cm/s Proximal EDV: 7.7 cm/s Mid PSV: 107.0 cm/s Mid EDV: 0.0 cm/s Distal PSV: 84.4 cm/s Distal EDV: 7.7 cm/s Popliteal Proximal PSV: 59 cm/s Popliteal Proximal EDV: 0 cm/s Posterior Tibial Proximal PSV: 37.2 cm/s Proximal EDV: 0.0 cm/s Mid PSV: 36.1 cm/s Mid EDV: 0.0 cm/s Distal PSV: 32.5 cm/s Distal EDV: Anterior Tibial Proximal PSV: 136.9 cm/s Proximal EDV: 9.5 cm/s Mid PSV: 66.9 cm/s Mid EDV: 2.3 cm/s Distal PSV: 40.5 cm/s Distal EDV: 0.0 cm/s US/US arterial duplex LE BI IMPRESSION: Findings suggest mild ischemia mid to distal bilateral legs Electronically authenticated by: KASSIE MANNING Date: 01/26/2024 10:00 Dictated By: Kassie Manning M.D. Signed By: 01/26/24 1003 DD/ 1000 TD/TT: Day Care Home Provider: [place] [address] Ultrasound Report Signed Patient: JAI LANDIN MR#: [id number] : 1960 Acct:[id number] Age/Sex: 63 / M ADM Date: 01/26/24 Loc: US Attending Dr: Brenda Navarro M.D. Ordering Physician: Myrna Navarro M.D. Date of Service: 01/26/24 Procedure(s): US art erial duplex LE BI Accession Number(s): [id number] cc: Myrna Navarro M.D. [place] [address] Patient Name: LIONEL LANDIN MRN: [id number] date: 1960 Sex: M Assigned Patient Location: US Current Patient Loca tion: US Accession/Order Numb er: [id number] Exam Date: 01/26/2024 07:04 Report Date: 01/26/2024 10:00 At the request of: MYRNA NAVARRO Procedure: US arteri al duplex LE BI EXAMINATION: US renata rial duplex LE BI HISTORY: arterial di sease I77.9 COMPARISON: No relev ant comparison available. TECHNIQUE: Color dup shayy Doppler ultrasound evaluation analysis was performed in the usual manner. FINDINGS: RIGHT LOWER EXTREMIT Y ARTERIAL Mild to moderate atherosclerotic plaque. Triphasic waveforms proximally. Biphasic waveforms distally External Iliac PSV: 90.9 cm/s External Iliac EDV: 0.0 cm/s Common Femoral PSV: 116.7 cm/s Common Femoral EDV: 0.0 cm/s Superficial Femoral Proximal PSV: 79.3 c m/s Proximal EDV: 0.0 cm/s Mid PSV: 76.7 cm/s M id EDV: 0.0 cm/s Distal PSV: 201.3 cm /s Distal EDV: 0.0 cm/s Popliteal Proximal P SV: 95.1 cm/s Popliteal Proximal EDV: 0.0 cm/s Posterior Tibial Proximal PSV: 35.8 c m/s Proximal EDV: 0.0 cm/s Mid PSV: 31.9 cm/s M id EDV: 0.7 cm/s Distal PSV: 28.1 cm/ s Distal EDV: 0.0 cm/s Anterior Tibial Proximal PSV: 49.9 c m/s Proximal EDV: 0.0 cm/s Mid PSV: 56.9 cm/s M id EDV: 0.0 cm/s Distal PSV: 36.3 cm/ s Distal EDV: 0.0 cm/s LEFT LOWER EXTREMITY ARTERIAL Mild to moderate atherosclerotic plaque. Triphasic waveforms proximally. Biphasic waveforms distally External Iliac PSV: 94.1 cm/s External Iliac EDV: 0.0 cm/s Common Femoral PSV: 89.6 cm/s Common Femoral EDV: 0.0 cm/s Superficial Femoral Proximal PSV: 97.3 c m/s Proximal EDV: 7.7 cm/s Mid PSV: 107.0 cm/s Mid EDV: 0.0 cm/s Distal PSV: 84.4 cm/ s Distal EDV: 7.7 cm/s Popliteal Proximal P SV: 59 cm/s Popliteal Proximal EDV: 0 cm/s Posterior Tibial Proximal PSV: 37.2 c m/s Proximal EDV: 0.0 cm/s Mid PSV: 36.1 cm/s M id EDV: 0.0 cm/s Distal PSV: 32.5 cm/ s Distal EDV: Anterior Tibial Proximal PSV: 136.9 cm/s Proximal EDV: 9.5 cm/s Mid PSV: 66.9 cm/s M id EDV: 2.3 cm/s Distal PSV: 40.5 cm/ s Distal EDV: 0.0 cm/s U S/US arterial duplex LE BI IMPRESSION: Findings suggest mil d ischemia mid to distal bilateral legs Electronically authenticated by: KASSIE MANNING Date: 01/26/2024 10:00 Dictated By: Aj Manning M.D. Signed By: 01/26/24 1003 DD/ 1000 TD/TT: Day Care Home Provider: VALENTE CAMERON ([id number]) - IN OFFICE Reviewed date:12/26/2024 03:34:27 PM Interpretation: Performing Lab: Notes/Report: COLOR bright yellow CLARITY clear GLUCOSE 1000 BILIRUBIN neg KETONE neg SPECIFIC GRAVITY 1.005 BLOOD neg PH 5 PROTEIN neg UROBILINOGEN neg NITRITE neg LEUKOCYTE ESTERASE neg XR lumbar spine 2-3V Reviewed date:12/29/2024 10:55:57 PM Interpretation: Performing Lab: Notes/Report: Source Facility: [place] [address] [place] [address] XRay Report Signed Patient: LIONEL LANDIN MR#: [id number] : 1960 Acct:[id number] Age/Sex: 64 / M ADM Date: 12/27/24 Loc: RAD Attending Dr: Myrna Navarro M.D. Ordering Physician: Myrna Navarro M.D. Date of Service: 12/27/24 Procedure(s): XR lumbar spine 2-3V Accession Number(s): [id number] cc: Myrna Navarro M.D. [place] [address] Patient Name: LIONEL LANDIN MRN: [id number] date: 1960 Sex: M Assigned Patient Location: [facility] Current Patient Location: [facility] Accession/Order Number: [id number] Exam Date: 12/27/2024 10:36 Report Date: 12/27/2024 10:40 At the request of: MYRNA NAVARRO MD Procedure: XR lumbar spine 2-3V XR lumbar spine 2-3V 12/27/2024 9:08 AM SIGNS AND SYMPTOMS: Acute low back pain radiating into right hip and left leg numbness 3 weeks PROTOCOLS: Frontal and lateral radiographs of the lumbar spine COMPARISON: 12/26/2024 FINDINGS: The alignment, development and bony structures are normal. There is no fracture or destructive lesion. There is mild disc height loss at L4-5 and L5-S1. There is facet hypertrophy predominantly at these levels. Mild degenerative changes are noted in the sacroiliac joints. Atherosclerotic changes are present in the abdominal aorta. XR/XR lumbar spine 2-3V IMPRESSION: Degenerative changes are noted in the lumbar spine, greatest at L4-5 and L5-S1 similar to that seen on the previous abdomen and pelvis CT. If there is ongoing clinical concern for spinal canal or neural foraminal stenosis this would be better demonstrated on MRI. Impression dictated by: Cirilo Chester M.D. 12/27/2024 10:40 AM Dictation Location: [place] [address] Electronically authenticated by: [id number] Y Date: 12/27/2024 10:40 Dictated By: Cirilo Chester M.D. Signed By: 12/27/24 1043 DD/ 1040 TD/TT: Day Care Home Provider: [place] [address] XRay Report Signed Patient: JAI LANDIN MR#: [id number] : 1960 Acct:[id number] Age/Sex: 64 / M ADM Date: 12/27/24 Loc: RAD Attending Dr: Brenda Navarro M.D. Ordering Physician: Myrna Navarro M.D. Date of Service: 12/27/24 Procedure(s): XR lum bar spine 2-3V Accession Number(s): [id number] cc: Myrna Navarro M.D. [place] [id number] Patient Name: LIONEL LANDIN MRN: [id number] date: 1960 Sex: M Assigned Patient Location: [facility] Current Patient Loca tion: RAD Accession/Order Numb er: [id number] Exam Date: 12/27/2024 10:36 Report Date: 12/27/2024 10:40 At the request of: MYRNA NAVARRO MD Procedure: XR lumbar spine 2-3V XR lumbar spine 2-3V 12/27/2024 9:08 AM SIGNS AND SYMPTOMS: Acute low back pain radiating into right hip and left leg numbness 3 weeks PROTOCOLS: Frontal a nd lateral radiographs of the lumbar spine COMPARISON: 12/26/2024 FINDINGS: The alignment, development and bony structures are normal. There is no fracture or destruct ramone lesion. There is mild disc h eight loss at L4-5 and L5-S1. There is facet hypertrophy predominantly at the se levels. Mild degenerative ch anges are noted in the sacroiliac joints. Atherosclerotic kwok ges are present in the abdominal aorta. X R/XR lumbar spine 2-3V IMPRESSION: Degenerative changes are noted in the lumbar spine, greatest at L4-5 and L5-S1 similar to that seen on the previous abdomen and pelvis CT. If there is ongoing clinical con cern for spinal canal or neural foraminal stenosis this would be better demonstrated on MRI. Impression dictated by: Cirilo Chester M.D. 12/27/2024 10:40 AM Dictation Location: [place] Electronically authenticated by: [id number] Y Date: 12/27/2024 10:40 Dictated By: Cirilo Chester M.D. Signed By: 12/27/24 1043 DD/ 1040 TD/TT: Day Care Home Provider: Reason For Referral Diagnosis 1 Ischemia of both low er extremities (I99.8) Referral Organization [facility] Referring Provider First Name MYRNA Referring Provider Last Name NERISSA Referring Provider [facility] kenneth Referred Provider Lynn Finnegan Referred Provider Specialty Vascular [facility] sania Referral Priority Routine Diagnosis 1 Low back pain at [facility] (M54.50) Referral Organization [facility] Referring Provider First Name Fernandez Referring Provider Last Name Nerissa Referring Provider Speciality [facility] kenneth Referred Provider Damaris Jennings Referred Provider Specialty Orthopedic S urgery Referral Priority Routine Medications Medication SIG (Take, Route, Frequency, Duration) Notes Start Date End Date Status Jardiance 25 MG TAKE 1 TABLET BY LYNN TH EVERY DAY FOR 30 DAYS for 30 days Active Glimepiride 4 MG TAKE 1 TABLET BY LYNN TH TWICE A DAY for 90 Active Rosuvastatin Calcium 5 MG TAKE 1 TABLET BY MOUTH EVERY DAY FOR 30 DAYS for 90 days Active Clopidogrel Bisulfate 75 MG TAKE 1 TABLE T BY MOUTH EVERY DAY for 90 Active Protonix 40 MG 1 tablet Orally Once a day for 30 days 12/20/2024 Active Amitriptyline HCl 50 MG 1-2 tablet at be dtime Orally Once a day for 90 days Active Metoprolol Tartrate 25 MG TAKE 1 TABLET BY MOUTH TWICE A DAY for 90 Active metFORMIN HCl 500 MG 1 tablet with a jerrod l Orally BID Active Social History Tobacco Use: Social History Observation Description Date Details (start date - stop date) Current Smoker NA - NA Tobacco Use/Smoking Question Answer Notes Patient is a current every day smoker Alcohol Screen (Audit-C) Question Answer Notes Did you have a drink containing alcohol in the p ast year? No Points 0 Interpretation Negative AUDIT-C (Standard) Question Answer Notes Did you have a drink containing alcohol in the p ast year? No Points 0 Interpretation Negative Problems Problem Type SNOMED Code ICD Code Onset Dates Problem Status W/U Status Risk Notes Problem Coronary artery dise ase (84172130) CAD (coronary artery disease) (I25.10) Active confirmed Problem Benign essential hypertension (4101831) Benign essential hypertension (I10) Active confirmed Problem Well adult (643213107) Well adul t (Z00.00) Active confirmed Problem Dysphagia (44412952) Dysphagia (R13.10) Active confirmed Problem Flank pain (882256247) Flank annalise n (R10.9) Active confirmed Problem Right upper quadrant pain (260893855) Abdominal pain, RUQ (R10.11) Active confirmed Problem Gastrointestinal hemorrhage (68308532) GI bleed (K92.2) Active confirmed Problem History of hematuria (431178153) H/O hematuria (Z87.448) Active confirmed Problem S/P PTCA (percutaneous transluminal coronary angioplasty) (Z98.61) Active confirmed Problem Hyperosmolarity due to secondary diabetes mellitus (161697149469001) 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 (N[facility]) (E11.00) Active confirmed Problem Shoulder impingement syndrome (455349298) Shoulder impingement syndrome (M75.40) Active confirmed Problem Arterial disease (593213627) Arterial disease (I77.9) Active confirmed Problem Pure hypercholesterolemia (173315046) Pure hypercholester olemia, unspecified (E78.00) Active confirmed Vital Signs Blood pressure diastolic 80 mm Hg 12/20/2024 Height 66 in 12/20/2024 Blood pressure systolic 162 mm Hg 12/20/2024 Weight 150.4 lbs 12/20/2024 BMI 24.27 kg/m2 12/20/2024 Encounters Encounter Location Date Provider Diagnosis [facility] [address] [place] [address] 12/20/2024 Fernandez Hoy GI bleed K92.2 and Flank pain R10.9 [facility] [address] [place] [address] 01/28/2024 MYRNA HOY Ischemia of both low er extremities I99.8 [facility] [address] [place] [address] 11/05/2024 Fernandez Hoy CAD (coronary artery disease) I25.10 [facility] [address] [place] [address] 12/26/2024 Fernandez Hoy Low back pain at multiple sites M54.50 [facility] [address] [place] [address] 12/29/2024 Fernandez Hoy Low back pain at multiple sites M54.50 [facility] [address] [place] [address] 01/22/2025 Fernandez Hoy Assessments Encounter Date Diagnosis (ICD Code) Assessment Notes Treatment Notes Treatment Clinical Notes Section Notes 12/20/2024 GI bleed (ICD-10 - K92.2) 12/20/2024 Flank pain (ICD-10 - R10.9) 01/28/2024 Ischemia of both lower extremities (ICD-10 - I99.8) 11/05/2024 CAD (coronary artery disease) (ICD-10 - I25.10) 12/26/2024 Low back pain at multiple sites (ICD-10 - M54.50) 12/29/2024 Low back pain at multiple sites (ICD-10 - M54.50) Plan Of Treatment Pending Test Test Name Order Date CMP (COMPLETE METABOLIC PANEL) 4 CMP (COMPLETE METABOLIC PANEL) 3 HEMOGLOBIN A1C (GLYCO) 12/29/2022 HEMOGLOBIN A1C (GLYCO) 01/15/2024 LIPID PANEL (CHOL/TRIG/HDL/LDL) 01/15/20 24 LIPID PANEL (CHOL/TRIG/HDL/LDL) 12/30/19 23 CBC WITH DIFF 01/15/2024 CBC WITH DIFF 12/29/2022 PSA, PROSTATE-SPECIFIC ANTIGEN 3 URIC ACID 12/29/2022 CT Chest Low Dose for Screening* 023 PSA, TOTAL 01/15/2024 STOOL OCCULT BLOOD 01/15/2024 STOOL OCCULT BLOOD 12/29/2022 CT ABD and PELV W CON 12/20/2024 CT ABD and PELVIS WO CON 12/20/2024 US ARTERY LEG ACE 01/23/2024 XR LSPINE 2_3 VIEWS 12/26/2024 THYROID PANEL (T4/TSH/FREE T3) 3 THYROID PANEL (T4/TSH/FREE T3) 4 VASC ANKLE BRACHIAL INDEX (PIO) WITHOUT EXERCISE 01/15/2024 Next Appt Details Provider Name:Fernandez Navarro, 08:00:00 AM, [address] [place], [address], Insurance Providers Payer Name Payer Address Payer Phone Subscriber Number Group Number Insured Name Patient Relationship to Insured Coverage Start Date Coverage End Date [place] [address] [place] [address] [id number] Lionel Landin Self - patient is the insured [place] 2ND INS [address] [place], [place] [id number] Lionel Landin Self - patient is the insured Medical (General) History Medical History History ICD Code Shoulder impingement syndrome M75.40 Well adult Z00.00 Pure hypercholesterolemia, unspecified E 78.00 S/P PTCA (percutaneous transluminal norma nary angioplasty) Z98.61 CAD (coronary artery disease) I25.10 Benign essential hypertension I10 Abdominal pain, RUQ R10.11 H/O hematuria Z87.448 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 -hypros coma (N[facility]HC) E11.00 Dysphagia R13.10 Surgical History Surgery Date(Month/Year) Replaced bone in jaw Bolts in bilat feet Cardiac stents 5 or 6 Hospitalization History Reason Date(Month/Year) surgery diabetes
--- OUTSIDE RECORDS SUMMARY | 2025-01-24 06:45 | XMS_ITS | Encounter Summary ---
Author Organization [facility] [employer] [facility] [employer] Address [id number] [address] [place] [address] Care Team Providers Care Door Attendant Name Role Phone Unavailable Primary Care Provider Unavailabl e Encounter Details Date Type Department Care Team ([facility] Contact Info) Description 01/31/2024 Orders Only [facility] [employer] [address] [place] [phone] Transcribe, Orders Support User Pain (Primary Dx) Social History Tobacco Use Types Packs/Day Years Used Date Smoking Tobacco: Never Assessed Childcare Answer Date Recorded Childcare Unknown 01/21/2019 Employment Answer Date Recorded Employment Unknown 01/21/2019 Hunger Screening Answer Date Recorded Within the past 12 months we worried whether our food would run out before we got money to buy more. Never True 02/01/2024 Within the past 12 months th e food we bought just didn't last and we didn't have money to get more. Never True 02/01/2024 Sex and Gender Information Value Date Recorded Sex Assigned at Not on file Legal Sex Male 2:14 PM EDT Gender Identity Not on file Sexual Orientation Not on file documented as of this encounter Plan of Treatment Upcoming Encounters Date Type Department Care Team (Late Contact Info) Description 02/13/2025 8:30 AM EDT Office Visit [facility] [place] [address] [place] [address] Lynn Finnegan MD [address], [address] [address] documented as of this encounter Results * Vas art duplex lwr bilateral (01/26/2024 7:10 AM EDT) us Scanning Provider External CV VASCULAR ORDERABLE S Final Result MEDUNYQING * Vas art digit limited single lower (01/18/2024 9:55 AM EDT) us Scanning Provider External CV VASCULAR ORDERABLE S Final Result MEDUNYQING documented in this encounter Visit Diagnoses Diagnosis Pain- Primary Generalized pain documented in this encounter
--- OUTSIDE RECORDS SUMMARY | 2025-01-24 06:45 | XMS_ITS | Clinical Summary ---
Author Organization [employer] Address [id number] [address] [place] [address] Care Team Providers Care Senior Internal Auditor Name Role Phone Unavailable Primary Care Provider Unavailabl e Allergies Active Allergy Reactions Criticality Noted Date Comments Penicillins Hives 02/01/2024 Sulfamethoxazole-Trimet hopri Other (See Comments) 10/10/2010 Joint symptoms and purpura Medications aspirin 325 mg tablet Take 1 tablet (325 mg total) by mouth every 6 (six) hours as needed. Active varenicline (CHANTIX STARTING MONTH BOX) 0.5 mg (11)- 1 mg (42) tablet Take 0.5 mg by mouth in the morning and 0.5 mg before bedtime. Active ibuprofen (AdviL) 200 mg tablet Take 1 tablet (200 mg total) by mouth every 6 (six) hours as needed. Active metoprolol tartrate (LOPRESSOR) 25 mg tablet Take 1 tablet (25 mg total) by mouth in the morning and 1 tablet (25 mg total) before bedtime. Active pioglitazone (ACTOS) 15 mg tablet Take 1 tablet (15 mg total) by mouth in the morning. 01/15/2024 Active rosuvastatin (CRESTOR) 5 mg tablet Take 1 tablet (5 mg total) by mouth in the morning. 01/12/2024 Active Active Problems Problem Noted Date Diagnosed Date Chest pain 02/01/2024 Coronary arteriosclerosis 02/01/2024 Disorder of coronary artery 02/01/2024 Generalized ischemic myocardial dysfunction 01/13 Tobacco dependence syndrome 02/01/2024 Cigarette smoker 02/01/2024 Assessment & Plan (02/01/2024 9:40 AM EDT): Counselled for smoking cessation in length, at least 4 min. Claudication 02/01/2024 Assessment & Plan (02/01/2024 9:40 AM EDT): Smoking cessation, ASA,Crestor, walking program PVR and follow up in a year Dermatitis 11/01/2010 Photosensitive contact dermatitis 11/01/2010 Anxiety 10/10/2010 Social History Tobacco Use Types Packs/Day Years Used Date Smoking Tobacco: Every Day Cigarettes 0.5 53.4 Started: 1969 Smokeless Tobacco: Current Tobacco Cessation:Ready to Q uit: No Alcohol Use Standard Drinks/Week Comments Defer 0 (1 standard drink = 0.6 oz pur e alcohol) Childcare Answer Date Recorded Childcare Unknown 01/21/2019 [...] on file Sexual Orientation Not on file Last Filed Vital Signs Vital Sign Reading Time Taken Comments Blood Pressure 140/78 02/01/2024 9:24 AM EDT Pulse 70 02/01/2024 9:20 AM EDT Temperature - - Respiratory Rate - - Oxygen Saturation 98% 02/01/2024 9:20 AM EDT Inhaled Oxygen Concentration - - Weight 67.2 kg (148 lb 3.2 oz) 02/01/2024 9:20 A M EDT Height 167.6 cm (5' 6 ) 02/01/2024 9:20 AM EDT Body Mass Index 23.92 02/01/2024 9:20 AM EDT Plan of Treatment Upcoming Encounters Date Type Department Care Team (Late st Contact Info) Description 02/13/2025 8:30 AM EDT Office Visit [facility] [address] [place] [address] Lynn Finnegan MD [address], [address] [address] Health Maintenance Due Date Last Done Comments Tobacco Counseling 1962 Depression Screening 1974 DTaP,Tdap and Td Vaccines (1 - Tdap) 1981 Zoster (Shingles) Vaccine (1 of 2) 2012 Adult BMI Screening 01/31/2025 02/01/2024 Tobacco Screening 01/31/2025 02/01/2024 Influenza Vaccine 04/14/2025 Medical Devices Not on file Insurance [place]ICAID [place]
== END 2025-01-24 06:43 | disposition home or self-care (01) ==
LOC: MRI 06:42
PROVIDERS: PCP Family Medicine; Visit Provider Orthopaedic Surgery Orthopaedic Surgery of the Spine
DX: M51.362 Other intervertebral disc degeneration, lumbar region with discogenic back pain and lower extremity pain (principal); M54.16 Radiculopathy, lumbar region
CPT/HCPCS: 72148

== ENCOUNTER 2025-03-05 08:16 | Outpatient (OUT) | payer MEDICARE, MEDICAID, SELFPAY ==
--- OUTSIDE RECORDS SUMMARY | 2025-01-26 08:49 | XMS_ITS ---
Author Organization [facility] [place] Address [address] [place] [address] Care Team Providers Care Director Engineering Name Role Phone aJvyFernandez gibson Primary Care Provider [phone] Reason For Referral Reason second opinion Diagnosis 1 Lumbar stenosis (M48 .061) Diagnosis 2 Lumbar disc disorder (M51.9) Referral Organization [facility] Referring Provider First Name Fernandez Referring Provider Last Name Nerissa Referring Provider Speciality Family Med kenneth Referred Provider Del Lee Referred Provider Specialty Neurosurgery Referral Priority Routine REASON FOR VISIT Neuro Referral Problems Problem Type SNOMED Code ICD Code Onset Dates Problem Status W/U Status Risk Notes Problem Lumbar stenosis (M48.061) Active confirmed Problem Disorder of lumbar disc (999089633) Lumbar disc disorder (M51.9) Active confirmed Encounters Encounter Location Date Provider Diagnosis [facility] [address] [place] [address] 01/26/2025 Fernandez Multani Lumbar stenosis M48.061 and Lumbar disc disorder M51.9 Assessments Encounter Date Diagnosis (ICD Code) Assessment Notes Treatment Notes Treatment Clinical Notes Section Notes 01/26/2025 Lumbar stenosis (ICD-10 - M48.061) 01/26/2025 Lumbar disc disorder (ICD-10 - M51.9) Plan Of Treatment Referrals Referral Date Details 01/27/2025 01/27/2025, second o [facility] [place] Progress Notes * Lionel LANDIN ADOB:[birth year] (64 yo M)Acc No.[id number]:01/26/2025 Patient: Fabian Lionel SAN :1960 A ge:64 Y S ex:Male Address:[address] [place] [address], [place], [address] Subjective: * Chief Complaints: * N euro Referral * Medical History: * Surgical History: * Hospitalization/Major Diagno stic Procedure: * Medications: Objective: * Vitals: * Physical Examination: Assessment: * Assessment: 1. L umbar stenosis - M48.061 (Primary) 2 . L umbar disc disorder - M51.9? Plan: * Treatment: 2. L umbar disc disorder Referral To:[facility] Reason:second opinion * Procedure Codes: * true * Date: Generated for Madan anne/Andrew/eTransmitting on: 0 03/05/2025 08:23 AM EDT Consultation Request Notes Referral Date Referring Provider Referred Provider Not es 01/27/2025 Fernandez Multani [place] second opinion
--- OUTSIDE RECORDS SUMMARY | 2025-02-27 09:30 | XMS_ITS | Encounter Summary ---
Author Organization [facility] Address [id number] [address] [place] [address] Care Team Providers Care Railroad Car Repair Supervisor Name Role Phone Unavailable Primary Care Provider Unavailabl e Reason for Referral * Vascular (Routine) - Authorized Specialty Diagnoses / Procedures Referred By Contac t Referred To Contact Diagnoses Cigarette smoker Severe claudication Procedures Vas art doppler lwr bilat mult lev/PVR Lynn Finnegan MD [address] [address] Phone: tel: fax: Referral ID Status Reason Start Date Expiration Date V isits Requested Visits Authorized [id number] Authorized 02/27/2025 02/27/2026 1 1 Reason for Visit * Reason Comments 1 year follow up for limb ischemia with Vas art duplex lwr Encounter Details Date Type Department Care Team (Late st Contact Info) Description 02/27/2025 9:30 AM EDT Office Visit [facility] [place] [address] Lynn Finnegan MD [address], [address] [address] Cigarette smoker (Primary Dx); Severe claudication; Lumbar [...] Past Medical History: Diagnosis Date Diabetes mellitus ([facility]) Hypertension Myocardial infarction ([facility]) Past Surgical History: Past Surgical History: Procedure [...] stenosis with neurogenic claudication Follow up with betty * Assessment & Plan Note - Lynn [...] Contact Info) Description 03/07/2025 1:00 PM EDT Appointment [facility] - [facility]ascular [address] [place] [address] Lynn Finnegan MD [address], [facility] [address] [place] [address] 03/20/2025 9:40 AM EDT Office Visit [facility] [address] [place] [address] Lynn Finnegan MD [address], [address] [place] [address] Scheduled Orders Name Type Priority Associated Diagnoses Orde r Schedule Vas art doppler lwr bilat mult lev/PVR Vascular Ultrasound Routine Cigarette smoker Severe claudication ([facility]) Expected: 02/27/2025, Expires: 08/30/2026 documented as of this encounter Visit Diagnoses Diagnosis Cigarette smoker- Primary Tobacco use disorder Severe claudication Lumbar stenosis with neurogenic claudication documented in this encounter
--- OUTSIDE RECORDS SUMMARY | 2025-03-04 04:00 | XMS_ITS ---
Author Organization The [facility] in [place] Address [address] [place] [address] Care Team Providers Care Marker Shipments Name Role Phone Fernandez Multani Primary Care Provider [phone] Allergies Allergen (clinical drug ingredient) Drug/Non Drug [...] Problem COPD - Chronic obstructive pulmonary disease (25376685) COPD (chronic obstructive pulmonary disease) (J44.9) Active confirmed Vital Signs Weight 141.6 lbs 03/04/2025 Height 66 in 03/04/2025 Blood pressure systolic 138 mm Hg 03/04/20 25 Blood pressure diastolic 78 mm Hg 025 BMI 22.85 kg/m2 03/04/2025 Encounters Encounter Location Date Provider Diagnosis [facility] [address] [place] [address] 03/04/2025 Fernandez Multani COPD (chronic obstructive pulmonary disease) J44.9 ; Well adult Z00.00 ; Benign essential hypertension I10 ; 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 ([facility]) E11.00 and Pure hypercholesterolemia, unspecified E78.00 Assessments Encounter Date Diagnosis (ICD Code) Assessment Notes Treatment Notes Treatment Clinical Notes Section Notes 03/04/2025 COPD (chronic obstructive pulmonary disease) (ICD-10 - J44.9) ct lungs screening 03/04/2025 Well adult (ICD-10 - Z00.00) 03/04/2025 Benign essential hypertension (ICD-10 - I10) stabel here 03/04/2025 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 Yearly check up. * HPI: G eneral: chol - on [...] enies. S wollen joints d enies. 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 * Surgical History: R eplaced bone in jaw , Bolts in bilat feet , Cardiac stents 5 or 6 . * Hospitalization/Major Diagno stic Procedure: wesley ramos , surgery . * Family History: F ather: , did [...] I nterpretation N egative * Medications: T aking Amitriptyline HCl 50 MG Tablet 1-2 tablet at bedtime Orally Once a day , Taking Clopidogrel Bisulfate 75 MG Tablet TAKE 1 TABLET BY MOUTH EVERY DAY , Taking Glimepiride 4 MG Tablet TAKE 1 TABLET BY MOUTH TWICE A DAY , Taking Jardiance(Empagliflozin) 25 MG Tablet TAKE 1 TABLET BY MOUTH EVERY DAY FOR 30 DAYS , Taking metFORMIN HCl 500 MG Tablet 1 tablet with a meal Orally BID , Taking Metoprolol Tartrate 25 MG Tablet TAKE 1 TABLET BY MOUTH TWICE A DAY , Taking Protonix(Pantoprazole Sodium) 40 MG Tablet Delayed Release 1 tablet Orally Once a day , Taking Rosuvastatin Calcium 5 MG Tablet TAKE 1 TABLET BY MOUTH EVERY DAY FOR 30 DAYS , Medication List reviewed and reconciled with the patient * Allergies: P enicillin: syncope. Objective: * Vitals: W t:141.6lbs, Ht: 66 [...] pulmonary disease) - J44.9 (Primary) 2 . W ell adult - Z00.00 3 . 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 P ure hypercholesterolemia, unspecified - E78.00 Plan: * Treatment: 2. W ell adult L AB: HEMOGLOBIN A1C (GLYCO) L AB: LIPID PANEL (CHOL/TRIG/HDL/LDL) L AB: URIC ACID L AB: STOOL OCCULT BLOOD L AB: THYROID PANEL (T4/TSH/FREE T3) L AB: PSA, SCREENING L AB: CMP (COMP MET [facility]) w/eGFR CKD-EPI L AB: CBC WITH DIFF 3. B enign essential hypertension Notes: stabel here 4. T ype 2 diab w hyprosm w/o nonket hyprgly-hypros coma ([facility]) Notes: not checking at home 5. P ure hypercholesterolemia, unspecified Notes: follow up on labs * * Electronic signature of Fernandez Multani MD, [id number] on 03/05/2025 at 08:22 AM EDT Sign off status: Pending Visit Status: C HK (Check Out) * Provider: Wesley Multani ([facility])MD Date: 03/04/2025 Generated for Printi ng/Faoriong/eTransmitting on: 03/05/2025 08:22 AM EDT History and Physical Notes * [...]
--- OUTSIDE RECORDS SUMMARY | 2025-03-05 08:23 | XMS_ITS | Patient Health Record ---
Author Organization [facility] [place] Address [address] [place] [address] Care Team Providers Care Garage Hand Name Role Phone Fernandez Navarro Primary Care Provider Allergies Allergen (clinical drug ingredient) Drug/Non Drug Allergy documented on EMR Reaction Allergy Type Onset Date Status Penicillin syncope Drug Allergy Active Results Component Value Reference Range Notes CT abdomen pelvis wo con Reviewed date:12/26/2024 03:34:27 PM Interpretation: Performing Lab: Notes/Report: Source Facility: [place] [address] CT Scan Report Signed Patient: LIONEL LANDIN MR#: [id number] : 1960 Acct:[id number] Age/Sex: 64 / M ADM Date: 12/26/24 Loc: LAB Attending Dr: Myrna Navarro M.D. Ordering Physician: Myrna Navarro M.D. Date of Service: 12/26/24 Procedure(s): CT abdomen pelvis wo/w con Accession Number(s): [id number] cc: Myrna Navarro M.D. [place] [id number] Patient Name: LIONEL LANDIN MRN: [id number] date: 1960 Sex: M Assigned Patient Location: LAB Current Patient Location: LAB Accession/Order Number: [id number] Exam Date: 12/26/2024 13:35 Report Date: 12/26/2024 13:51 At the request of: MYNRA NAVARRO MD Procedure: CT abdomen pelvis wo/w [...] Chester M.D. 12/26/2024 1:51 PM Dictation Location: [place] [address] Electronically authenticated by: [id number] Y Date: 12/26/2024 13:51 Dictated By: Cirilo Chester M.D. Signed By: 12/26/24 1354 DD/ 1351 TD/TT: Inventory Worker: [place] [address] CT Scan Report Signed Patient: JAI LANDIN MR#: [id number] : 1960 Acct:[id number] Age/Sex: 64 / M ADM Date: 12/26/24 Loc: LAB Attending Dr: Brenda Navarro M.D. Ordering Physician: Myrna Navarro M.D. Date of Service: 12/26/24 Procedure(s): CT abd omen pelvis wo/w con Accession Number(s): [id number] cc: Myrna Navarro M.D. [place] [id number] Patient Name: LIONEL LANDIN MRN: [id number] date: 1960 Sex: M Assigned Patient Location: LAB Current Patient Loca tion: LAB Accession/Order Numb er: [id number] Exam Date: 12/26/2024 13:35 Report Date: 12/26/2024 [...] Chester M.D. 12/26/2024 1:51 PM [facility] by: [id number] Y Date: 12/26/2024 13:51 Dictated By: Cirilo Chester M.D. Signed By: 12/26/24 1354 DD/ 1351 TD/TT: Inventory Worker: CREATININE Reviewed date:12/26/2024 03:34:27 PM Interpretation: Performing Lab: Notes/Report: [facility] , Creatinine 1.06 0.70-1.30 mg/dL Estimated GFR ( Roberta >60 >=60 mL/min/1.73m 2 Estimated GFR (Non- Genesis >60 >=60 mL/min/1.73m 2 Performing Lab: see note ML - [facility] LB MR lumbar spine wo con Reviewed date:01/26/2025 12:51:38 PM Interpretation: Performing Lab: Notes/Report: Source Facility: [place] [address] Magnetic Resonance Report Signed Patient: LIONEL LANDIN MR#: [id number] : 1960 Acct:[id number] Age/Sex: 64 / M ADM Date: 01/24/25 Loc: MRI Attending Dr: Say Mazariegos M.D. Ordering Physician: Say Mazariegos M.D. Date of Service: 01/24/25 Procedure(s): MR lumbar spine wo con Accession Number(s): [id number] cc: Myrna Navarro M.D.; Say Mazariegos M.D. [place] [address] Patient Name: LIONEL LANDIN MRN: [id number] date: 1960 Sex: M Assigned Patient Location: MRI Current Patient Location: MRI Accession/Order Number: [id number] Exam Date: 01/24/2025 08:37 Report Date: 01/24/2025 08:52 At the request of: SAY MAZARIEGOS MD Procedure: MR lumbar spine wo con MRI LUMBAR SPINE WITHOUT CONTRAST COMPARISON: Plain films 12/27/2024 CLINICAL DATA: Back pain with radiation to the right leg over the past month. No reported injury. Multiecho imaging in the axial and sagittal plane was performed without contrast. There is minimal retrolisthesis of L5 on S1. Alignment is otherwise maintained. There are no acute compression fractures or marrow edema. There is minor endplate spurring. No paraspinal soft tissue abnormalities are present. From T12-L1 through L2-3, the discs are normal in height and signal intensity. No disc bulge or herniation is visualized. No central or foraminal stenosis is seen. At L3-4, there is mild disco-osteophytic bulging toward the neural foramen. There is also minor facet and ligamentous hypertrophy with mild thecal sac effacement and slight inferior foraminal encroachment. At L4-5, there is mild disc desiccation. Annular disc bulging is visualized with increased signal at the annulus suggesting a tear. There is also a right parasagittal protrusion with cephalad extrusion of disc material. Mild facet and ligamentous hypertrophy is present. There is moderate central stenosis. There is impingement of the exiting L4 and traversing L5 nerve roots on the right. There is moderate foraminal narrowing bilaterally. At the lumbosacral junction, there is disc desiccation. There is annular disc bulging asymmetric from the right parasagittal region extending through the neural foramen. Bilateral facet hypertrophy is seen. There is minor thecal sac effacement and impingement of the traversing left S1 nerve root. Mild to moderate left and moderate to severe right foraminal encroachment is noted. 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 Impression dictated by: Nellie Montes M.D. 01/24/2025 8:52 AM Dictation Location: [place] [address] Electronically authenticated by: [id number] Y Date: 01/24/2025 08:52 Dictated By: Nellie Montes M.D. Signed By: 01/24/25 0854 DD/ 0852 TD/TT: Inventory Worker: [place] [address] Magnetic Resonance Report Signed Patient: JAI LANDIN MR#: [id number] : 1960 Acct:[id number] Age/Sex: 64 / M ADM Date: 01/24/25 Loc: MRI Attending Dr: Say Mazariegos M.D. Ordering Physician: Say Mazariegos M.D. Date of Service: 01/24/25 Procedure(s): MR lum bar spine wo con Accession Number(s): [id number] cc: Myrna Navarro M.D. ; Say Mazariegos M.D. [place] [address] Patient Name: LIONEL LANDIN MRN: [facility]:[id number] date: 1960 Sex: M Assigned Patient Location: MRI Current Patient Loca tion: MRI Accession/Order Numb er: [id number] Exam Date: 01/24/2025 08:37 Report Date: 01/24/2025 08:52 At the request of: SAY MAZARIEGOS MD Procedure: MR lumbar spine wo con MRI LUMBAR SPINE WIT HOUT CONTRAST COMPARISON: Plain fi lms 12/27/2024 CLINICAL DATA: Back pain with radiation to the right leg over the past month. No reported injury. Multiecho imaging in the axial and sagittal plane was performed without contrast. There is minimal retrolisthesis of L5 on S1. Alignment is otherwise maintained. There ar e no acute compression fractures or marrow edema. There is minor endplate spurring. No paraspinal soft tissue abnormalities are present. From T12-L1 through L2-3, the discs are normal in height and signal intensity. No disc bulge or herniation is visualized. No central or foraminal stenosis is seen. At L3-4, there is mi ld disco-osteophytic bulging toward the neural foramen. There is also minor facet and ligamentous hypertrophy with mild thecal sac effacement and sligh t inferior foraminal encroachment. At L4-5, there is mi ld disc desiccation. Annular disc bulging is visualized with increased signa l at the annulus suggesting a tear. There is also a right parasagittal protrus ion with cephalad extrusion of disc material. Mild facet and ligamentous hypertrophy is present. There is moderate central stenosis. There is impingement of the exiting L4 and traversing L5 nerve roots on the right. There is mode rate foraminal narrowing bilaterally. At the lumbosacral junction, there is disc desiccation. There is annular disc bulging asymmetric f rom the right parasagittal region extending through the neural foramen. Bila teral facet hypertrophy is seen. There is minor thecal sac effacement and impingement of the traversing left S1 nerve root. Mild to moderate left and moderate to severe right foraminal encroachment is noted. M R/MR lumbar spine wo con IMPRESSION: DISCOVERTEBRAL DEGENERATIVE CHANGES AT L4-5 AND L5-S1 WITH ASSOCIATED STENOSIS, DESCRIBED. Impression dictated by: Nellie Montes M.D. 01/24/2025 8:52 AM Dictation Location: [place] [address] Electronically authenticated by: [id number] Date: 01/24/2025 08:52 Dictated By: Nellie Montes M.D. Signed By: 01/24/25 0854 DD/ 0852 TD/TT: Inventory Worker: XR lumbar spine 2-3V Reviewed date:12/29/2024 10:55:57 PM Interpretation: Performing Lab: Notes/Report: Source Facility: [place] [address] XRay Report Signed Patient: LIONEL LANDIN MR#: [id number] : 1960 Acct:[id number] Age/Sex: 64 / M ADM Date: 12/27/24 Loc: RAD Attending Dr: Myrna Navarro M.D. Ordering Physician: Myrna Navarro M.D. Date of Service: 12/27/24 Procedure(s): XR lumbar spine 2-3V Accession Number(s): [id number] cc: Myrna Navarro M.D. [place] [id number] Patient Name: LIONEL LANDIN MRN: [id number] date: 1960 Sex: M Assigned Patient Location: RAD Current Patient Location: RAD Accession/Order Number: [id number] Exam Date: 12/27/2024 10:36 Report Date: 12/27/2024 [...] Chester M.D. 12/27/2024 10:40 AM Dictation Location: [place] [address] Electronically authenticated by: [id number] Y Date: 12/27/2024 10:40 Dictated By: Cirilo Chester M.D. Signed By: 12/27/24 1043 DD/ 1040 TD/TT: Inventory Worker: [place] [address] XRay Report Signed Patient: JAI LANDIN MR#: [id number] : 1960 Acct:[id number] Age/Sex: 64 / M ADM Date: 12/27/24 Loc: RAD Attending Dr: Brenda Navarro M.D. Ordering Physician: Myrna Navarro M.D. Date of Service: 12/27/24 Procedure(s): XR lum bar spine 2-3V Accession Number(s): [id number] cc: Myrna Navarro M.D. [place] [id number] Patient Name: LIONEL LANDIN MRN: [id number] date: 1960 Sex: M Assigned Patient Location: RAD Current Patient Loca tion: RAD Accession/Order Numb er: [id number] Exam Date: 12/27/2024 10:36 Report Date: 12/27/2024 [...] Chester M.D. 12/27/2024 10:40 AM Dictation Location: [place] [address] Electronically authenticated by: [id number] Y Date: 12/27/2024 10:40 Dictated By: Cirilo Chester M.D. Signed By: 12/27/24 1043 DD/ 1040 TD/TT: Inventory Worker: VALENTE CAMERON ([id number]) - IN OFFICE Reviewed date:12/26/2024 03:34:27 PM Interpretation: Performing Lab: Notes/Report: COLOR bright yellow CLARITY clear GLUCOSE 1000 BILIRUBIN neg KETONE neg SPECIFIC GRAVITY 1.005 BLOOD neg PH 5 PROTEIN neg UROBILINOGEN neg NITRITE neg LEUKOCYTE ESTERASE neg Reason For Referral Diagnosis 1 Low back pain at [facility] (M54.50) Referral Organization [facility] Referring Provider First Name Fernandez Referring Provider Last Name Nerissa Referring Provider Speciality Family Med icine Referred Provider Say Jennings Referred Provider Specialty Orthopedic S urgery Referral Priority Routine Reason second opinion Diagnosis 1 Lumbar stenosis (M48 .061) Diagnosis 2 Lumbar disc disorder (M51.9) Referral Organization [facility] Referring Provider First Name Fernandez Referring Provider Last Name Nerissa Referring Provider Speciality [facility] kenneth Referred Provider Del Lee Referred Provider Specialty Neurosurgery Referral Priority Routine Medications Medication SIG (Take, Route, Frequency, Duration) Notes Start Date End Date Status Rosuvastatin Calcium 5 MG TAKE 1 TABLET BY MOUTH EVERY DAY FOR 30 DAYS for 90 days Active Protonix 40 MG 1 tablet Orally Once a day for 30 days 12/20/2024 Active Clopidogrel Bisulfate 75 MG TAKE 1 TABLE T BY MOUTH EVERY DAY for 90 Active Amitriptyline HCl 50 MG 1-2 tablet [...] TH TWICE A DAY for 90 Active Social History Tobacco Use: Social History [...] Problem COPD - Chronic obstructive pulmonary disease (34346231) COPD (chronic obstructive pulmonary disease) (J44.9) Active confirmed Problem Coronary artery dise ase (19337329) CAD (coronary artery disease) (I25.10) Active confirmed Problem Benign essential hypertension (5101801) Benign essential hypertension (I10) Active confirmed Problem Well adult (983494544) Well adul t (Z00.00) Active confirmed Problem Dysphagia (42337688) Dysphagia (R13.10) Active confirmed Problem Flank pain (234084094) Flank annalise n (R10.9) Active confirmed Problem Right upper quadrant pain (014338058) Abdominal pain, RUQ (R10.11) Active confirmed Problem Gastrointestinal hemorrhage (81081777) GI bleed (K92.2) Active confirmed Problem History of hematuria (870652708) H/O hematuria (Z87.448) Active confirmed Problem S/P PTCA (percutaneous transluminal coronary angioplasty) (Z98.61) Active confirmed Problem Hyperosmolarity due to secondary diabetes mellitus (106712009861587) 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 (N[facility]) (E11.00) Active confirmed Problem Shoulder impingement syndrome (677413682) Shoulder impingement syndrome (M75.40) Active confirmed Problem Disorder of lumbar d isc (827868624) Lumbar disc disorder (M51.9) Active confirmed Problem Arterial disease (435604014) Arterial disease (I77.9) Active confirmed Problem Pure hypercholesterolemia (922933831) Pure hypercholester olemia, unspecified (E78.00) Active confirmed Problem Lumbar spinal stenos is (50422254) Lumbar stenosis (M48.061) Active confirmed Vital Signs Blood pressure diastolic 78 mm Hg 03/04/2025 Height 66 in 03/04/2025 Blood pressure systolic 138 mm Hg 03/04/2025 Weight 141.6 lbs 03/04/2025 BMI 22.85 kg/m2 03/04/2025 Encounters Encounter Location Date Provider Diagnosis [place] [address] [place] [address] 02/25/2025 Fernandez Navarro [place] [address] [place] [address] 11/05/2024 Fernandez Palafoxy CAD (coronary artery disease) I25.10 [place] [address] [place] [address] 12/26/2024 Fernandez [place] Low back pain at multiple sites M54.50 [facility] [address] [place] [address] 12/29/2024 Fernandez [place] Low back pain at multiple sites M54.50 [facility] [address] [place] [address] 01/22/2025 Fernandez Palafoxy [facility] [address] [place] [address] 01/26/2025 Fernandez [place] Lumbar stenosis M48. 061 and Lumbar disc disorder M51.9 [facility] [address] [place] [address] 03/04/2025 Fernandez Palafoxy COPD (chronic obstructive pulmonary disease) J44.9 ; Well adult Z00.00 ; Benign essential hypertension I10 ; 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 ([facility]) E11.00 and Pure hypercholesterolemia, unspecified E78.00 [facility] [address] [place] [address] 12/20/2024 Fernandez [place] GI bleed K92.2 and F lank pain R10.9 Assessments Encounter Date Diagnosis (ICD Code) Assessment Notes Treatment Notes Treatment Clinical Notes Section Notes 12/20/2024 GI bleed (ICD-10 - K92.2) 12/20/2024 Flank pain (ICD-10 - R10.9) 03/04/2025 COPD (chronic obstructive pulmonary disease) (ICD-10 - J44.9) ct lungs screening 03/04/2025 Well adult (ICD-10 - Z00.00) 11/05/2024 CAD (coronary artery disease) (ICD-10 - I25.10) 12/26/2024 Low back pain at multiple sites (ICD-10 - M54.50) 12/29/2024 Low back pain at multiple sites (ICD-10 - M54.50) 01/26/2025 Lumbar stenosis (ICD-10 - M48.061) 01/26/2025 Lumbar disc disorder (ICD-10 - M51.9) 03/04/2025 Benign essential hypertension (ICD-10 - I10) stabel here 03/04/2025 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 (N[facility]) (ICD-10 - E11.00) not checking at home 03/04/2025 Pure hypercholesterole misty, unspecified (ICD-10 - E78.00) follow up on labs Plan Of Treatment Pending Test Test Name Order Date CMP (COMPLETE METABOLIC PANEL) 3 CMP (COMPLETE METABOLIC PANEL) 4 HEMOGLOBIN A1C (GLYCO) 12/29/2022 HEMOGLOBIN A1C (GLYCO) 01/15/2024 HEMOGLOBIN A1C (GLYCO) 03/04/2025 LIPID PANEL (CHOL/TRIG/HDL/LDL) 03/04/20 25 LIPID PANEL (CHOL/TRIG/HDL/LDL) 01/15/20 24 LIPID PANEL (CHOL/TRIG/HDL/LDL) 12/30/19 23 CBC WITH DIFF 12/29/2022 CBC WITH DIFF 01/15/2024 PSA, PROSTATE-SPECIFIC ANTIGEN 3 URIC ACID 12/29/2022 URIC ACID 03/04/2025 CT Chest Low Dose for Screening* 023 PSA, TOTAL 01/15/2024 STOOL OCCULT BLOOD 01/15/2024 STOOL OCCULT BLOOD 12/29/2022 STOOL OCCULT BLOOD 03/04/2025 CT ABD and PELV W CON 12/20/2024 CT ABD and PELVIS WO CON 12/20/2024 US ARTERY LEG ACE 01/23/2024 XR LSPINE 2_3 VIEWS 12/26/2024 THYROID PANEL (T4/TSH/FREE T3) 5 THYROID PANEL (T4/TSH/FREE T3) 4 THYROID PANEL (T4/TSH/FREE T3) 3 PSA, SCREENING 03/04/2025 VASC ANKLE BRACHIAL INDEX (PIO) WITHOUT EXERCISE 01/15/2024 CT CHEST LOW DOSE (LDCT) 03/04/2025 CMP (COMP MET [place]) w/eGFR CKD-EPI 2024 CBC WITH DIFF 03/04/2025 Insurance Providers Payer Name Payer Address Payer Phone Subscriber Number Group Number Insured Name Patient Relationship to Insured Coverage Start Date Coverage End Date [place]IC[place] [address] [place] [address] [id number] Landin Lionel Self - patient is the insured MEDICAID [facility] 2ND INS [address] OFF[place] OF [place], [place] [id number] [phone] [id number] LandinLionel Self - patient is the insured Medical [...]
--- OUTSIDE RECORDS SUMMARY | 2025-03-05 08:23 | XMS_ITS | Encounter Summary ---
Author Organization [facility] Address [id number] [address] [place] [address] Care Team Providers Care Assistant Field Hockey Coach Name Role Phone Unavailable Primary Care Provider Unavailabl e Encounter Details Date Type Department Care Team (Latest Contact Info) Description 02/27/2025 Travel Social History Tobacco Use Types Packs/Day Years Used Date Smoking Tobacco: Every Day Cigarettes 0.5 53.6 Started: 1971 Smokeless Tobacco: Current Alcohol Use Standard Drinks/Week Comments Defer 0 [...] Info) Description 03/07/2025 1:00 PM EDT Appointment [facility] - Vascular [address] [place] [address] Lynn Finnegan MD [address], [address] [place] [address] 03/20/2025 9:40 AM EDT Office Visit [facility] [address] [place] [address] Lynn Finnegan MD [address], [address] [place] [address] documented as of this encounter Visit Diagnoses Not on filedocumented in this encounter
--- OUTSIDE RECORDS SUMMARY | 2025-03-05 08:23 | XMS_ITS | Encounter Summary ---
Author Organization [facility] Address [id number] [address] [place] [address] Care Team Providers Care Legal Researcher Name Role Phone Unavailable Primary Care Provider Unavailabl e Encounter Details Date Type Department Care Team ([facility] Contact Info) Description 01/31/2024 Orders Only [facility] External Film Storage [facility] [place] [address] Transcribe, Orders Support User Pain (Primary [...] Upcoming Encounters Date Type Department Care Team ([facility] Contact Info) Description 03/07/2025 1:00 PM EDT Appointment [facility] - Vascular [address] [place] [address] Lynn Finnegan MD [address], [address] [address] 03/20/2025 9:40 AM EDT Office Visit [facility] [place] [address] Lynn Finnegan MD [address], [address] [place] [address] documented as of this encounter Results * Vas art duplex lwr bilateral (01/26/2024 7:10 AM EDT) us Scanning Provider External CV VASCULAR ORDERABLE S Final Result Performing Organization Address City/[facility]/ZIP Co de Phone Number [employer] * Vas art digit limited single lower (01/18/2024 9:55 AM EDT) us Scanning Provider External CV VASCULAR ORDERABLE S Final Result [employer] documented in this encounter Visit Diagnoses Diagnosis Pain- Primary Generalized pain documented in this encounter
--- OUTSIDE RECORDS SUMMARY | 2025-03-05 08:23 | XMS_ITS | Clinical Summary ---
Demographics Address [address] [place] [address] Home Phone Preferred Language ENG Marital Status Christian Affiliation Unknown Race Other Race Ethnic Group Unknown Author Organization [facility] Address [address] [place], [place] [id number] Care Team Providers Care Client Service Consultant Name Role Phone Unavailable Primary Care Provider [...] (1 - 2023-25 season) 2024 Influenza Vaccine (#1) 2025 RSV Vaccine (1 - 1-dose 75+ series) 2037 Insurance * Guarantor: Lionel Landin Account Type Relation to Patient Date of Phone Billing Address Personal/Family Self 1960 [address] [place] [address] [facility]
--- OUTSIDE RECORDS SUMMARY | 2025-03-05 08:23 | XMS_ITS | Clinical Summary ---
Author Organization [facility] Address [id number] [address] [place] [address] Care Team Providers Care Galvanizer Name Role Phone Unavailable Primary Care Provider Unavailabl e Allergies Active Allergy Reactions Criticality Noted Date Comments Penicillins Hives 02/01/2024 Sulfamethoxazole-Trimet hoprim Other (See Comments) 10/10/2010 Joint symptoms and [...] Active Problems Problem Noted Date Diagnosed Date Lumbar stenosis with neurogenic claudication Assessment & Plan (02/27/2025 10:30 PM EDT): Follow up with neurospine Chest pain 02/01/2024 Coronary arteriosclerosis 02/01/2024 Disorder of coronary artery 02/01/2024 Generalized ischemic myocardial dysfunction 01/13 Tobacco dependence syndrome 02/01/2024 Cigarette smoker 02/01/2024 Assessment & Plan (02/27/2025 10:29 PM EDT): Counseled on smoking cessation for 4 min Assessment & Plan (02/01/2024 9:40 AM EDT): Counselled for smoking cessation in length, at least 4 min. Severe claudication 02/01/2024 Assessment & Plan (02/27/2025 10:29 PM EDT): PVR as a start, walking and best medical therapy. ASA and statin. Assessment & Plan (02/01/2024 9:40 AM EDT): Smoking cessation, ASA,Crestor, walking program PVR and follow up in a year Dermatitis 11/01/2010 Photosensitive contact dermatitis 11/01/2010 Anxiety 10/10/2010 Encounters Date Type Department Care Team Description 02/27/2025 9:30 AM EDT [facility] [address] [place] [address] Lynn Finnegan MD Cigarette smoker (Primary Dx); Severe claudication; Lumbar stenosis with neurogenic claudication 02/27/2025 Travel 02/13/2025 Travel from Last 3 Months Social History Tobacco Use Types Packs/Day Years [...] EDT Inhaled Oxygen Concentration - - Weight 63.5 kg (140 lb) 02/27/2025 9:24 AM EDT Height 167.6 cm (5' 6 ) 02/01/2024 9:20 AM EDT Body Mass Index 22.6 02/01/2024 9:20 AM EDT Plan of Treatment Upcoming Encounters Date Type Department Care Team (Late st Contact Info) Description 03/07/2025 1:00 PM EDT Appointment [facility] - Vascular [address] [place] [address] Lynn Finnegan MD [address], [address] [place] [address] 03/20/2025 9:40 AM EDT Office Visit [facility] [address] [place] [address] Lynn Finnegan MD [address] [place] [address] Health Maintenance Due Date Last Done Comments Tobacco Counseling 1960 Depression Screening 1974 Zoster (Shingles) Vaccine (1 of 2) 2012 Influenza Vaccine 04/14/2025 Adult BMI Screening 02/27/2026 02/27/2025 Tobacco Screening 02/27/2026 02/27/2025 DTaP,Tdap and Td Vaccines (2 - Td or Tdap) 11/24/2034 11/24/2024 Medical Devices Not on file Insurance MEDICAID [place] MEDICARE
--- OUTSIDE RECORDS SUMMARY | 2025-03-05 08:23 | XMS_ITS | Clinical Summary ---
Author Organization [facility] Address [address] [place] [address], [address] [place] [address] Care Team Providers Care Provider Relations Coordinator Name Role Phone Unavailable Primary Care Provider [...]
--- OUTSIDE RECORDS SUMMARY | 2025-03-05 08:23 | XMS_ITS | Patient Health Record ---
Author Organization [facility] Address [address] [place] [address] Care Team Providers Care Headline Writer Name Role Phone Marshall Multani [facility] Damaris Kumari Unavailable [phone] Sheila Spaulding Unavailable [phone] Reason For Referral Reason NO AUTH REQ......... ...................NOT SCHEDULED................................[facility] MRI LUMBAR TO BE DONE AT [facility] Diagnosis 1 Degeneration of inte rvertebral disc of lumbar region with discogenic back pain and lower extremity pain (M51.362) Referral Organization [facility] Referring Provider First Name Damaris Referring Provider Last Name [facility] Referring Provider Speciality Orthopedic Surgery [facility] Referred Address [place], [place], Procedure 1 MRI Lumbar Spine w/o Dye ([id number]) General Notes Ely Xavier 2024 09:42:26 AM [...] Problem Status W/U Status Risk Notes Problem [id number] Degeneration of intervertebral disc of lumbosacral region with discogenic back pain and lower extremity pain (M51.372) Active confirmed Vital Signs Height 5'6 in 01/17/2025 Weight 154 lbs 01/17/2025 BMI 24.85 01/17/2025 Encounters Encounter Location Date Provider Diagnosis [facility] [address] [place] [address] [place] [address] [facility]bral disc of lumbosacral region with discogenic back pain and lower extremity pain M51.372 Assessments Encounter Date Diagnosis (ICD Code) Assessment Notes Treatment Notes Treatment Clinical Notes Section Notes 01/17/2025 Degeneration of intervertebral disc of lumbosacral region with discogenic back pain and lower extremity pain (ICD-10 - M51.372) 1. L1-S1 degenerative disc disease with radiculopathy, [...] Lumbar spine 2v flex and ext - 52057 01/2025 MRI : Lumbosacral Spine W/O Contrast - 7 2148 01/17/2025 Insurance Providers Payer Name Payer Address Payer Phone Subscriber Number Group Number Insured Name Patient Relationship to Insured Coverage Start Date Coverage End Date [place] [address] [place] [address] [id number] MARINO GARCES Self - patient is the insured 5 [facility] [address] [place] [address] [id number] MARINO GARCES Self - patient is the insured 5
--- OUTSIDE RECORDS SUMMARY | 2025-03-05 08:27 | XMS_ITS | CCD ---
Author Organization [facility] Care Team Providers Care Implement Mechanic Name Role Phone DR MYRNA MULTANI Consulting [...] Unavailable FROILAN, DR LESLIE Miramontes Consulting Unavailable Unavailable Primary Care Provider Unavailabl e Unavailable Primary Care Provider UnavailLYNN Estevez Attending Unavailable LYNN FINNEGAN Attending Unavailable Allergies Allergy Classification Reported Allergen(s) Allergy Type Date of Onset Reaction(s) Facility (1 source) Penicillin Drug Allergy [facility] (4 sources) Penicillins; Translations: [PENICILLINS] Propensity to adverse reactions to drug 02-01-20 [facility] (5 sources) Sulfamethoxazole / Trimethoprim; Translations: [SULFAMETHOXAZOLE-T RIMETHOPRIM] Drug Allergy 10-10-19 11 Other (See Comments) [facility] (1 source) Penicillins Propensity to adverse reactions to drug 02-01-20 [facility] Medications Current Medications Medication Drug Class(es) Dates Sig (Normalized) Sig (Original) aspirin 325 mg oral tablet (4 sources) Platelet Aggregation Inhibitor, Nonsteroidal Anti-inflammatory Drug take 1 tablet by mouth every six hours as needed aspirin 325 mg tablet Take 1 tablet (325 mg total) by mouth every 6 (six) hours as needed. Active ibuprofen 200 mg oral tablet (4 sources) Nonsteroidal Anti-inflammatory Drug take 1 tablet by mouth every six hours as needed ibuprofen (AdviL) 200 mg tablet Take 1 tablet (200 mg total) by mouth every 6 (six) hours as needed. Active metoprolol tartrate 25 mg oral tablet (4 sources) beta-Adrenergic Reyes take 1 tablet by mouth in the morning, then take 1 tablet by mouth at bedtime metoprolol tartrate (LOPRESSOR) 25 mg tablet Take 1 tablet (25 mg total) by mouth in the morning and 1 tablet (25 mg total) before bedtime. Active pioglitazone 15 mg oral tablet (4 sources) Peroxisome Proliferator Receptor alpha Agonist, Peroxisome Proliferator Receptor gamma Agonist, Thiazolidinedione Start: 01-15-2024 take 1 tablet by mouth in the morning pioglitazone (ACTOS) 15 mg tablet Take 1 tablet (15 mg total) by mouth in the morning. 01/15/2024 Active rosuvastatin calcium 5 mg oral tablet (4 sources) HMG-CoA Reductase Inhibitor Start: 01-12-2024 take 1 tablet by mouth in the morning rosuvastatin (CRESTOR) 5 mg tablet Take 1 tablet (5 mg total) by mouth in the morning. 01/12/2024 Active varenicline 0.5 mg oral tablet (4 sources) Partial Cholinergic Nicotinic Agonist take 1 tablet by mouth once in the morning varenicline (CHANTIX STARTING MONTH BOX) 0.5 mg (11)- 1 mg (42) tablet Take 0.5 mg by mouth in the morning and 0.5 mg before bedtime. Active Problems Active Problems Problem Classification Problem Date Documented Date Episodic/Chronic Anxiety disorders (4 sources) Anxiety; Translations: [Anxiety disorder, unspecified] Onset: 10-10-2010 02-01-2024 Chronic Coronary atherosclerosis and other heart disease (13 sources) Atherosclerotic heart disease of [place] coronary artery without angina pectoris; Translations: [Coronary [...] (primary) hypertension; Translations: [ESSENTIAL PRIMARY HYPERTENSION] Onset: 02-28-2022 Chronic Other connective tissue disease (4 sources) Impingement syndrome of right shoulder; Translations: [IMPINGEMENT SYNDROME RIGHT SHOULDER] Onset: 01-18-2022 Episodic Peripheral and visceral atherosclerosis (8 sources) Intermittent claudication; Translations: [Peripheral vascular disease, unspecified] Onset: 02-01-2024 02-01-2024 Chronic Spondylosis; intervertebral disc disorders; other back problems (2 sources) Spinal stenosis of lumbar region; Translations: [Spinal stenosis, lumbar region with neurogenic claudication] Onset: 02-27-2025 02-27-2025 Episodic Sprains and strains (1 source) Superior glenoid labrum lesion of right shoulder, initial encounter; Translations: [SUP GLND LABRUM LES RT SHLDR INIT] Onset: 01-20-2022 Episodic Substance-related disorders (12 sources) Tobacco dependence syndrome; Translations: [Nicotine dependence, unspecified, uncomplicated] Onset: 02-01-2024 02-01-2024 Chronic Unclassified (1 source) 1 year follow up for limb ischemia with Vas art duplex lwr Onset: 02-27-2025 Past or Other Problems Problem Classification Problem Date Documented Da te Episodic/Chronic Allergic reactions (8 sources) Inflammatory dermatosis; Translations: [Dermatitis, unspecified] Onset: 11-01-2010 02-01-2024 Episodic Coronary atherosclerosis and other heart disease (1 source) Coronary angioplasty status; Translations: [CORONARY ANGIOPLASTY STATUS] Onset: 10-11-2021 Episodic Diabetes mellitus without complication (1 source) Other abnormal glucose; Translations: [OTHER ABNORMAL GLUCOSE] Onset: 10-11-2021 Episodic Nonspecific chest pain (4 sources) Chest pain; Translations: [Chest pain, unspecified] [...] by: KASSIE MANNING Date: 2022-01-18 18:25 Normal [facility] XR ARTHRO SHLD RTon 01-19-20 22 [...] by: KASSIE MANNING Date: 2022-01-18 15:04 Normal [facility] XR FOREIGN BODY EYEon 2021 XR [...] by: KASSIE MANNING Date: 2022-01-18 13:55 Normal [facility] XR CSPINE MIN 4 VIEWSon 12-13 [...] by: LESLIE MCGOVERN Date: 2021-12-31 16:24 Normal [facility] CBC AUTO DIFFon 10-08-2021 BASO # 0.0 103/ul Normal 0.0-0.1 [facility] Comment on above: Performed By: #### C BC #### [facility] [address] [address] [address] Jamia Chin Basophils/100 WBC (Bld) 0.4 % Normal 0.2-2.0 [facility] Comment on above: Performed By: #### C BC #### [facility] [address] [place] [address] Dr. Jamia Chin EO # 0.2 103/ul Normal 0.0-0.7 [facility] Comment on above: Performed By: #### C BC #### [facility] [address] [place] [address] Dr. Jamia Chin Eosinophils/100 WBC (Bld) 2.1 % Normal 0.9-7.0 [facility] Comment on above: Performed By: #### C BC #### [facility] [address] [place] [address] Dr. Jamia Chin Erythrocyte distribution width (RBC) [Ratio] 13.2 % Normal 11.0-15.0 [facility] Comment on above: Performed By: #### C BC #### [facility] [address] [place] [address] Dr. Jamia Chin Hematocrit (Bld) [Volume fraction] 48.3 % Normal 42.0-54.0 [facility] Comment on above: Performed By: #### C BC #### [facility] [address] [place] [address] Dr. Jamia Chin Hemoglobin (Bld) [Mass/Vol] 16.9 g/dL Normal 14.0-18.0 [facility] Comment on above: Performed By: #### C BC #### [facility] [address] [place] [address] Dr. Jamia Chin IG # 0.03 10e3/ul Normal 0.00-0.03 [facility] Comment on above: Performed By: #### C BC #### [facility] [address] [place] [address] Dr. Jamia Chin IG % 0.3 % Normal 0.0-0.5 [facility] Comment on above: Performed By: #### C BC #### [facility] [address] [place] [address] Dr. Jamia Chin LYMPH # 2.0 103/ul Normal 1.2-3.8 [facility] Comment on above: Performed By: #### C BC #### [facility] [address] [place] [address] Dr. Jamia Chin Lymphocytes/100 WBC (Bld) 22.5 % Normal 20.5-60.0 [facility] Comment on above: Performed By: #### C BC #### [facility] [address] [place] [address] Dr. Jamia Chin MANUAL DIFF REQ NO Normal [facility] Comment on above: Performed By: #### C BC #### [facility] [address] [place] [address] Dr. Jamia Chin MCH (RBC) [Entitic mass] 30.7 pg Normal 25.9-34.0 [facility] Comment on above: Performed By: #### C BC #### [facility] [address] [place] [address] Dr. Jamia Chin MCHC (RBC) [Mass/Vol] 35.0 g/dL Normal 29.9-35.2 [facility] Comment on above: Performed By: #### C BC #### [facility] [address] [place] [address] Dr. Jamia Chin MCV (RBC) [Entitic vol] 87.7 fL Normal 80.0-94.0 [facility] Comment on above: Performed By: #### C BC #### [facility] [address] [place] [address] Dr. Jamia Chin MONO # 0.6 103/ul Normal 0.3-0.8 [facility] Comment on above: Performed By: #### C BC #### [facility] [address] [place] [address] Dr. Jamia Chin Monocytes/100 WBC (Bld) 6.7 % Normal 1.7-12.0 [facility] Comment on above: Performed By: #### C BC #### [facility] [address] [place] [address] Dr. Jamia Chin NEUT # 6.2 103/ul Normal 1.4-6.5 [facility] Comment on above: Performed By: #### C BC #### [facility] [address] [address] [address] Jamia Chin Neutrophils/100 WBC (Bld) 68.0 % Normal 43.0-75.0 [facility] Comment on above: Performed By: #### C BC #### [facility] [address] [address] [address] Jamia Chin Platelet mean volume (Bld) [Entitic vol] 9.0 fL Critically low 9.5-13.5 [facility] Comment on above: Performed By: #### C BC #### [facility] [address] [address] [address] Jamia Chin PLT 209 103/ul Normal 150-450 [facility] Comment on above: Performed By: #### C BC #### [facility] [address] [place] [address] Dr. Jamia Chin RBC 5.51 106/ul Normal 4.70-6.10 [facility] Comment on above: Performed By: #### C BC #### [facility] [address] [address] [address] Jamia Chin WBC 9.1 103/ul Normal 4.0-11.0 [facility] Comment on above: Performed By: #### C BC #### [facility] [address] [place] [address] Dr. Jamia Chin GLYCOHEMOGLOBIN A1Con 2021 ADA RECOMMENDATION ADA THERAPEUTIC TARG ET 6.0 - 7.0 ACTION SUGGESTED > 7.0 Normal [facility] Comment on above: Performed By: #### A 1C #### [facility] [address] [place] [address] Dr. Jamia Chin Glucose [Mass/Vol] 226 mg/dL Normal [facility] Comment on above: Performed By: #### A 1C #### [facility] [address] [place] [address] Dr. Jamia Chin HbA1c (Bld) [Mass fraction] 9.5 % Critically high <=6.0 [facility] Comment on above: Performed By: #### A 1C #### [facility] [address] [address] [address] Jamia Chin LIPID PROFILEon 10-08-2021 CHOL-HDL RATIO NORM SEE BELOW Normal [facility] Comment on above: Result Comment: 3.3 - 4.4 LOW RISK 4.4 - 7.1 AVERAGE RISK 7.1 - 11.0 MODERATE RISK >11.0 HIGH RISK Performed By: #### L IPID, CMP #### [facility] [address] [address] [address] Jamia Chin Cholesterol [Mass/Vol] 167 mg/dL Normal <=200 [facility] Comment on above: Performed By: #### L IPID, CMP #### [facility] [address] [address] [address] Jamia Chin Cholesterol in HDL [Mass/Vol] 31 mg/dL Normal [facility] Comment on above: Performed By: #### L IPID, CMP #### [facility] [address] [place] [address] Dr. Jamia Chin Cholesterol in LDL [Mass/Vol] 93.6 mg/dL Normal [facility] Comment on above: Performed By: #### L IPID, CMP #### [facility] [address] [address] [address] Jamia Chin Cholesterol.total/Ch olesterol in HDL [Mass ratio] 5.4 {ratio} Normal [facility] Comment on above: Performed By: #### L IPID, CMP #### [facility] [address] [address] [address] Jamia Chin HDL NORMAL > or = 60 mg/dl - LO W CARDIOVASCULAR RISK <40 mg/dl - HIGH CARDIOVASCULAR RISK Normal [facility] Comment on above: Performed By: #### L IPID, CMP #### [facility] [address] [place] [address] Dr. Jamia Chin LDL CALC NORMAL SEE BELOW Normal [facility] Comment on above: Result Comment: <100 mg/dl OPTIMAL 100 - 129 mg/dl NEAR OR ABOVE OPTIMAL 130 - 159 mg/dl BORDERLINE HIGH 160 - 189 mg/dl HIGH >190 mg/dl VERY HIGH Performed By: #### L IPID, CMP #### [facility] [address] [address] [address] Jamia Chin Triglyceride [Mass/Vol] 212 mg/dL Critically high <=150 [facility] Comment on above: Performed By: #### L IPID, CMP #### [facility] [address] [place] [address] Dr. Jamia Chin VLDL CALC 42.4 mg/dL Normal [facility] Comment on above: Performed By: #### L IPID, CMP #### [facility] [address] [address] [address] Jamia Chin PROF 14(COMP METB)on 022 Albumin [Mass/Vol] 4.3 g/dL Normal 3.5-5.0 [facility] Comment on above: Performed By: #### L IPID, CMP #### [facility] [address] [place] [address] Dr. Jamia Chin Albumin/Globulin [Mass ratio] 1.3 {ratio} Normal [facility] Comment on above: Performed By: #### L IPID, CMP #### [facility] [address] [place] [address] Dr. Jamia Chin ALP [Catalytic activity/Vol] 155 U/L Critically high 38-126 [facility] Comment on above: Performed By: #### L IPID, CMP #### [facility] [address] [place] [address] Dr. Jamia Chin ALT [Catalytic activity/Vol] 76 U/L Critically high 21-72 [facility] Comment on above: Performed By: #### L IPID, CMP #### [facility] [address] [address] [address] Jamia Chin Anion gap [Moles/Vol] 12.2 mmol/L Normal [facility] Comment on above: Performed By: #### L IPID, CMP #### [facility] [address] [place] [address] Dr. Jamia Chin AST [Catalytic activity/Vol] 16 U/L Critically low 17-59 [facility] Comment on above: Performed By: #### L IPID, CMP #### [facility] [address] [address] [address] Jamia Chin Bilirubin [Mass/Vol] 0.6 mg/dL Normal 0.2-1.3 [facility] Comment on above: Performed By: #### L IPID, CMP #### [facility] [address] [place] [address] Dr. Jamia Chin Calcium [Mass/Vol] 9.2 mg/dL Normal 8.4-10.2 [facility] Comment on above: Performed By: #### L IPID, CMP #### [facility] [address] [place] [address] Dr. Jamia Chin Chloride [Moles/Vol] 103 mmol/L Normal 98-107 [facility] Comment on above: Performed By: #### L IPID, CMP #### [facility] [address] [place] [address] Dr. Jamia Chin CO2 [Moles/Vol] 27.1 mmol/L Normal 22.0-30.0 [facility] Comment on above: Performed By: #### L IPID, CMP #### [facility] [address] [place] [address] Dr. Jamia Chin Creatinine [Mass/Vol] 0.91 mg/dL Normal 0.66-1.25 [facility] Comment on above: Performed By: #### L IPID, CMP #### [facility] [address] [place] [address] Dr. Jamia Chin EGFR-AF VENEZUELAN >60 Normal >=60 [facility] Comment on above: Performed By: #### L IPID, CMP #### [facility] [address] [place] [address] Dr. Jamia Chin EGFR-NON AF VENEZUELAN >60 Normal >=60 [facility] Comment on above: Performed By: #### L IPID, CMP #### [facility] [address] [place] [address] Dr. Jamia Chin Globulin (S) [Mass/Vol] 3.3 g/dL Normal [facility] Comment on above: Performed By: #### L IPID, CMP #### [facility] [address] [address] [address] Jamia Chin Glucose [Mass/Vol] 343 mg/dL Critically high 74-106 [facility] Comment on above: Performed By: #### L IPID, CMP #### [facility] [address] [place] [address] Dr. Jamia Chin Potassium [Moles/Vol] 4.3 mmol/L Normal 3.4-5.0 [facility] Comment on above: Performed By: #### L IPID, CMP #### [facility] [address] [place] [address] Dr. Jamia Chin Protein [Mass/Vol] 7.6 g/dL Normal 6.1-8.2 [facility] Comment on above: Performed By: #### L IPID, CMP #### [facility] [address] [place] [address] Dr. Jamia Chin Sodium [Moles/Vol] 138 mmol/L Normal 137-145 [facility] Comment on above: Performed By: #### L IPID, CMP #### [facility] [address] [place] [address] Dr. Jamia Chin Urea nitrogen [Mass/Vol] 19.0 mg/dL Normal 9.0-20.0 [facility] Comment on above: Performed By: #### L IPID, CMP #### [facility] [address] [place] [address] Dr. Jamia Chin Urea nitrogen/Creatinine [Mass ratio] 20.9 mg/mg Normal [facility] Comment on above: Performed By: #### L IPID, CMP #### [facility] [address] [place] [address] Dr. Jamia Chin Vital Signs Date Time Vital Sign Value Performing Clinician Victorina green 02-27-2025 09:24-0400 Body mass index (BMI) [Ratio] 22.6 kg/m2 Lynn Finnegan MD Work Phone: [facility] [employer] 02-27-2025 09:24-0400 Body weight 63.5 kg Lynn Finnegan MD Work Phone: [facility] 02-27-2025 09:24-0400 Diastolic blood pressure 78 mm[Hg] Lynn Finnegan MD Work Phone: [facility] 02-27-2025 09:24-0400 Heart rate 75 /min Lynn Finnegan MD Work Phone: [facility] 02-27-2025 09:24-0400 Systolic blood pressure 160 mm[Hg] Lynn Finnegan MD Work Phone: [facility] 02-01-2024 09:24-0400 Diastolic blood pressure 78 mm[Hg] Lynn Finnegan MD Work Phone: [facility] 02-01-2024 09:24-0400 Systolic blood pressure 140 mm[Hg] Lynn Finnegan MD Work Phone: [facility] 02-01-2024 09:20-0400 Body height 167.6 cm Lynn Finnegan MD Work Phone: [facility] 02-01-2024 09:20-0400 Body mass index (BMI) [Ratio] 23.92 kg/m2 Lynn Finnegan MD Work Phone: [facility] 02-01-2024 09:20-0400 Body weight 67.22 kg Lynn Finnegan MD Work Phone: [facility] 02-01-2024 09:20-0400 Heart rate 70 /min Lynn Finnegan MD Work Phone: [facility] 02-01-2024 09:20-0400 SaO2% (BldA) [Mass fraction] 98 % Lynn Finnegan MD Work Phone: [facility] Encounters Encounter Date Encounter Type Care Provider Facility Start: 02-27-2025 End: 02-27-2025 Office outpatient visit 25 minutes Lynn Finnegan MD Work Phone: [facility] Comment on above: Cigarette smoker (Pr imary Dx); Severe claudication; Lumbar stenosis with neurogenic claudication Start: 02-27-2025 End: 02-27-2025 ambulatory [facility] Start: 02-13-2025 [facility]ulatory [facility] Start: 02-01-2024 End: 02-01-2024 Orders Only Adele Piña [facility] Comment on above: Ischemia of both low er extremities (Primary Dx) Start: 02-01-2024 End: 02-01-2024 Office outpatient new 45 minutes Lynn Finnegan MD Work Phone: [facility] Comment on above: Ischemia of both low er extremities (Primary Dx); Cigarette smoker; Claudication ([facility]) Start: 01-18-2022 End: 01-18-[address] MYRNA MULTANI Facility:[facility] Start: 12-31-2021 End: 01-01-[address] MYRNA MULTANI Facility:[facility] Start: 10-08-2021 End: 10-09-[address] MYRNA MULTANI Facility:[facility] Procedures Date Procedure Procedure Detail Performing Clinician Start: 10-08-[address] WILLIAM MULTANI Comment on above: Performed By: #### [facility] #### [facility] [address] [place] [address] Dr. Jamia Chin Plan of Treatment Date Care Activity Detail Author Start: 11-24-2034 DTaP,Tdap and Td Vac cines (2 - Td or Tdap) DTaP,Tdap and Td Vaccines (2 - Td or Tdap) [facility] Start: 02-27-2026 Adult BMI Screening Adult BMI Screen ing [facility] Start: 02-27-2026 Tobacco Screening Tobacco Screening [facility] Start: 04-14-2025 Influenza vaccination Influenza Vacc ine [facility] Start: 03-20-2025 End: 03-20-2025 Patient encounter procedure 03/20/2025 9:40 AM EDT Office Visit [facility] [address] [place] [address] Lynn Finnegan MD [address], [address] [address] [facility] Start: 03-07-2025 End: 03-07-2025 Patient encounter procedure 03/07/2025 1:00 PM EDT Appointment [facility] [address] [place] [address] Lynn Finnegan MD [address], [facility] [address] [place] [address] [facility] Start: 02-27-2025 End: 08-30-2026 US.doppler Extremity arteries - bilateral for physiologic artery study Vas art doppler lwr bilat mult lev/PVR Vascular Ultrasound Routine Cigarette smoker Severe claudication ([facility]) Expected: 02/27/2025, Expires: 08/30/2026 [facility] Work Phone: Comment on above: Expected: 02/27/2025 , Expires: 08/30/2026 Start: 02-13-2025 End: 02-13-2025 Patient encounter procedure 02/13/2025 8:30 AM EDT Office Visit [facility] [address] [place] [phone] Lynn Finnegan MD [address], [facility] [address] [place] [address] [facility] Start: 01-31-2025 Adult BMI Screening Adult BMI Screen ing [facility] Start: 01-31-2025 Tobacco Screening Tobacco Screening [facility] Start: 01-12-2025 End: 02-11-2025 US.doppler Extremity arteries - bilateral for physiologic artery study Vas art doppler lwr bilat mult lev/PVR Vascular Ultrasound Routine Ischemia of both lower extremities Expected: 01/12/2025, Expires: 02/11/2025 [facility] Work Phone: Comment on above: Expected: 01/12/2025 , Expires: 02/11/2025 Start: 04-14-2024 Influenza vaccination Influenza Vacc ine [facility] Start: 2012 Administration of varicella zoster vaccine Zoster (Shingles) Vaccine (1 of 2) [facility] Start: 1981 DTaP,Tdap and Td Vac cines (1 - Tdap) DTaP,Tdap and Td Vaccines (1 - Tdap) [facility] Start: 1974 Depression Screening Depression Scre ening [facility] Start: 1962 Tobacco Counseling Tobacco Counselin sergio [facility] Payers Date Payer Category Payer Medicaid [id number] 2015 Medicare MEDICARE [id number] 1962 Unknown [id number] 1962 Unknown [id number] 1962 Unknown [id number] 1962 Unknown [id number] 1962 Unknown [id number] 1957 Medicaid [id number] 1957 Medicare [id number] Social History Date Type Detail Facility Start: 08-14-1971 Tobacco smoking stat us WAIS Smokes tobacco daily [facility] Start: 08-14-1971 History of tobacco use Cigarette Smo ker [facility] Start: 01-21-2019 End: 02-01-2024 Cigarettes smoked current (pack per day) - Reported 0.5 [facility] Start: 02-01-2024 Tobacco use and exposure User of smokeless tobacco [facility] Start: 02-01-2024 End: 02-27-2025 Alcoholic beverage intake Defer [facility] Start: 01-21-2019 End: 02-01-2024 Tobacco use panel [facility] Childcare Unknown [facility] Start: 1960 Sex assigned at Not on file P [facility] Start: 03-17-2015 Sex Male (finding) [facility] Clinical Notes 12-31-2021 to 02-27-2025 Assessment & Plan Note - Lynn Finnegan MD - 02/27/2025 10:30 PM EDTAssessment & Plan Note - Lynn Finnegan MD - 02/27/2025 10:30 PM EDTMcammie Finnegan MD - 02/27/2025 9:30 AM EDT Note Date & Type Note Facility 02-27-2025 Evaluation + Plan note Associated Problem(s): Lumbar stenosis with neurogenic claudication Follow up with neurospine [facility] 02-27-2025 Miscellaneous Notes Associated Problem(s): Lumbar stenosis with neurogenic claudication Follow up with neurospine Associated Problem(s): Cigarette smoker Counseled on smoking cessation for 4 min Associated Problem(s): Severe claudication PVR as a start, walking and best medical therapy. ASA and statin. documented in this encounter [facility] 02-27-2025 Evaluation + Plan note Associated Problem(s): Cigarette smoker Counseled on smoking cessation for 4 min [facility] 02-27-2025 Evaluation + Plan note Associated Problem(s): Severe claudication PVR as a start, walking and best medical therapy. ASA and statin. [facility] 02-27-2025 History of Presen t illness Narrative Images [...] Past Medical History: Diagnosis Date Diabetes mellitus ([facility]) Hypertension Myocardial infarction ([facility]) Past Surgical History: Past Surgical History: Procedure [...] Wt 63.5 kg (140 lb) BMI 22.60 kg/m Body mass index is 22.6 kg/m . Physical Exam: Physical Exam Constitutional: [...] Current Assessment & Plan Follow up with neurospine Lionel was seen today for 1 year follow up for limb ischemia with vas art duplex lwr . Diagnoses and all orders for this visit: Cigarette smoker - Vas art doppler lwr bilat mult lev/PVR; Future Severe claudication - Vas art doppler lwr bilat mult lev/PVR; Future Lumbar stenosis with neurogenic claudication Lynn Finnegan MD, SKYLER, RPVI, FSVS, FACS [facility] This note was created with the assistance of a speech recognition program. While intending to generate a timely document that accurately reflects the content of the visit, no guarantee can be provided that every grammatical or spelling mistake has been or will be identified or corrected. Thank you for your understanding. documented in this encounter [facility] 02-01-2024 Miscellaneous Notes A user error has taken place: encounter opened in error, closed for administrative reasons. documented in this encounter [facility] 02-01-2024 Telephone encounter Note A user error has taken place: encounter opened in error, closed for administrative reasons. [facility] 02-01-2024 Evaluation + Plan note Associated Problem(s): Claudication ([facility]) Smoking cessation, ASA,Crestor, walking program PVR and follow up in a year [facility] 02-01-2024 Evaluation + Plan note Associated Problem(s): Cigarette smoker Counselled for smoking cessation in length, at least 4 min. [facility] 02-01-2024 Miscellaneous Notes Associated Problem(s): Claudication ([facility]) Smoking cessation, ASA,Crestor, walking program PVR and follow up in a year Associated Problem(s): Cigarette smoker Counselled for smoking cessation in length, at least 4 min. documented in this encounter [facility] 02-01-2024 History of Presen t illness Narrative [...] in length, at least 4 min. Claudication ([facility]) Current Assessment & Plan Smoking cessation, ASA,Crestor, walking program PVR and follow up in a year Lionel was seen today for leg pain and cold feet. Diagnoses and all orders for this visit: Ischemia of both lower extremities - [facility] [place] [place] Cigarette smoker Claudication ([facility]) Lynn Finnegan MD, SKYLER, RPVI, FSVS, FACS [...] for your understanding. documented in this encounter [facility] 02-01-2024 Instructions Lynn Finnegan MD - 02/01/2024 9:20 AM EDT Are You Ready To Kick The Habit? Free Tobacco Cessation Resources [facility] Services [facility] Centers provide all employees with free tobacco cessation services that include: Counseling to understand nicotine addiction Education about medications that can help you successfully quit Assistance with developing a plan to quit Call to set up an individual appointment or find out when group classes will be held: [facility]: [phone] [facility]: [phone] [facility]: [phone] [facility]: [phone] Quit Smoking Action Plan and Resources [facility] offers an eight-week, online smoking cessation plan to all [facility] employees, regardless of whether [place] is your medical insurance provider. Go to www.whodoyouca.org/employeewell ness and click the Health Risk Assessment and Resources link to get started. In the [employer] menu, click Action Plans instead of Health Risk Assessment to access the Quit Smoking Action Plan. Additional smoking cessation resources are also available to all [facility] employees on the [employer] web page at www.[employer]/quit smoking. [place] Tobacco Cessation Program If [place] is your medical insurance provider, there are more free resources available to you, including: No copays or deductibles on local tobacco cessation counseling services to help you quit Prescription assistance for tobacco cessation medications to help you quit For details about the tobacco cessation program available to [place] members, go to www.[employer] (Search: Tobacco Cessation Program). [place] Tobacco Quit Line 5-974-SVVR-NOW ( ) is a toll-free, telephonic service that helps [place] residents quit smoking and using tobacco. It is staffed by experts who tailor a quit plan for you and provide you with advice. [place] Tobacco Quit Line 8-561-OBRH-NOW ( ) is a toll-free, telephonic service that helps [place] residents quit smoking and using tobacco. It is staffed by experts who tailor a quit plan for you and provide you with advice. Two weeks of nicotine replacement therapy may be provided at no charge, if needed. Additional Resources These national organizations also offer free information and resources to help you quit tobacco: [place] [employer]--www.cancer.org/healthy/ stayawayfromtobacco [place] [employer]--www.heart.org (Search: Quit Smoking) Centers for Disease Control and Prevention--www.cdc.gov/tobacco [place] [employer]--www.lungusa.org documented in this encounter [facility] 12-31-2021 Note PROCEDURE: XR SHOULD ER RT [...] by: LESLIE MCGOVERN Date: 2021-12-31 16:19 [facility] Evaluation note Diagnosis Ischemia of both lower extremities- Primary documented in this encounter [facility] System[facility]* Diagnosis Ischemia of both lower extremities- Primary Cigarette smoker Tobacco use disorder Claudication ([facility]) Unspecified peripheral vascular disease documented in this encounter [facility]* Diagnosis Ischemia of both lower extremities- Primary Cigarette smoker Tobacco use disorder Claudication Unspecified peripheral vascular disease Cigarette smoker- Primary Tobacco use disorder Severe claudication Lumbar stenosis with neurogenic claudication documented in this encounter [facility] SystemInstructionsNot on filedocumented in this encounter [facility] SystemInstructionsNot on filedocumented in this encounter [facility] SystemInstructionsNot on filedocumented in this encounter [facility] Summary Purpose Family History No Family History Records FoundNo Family History Records Found Advance Directives No Advanced Directives Records FoundNo Advanced Directives Records Found Reason for Referral Specialty Diagnoses / Procedures Referred By Contac t Referred To Contact Diagnoses Ischemia of both lower extremities Procedures Vas art doppler lwr bilat mult lev/PVR Lynn Finnegan MD [address], [address] [address] Referral ID Status Reason Start Date Expiration Date V isits Requested Visits Authorized [id number] Pending Review 02/01/2024 01/31/2025 1 1 Additional Source Comments (unrecognized sect ion and content) No Status Records FoundNo Status Records Found INFORMATION SOURCE (unrecogn ized section and content) DATE CREATED AUTHOR 01/20/2022 [facility] DATE CREATED AUTHOR AUTHOR'S ORGANIZ ATION 03/02/2025 [facility] Reason for Visit (unrecogniz ed section and content) Reason Comments Leg Pain Right leg today is a 6 As the day goes on it gets worse Cold Feet Feet get cold and bu rn Specialty Diagnoses / Procedures Referred By Contac t Referred To Contact Vascular Surgery Diagnoses Ischemia of both lower extremities Myrna Multani MD [address] [place] [address] Lynn Finnegan MD [address], [address] [address] Referral ID Status Reason Start Date Expiration Date Visits Requested Visits Authorized [id number] Pending Review Specialty Services Required 01/30/2024 01/29/2025 1 1 Reason Comments 1 year follow up for limb ischemia with Vas art duplex lwr FOR RECORDS PERTAINING TO PATIENTS WHO ARE [...] BE BASED ON THE PRIMARY CLINICAL RECORDS. [facility]. provides no warranty or guarantee of the accuracy or completeness of information in this document.
[2025-03-05 08:38] LABS: Hematocrit 49.3 % (42.0-54.0); Hemoglobin 17.2 g/dL (14.0-18.0); Immature Granulocytes Abs Auto 0.02 10^3/uL (0.00-0.03); Immature Granulocytes Pct Auto 0.3 % (0.0-0.5); Lymphocytes Absolute Auto 1.8 10^3/uL (1.2-3.8); Mean Corpuscular HGB Conc 34.9 g/dL (29.9-35.2); Mean Corpuscular Hemoglobin 30.6 pg (25.9-34.0); Mean Corpuscular Volume 87.7 fL (80.0-94.0); Platelet Count 226 10^3/uL (150-450); Red Blood Count 5.62 10^6/uL (4.70-6.10); White Blood Count 7.9 10^3/uL (4.0-11.0)
[2025-03-05 11:49] LABS: Alanine Aminotransferase 60 U/L (16-63); Albumin Globulin Ratio 1.2; Albumin Level 4.1 g/dL (3.4-5.0); Alkaline Phosphatase 146 U/L (46-116); Anion Gap 15.1; Aspartate Amino Transferase 24 U/L (15-37); Blood Urea Nitrogen 21.0 mg/dL (7.0-18.0); Calcium 9.4 mg/dL (8.5-10.1); Carbon Dioxide 27.6 mmol/L (21.0-32.0); Chloride 104 mmol/L (98-107); Cholesterol 183 mg/dL (<=200); Estimated GFR (African America >60 (>=60 mL/min/1.73m^2); Estimated GFR (Non-African Ame >60 (>=60 mL/min/1.73m^2); Free T3 2.62 pg/mL (2.18-3.98); Globulin 3.3 g/dL; Glucose 267 mg/dL (74-106); HDL Cholesterol 41 mg/dL (40-60); Potassium 4.7 mmol/L (3.5-5.1); Sodium 142 mmol/L (136-145); Thyroid Stimulating Hormone 0.558 uIU/mL (0.358-3.740); Total Protein 7.4 g/dL (6.4-8.2); Triglycerides 102 mg/dL (<=150); Uric Acid 5.1 mg/dL (3.5-7.2); VLDL CHOLESTEROL 20.4 mg/dL
== END 2025-03-05 08:17 | disposition home or self-care (01) ==
LOC: LAB 08:20
PROVIDERS: PCP Family Medicine; Visit Provider Family Medicine
DX: E78.5 Hyperlipidemia, unspecified (principal); R73.09 Other abnormal glucose; M10.9 Gout, unspecified; Z12.12 Encounter for screening for malignant neoplasm of rectum; E03.9 Hypothyroidism, unspecified; I10 Essential (primary) hypertension; Z12.5 Encounter for screening for malignant neoplasm of prostate; R53.83 Other fatigue
CPT/HCPCS: 36415; 80053; 80061; 83036; 84436; 84443; 84481; 84550; 85025; G0103

== ENCOUNTER 2025-03-07 08:28 | Outpatient (OUT) | payer MEDICARE, MEDICAID, SELFPAY ==
--- OUTSIDE RECORDS SUMMARY | 2025-02-27 09:30 | XMS_ITS | Encounter Summary ---
Author Organization [employer] [facility] Address [id number] [address] [place] [address] Care Team Providers Care Senior Electrical Designer Name Role Phone Unavailable Primary Care Provider Unavailabl e Reason for Referral * Vascular (Routine) - Authorized Specialty Diagnoses / Procedures Referred By Contac t Referred To Contact Diagnoses Cigarette smoker Severe claudication Procedures Vas art doppler lwr bilat mult lev/PVR Lynn Finnegan MD [address] [address] Phone: tel: fax: Referral ID Status Reason Start Date Expiration Date V isits Requested Visits Authorized [id number] Authorized 02/27/2025 02/27/2026 1 1 Reason for Visit * Reason Comments 1 year follow up for limb ischemia with Vas art duplex lwr Encounter Details Date Type Department Care Team (Late st Contact Info) Description 02/27/2025 9:30 AM EDT Office Visit [facility] [place] [address] [address] Lynn Finnegan MD [address], [address] [address] Cigarette smoker (Primary Dx); Severe claudication; Lumbar stenosis with neurogenic claudication Social History Tobacco Use Types Packs/Day Years Used Date Smoking Tobacco: Every Day Cigarettes 0.5 53.6 Started: 1969 Smokeless Tobacco: Current Tobacco Cessation:Ready to Q uit: Not Asked; Counseling Given: Not Answered Alcohol Use Standard Drinks/Week Comments Defer 0 [...] on file documented as of this encounter Last Filed Vital Signs Vital Sign Reading Time Taken Comments Blood Pressure 160/78 02/27/2025 9:24 AM EDT Pulse 75 02/27/2025 9:24 AM EDT Temperature - - Respiratory Rate - - Oxygen Saturation - - Inhaled Oxygen Concentration - - Weight 63.5 kg (140 lb) 02/27/2025 9:24 AM EDT Height - - Body Mass Index 22.6 02/01/2024 9:20 AM EDT documented in this encounter Progress Notes * Lynn Finnegan MD - 02/27/2025 9:30 AM EDT Images from the original note were not included. To: No primary care provider on file. HPI: Lionel Landin is a 64 y.o. male with claudication and known peripheral arterial disease. He has symptoms that are concerning for spinal stenosis as well. He is a heavy smoker. He takes aspirin statin. He does not have recent testing. Review of Systems: Review of Systems Constitutional: Negative. HENT: Negative. Respiratory: Negative. Cardiovascular: Negative. Gastrointestinal: Negative. Endocrine: Negative. Genitourinary: Negative. Musculoskeletal: Negative. Skin: Negative. Neurological: Negative. Hematological: Negative. Medications: Current Outpatient Medications on File Prior to Visit Medication Sig Dispense Refill aspirin 325 mg tablet Take 1 tablet (325 mg total) by mouth every 6 (six) hours as needed. ibuprofen (AdviL) 200 mg tablet Take 1 tablet (200 mg total) by mouth every 6 (six) hours as needed. metoprolol tartrate (LOPRESSOR) 25 mg tablet Take 1 tablet (25 mg total) by mouth in the morning and 1 tablet (25 mg total) before bedtime. pioglitazone (ACTOS) 15 mg tablet Take 1 tablet (15 mg total) by mouth in the morning. rosuvastatin (CRESTOR) 5 mg tablet Take 1 tablet (5 mg total) by mouth in the morning. varenicline (CHANTIX STARTING MONTH BOX) 0.5 mg (11)- 1 mg (42) tablet Take 0.5 mg by mouth in the morning and 0.5 mg before bedtime. No current facility-administered medications on file prior to visit. Past Medical History: Past Medical History: Diagnosis Date Diabetes mellitus ([facility]) Hypertension Myocardial infarction ([facility]) Past Surgical History: Past Surgical History: Procedure Laterality Date CARDIAC CATHETERIZATION CORONARY STENT PLACEMENT Social and Family History: Social History Socioeconomic History Marital status: Spouse name: Not on file Number of children: Not on file Years of education: Not on file Highest education level: Not on file Occupational History Not on file Tobacco Use Smoking status: Every Day Current packs/day: 0.50 Average packs/day: 0.5 packs/day for 53.5 years (26.8 ttl pk-yrs) Types: Cigarettes Start date: 1971 Smokeless tobacco: Current Substance and Sexual Activity Alcohol use: Defer Drug use: Yes Types: Medical Marijuana Comment: Gummie to help sleep Sexual activity: Not on file Other Topics Concern Not on file Social History Narrative Not on file Social Drivers of Health Financial Resource Strain: Not on file Food Insecurity: No Food Insecurity (02/01/2024) Hunger Screening Food Insecurity - Worry: Never True Food Insecurity - Inability: Never True Transportation Needs: Not on file Physical Activity: Not on file Stress: Not on file Social Connections: Not on file Interpersonal Safety: Not on file Housing Instability: Not on file No family history on file. Recent Labs: Recent and relative labs were reviewed and interpreted and contributed to the assessment and plan below. Vitals: BP 160/78 Pulse 75 Wt 63.5 kg (140 lb) BMI 22.60 kg/m?? Body mass index is 22.6 kg/m??. Physical Exam: Physical Exam Constitutional: Appearance: Normal [...] content normal. Judgment: Judgment normal. Recent testing: Assessment and Plan: Problem List Cigarette smoker - Primary Current Assessment & Plan Counseled on smoking cessation for 4 min Relevant Orders Vas art doppler lwr bilat mult lev/PVR Severe claudication Current Assessment & Plan PVR as a start, walking and best medical therapy. ASA and statin. Relevant Orders Vas art doppler lwr bilat mult lev/PVR Lumbar stenosis with neurogenic claudication Current Assessment & Plan Follow up with betty Lionel was seen today for 1 year follow up for limb ischemia with vas art duplex lwr . Diagnoses and all orders for this visit: Cigarette smoker - Vas art doppler lwr bilat mult lev/PVR; Future Severe claudication - Vas art doppler lwr bilat mult lev/PVR; Future Lumbar stenosis with neurogenic claudication Lynn Finnegan MD, SKYLER, RPVI, FSVS, FACS [facility] This note was created with the assistance of a speech recognition program. While intending to generate a timely document that accurately reflects the content of the visit, no guarantee can be provided that every grammatical or spelling mistake has been or will be identified or corrected. Thank you for your understanding. documented in this encounter Miscellaneous Notes * Assessment & Plan Note - Lynn Finnegan MD - 02/27/2025 10:30 PM EDT Associated Problem(s): Lumbar stenosis with neurogenic claudication Follow up with betyt * Assessment & Plan Note - Lynn Finnegan MD - 02/27/2025 10:29 PM EDT Associated Problem(s): Cigarette smoker Counseled on smoking cessation for 4 min * Assessment & Plan Note - Lynn Finnegan MD - 02/27/2025 9:47 AM EDT Associated Problem(s): Severe claudication PVR as a start, walking and best medical therapy. ASA and statin. documented in this encounter Plan of Treatment Upcoming Encounters Date Type Department Care Team (Late st Contact Info) Description 03/07/2025 1:00 PM EDT Hospital Encounter [facility] - [facility]ascular [address] [place] [address] Lynn Finnegan MD [address], [facility] [address] [place] [address] 03/20/2025 9:40 AM EDT Office Visit [facility] [address] [place] [address] Lynn Finnegan MD [address], [address] [place] [address] Scheduled Orders Name Type Priority Associated Diagnoses Orde r Schedule Vas art doppler lwr bilat mult lev/PVR Vascular Ultrasound Routine Cigarette smoker Severe claudication ([facility]) Expected: 02/27/2025, Expires: 08/30/2026 documented as of this encounter Visit Diagnoses Diagnosis Cigarette smoker- Primary Tobacco use disorder Severe claudication Lumbar stenosis with neurogenic claudication documented in this encounter
--- OUTSIDE RECORDS SUMMARY | 2025-03-04 04:00 | XMS_ITS ---
Author Organization The [facility] in [place] Address [address] [place] [address] Care Team Providers Care Retail Solar Advisor Name Role Phone Fernandez Multani Primary Care Provider [phone] Allergies Allergen (clinical drug ingredient) Drug/Non Drug Allergy documented on EMR Reaction Allergy Type Onset Date Status Penicillin syncope Drug Allergy Active REASON FOR VISIT yearly check up Medications Medication SIG (Take, Route, Frequency, Duration) Notes Start Date End Date Status Clopidogrel Bisulfate 75 MG TAKE 1 TABLE T BY MOUTH EVERY DAY for 90 Active Metoprolol Tartrate 25 MG TAKE 1 TABLET BY MOUTH TWICE A DAY for 90 Active metFORMIN HCl 500 MG 1 tablet with a jerrod l Orally BID Active Jardiance 25 MG TAKE 1 TABLET BY LYNN TH EVERY DAY FOR 30 DAYS for 30 days Active Glimepiride 4 MG TAKE 1 TABLET BY LYNN TH TWICE A DAY for 90 Active Rosuvastatin Calcium 5 MG TAKE 1 TABLET BY MOUTH EVERY DAY FOR 30 DAYS for 90 days Active Protonix 40 MG 1 tablet Orally Once a day for 30 days 12/20/2024 Active Amitriptyline HCl 50 MG 1-2 tablet at be dtime Orally Once a day for 90 days Active Social History Tobacco Use: Social History Observation Description Date Details (start date - stop date) Current Smoker NA - NA Tobacco Use/Smoking Question Answer Notes Patient is a current every day smoker AUDIT-C (Standard) Question Answer Notes Did you have a drink containing alcohol in the p ast year? No Points 0 Interpretation Negative Problems Problem Type SNOMED Code ICD Code Onset Dates Problem Status W/U Status Risk Notes Problem COPD - Chronic obstructive pulmonary disease (12618418) COPD (chronic obstructive pulmonary disease) (J44.9) Active confirmed Vital Signs Weight 141.6 lbs 03/04/2025 Height 66 in 03/04/2025 Blood pressure systolic 138 mm Hg 03/04/20 25 Blood pressure diastolic 78 mm Hg 025 BMI 22.85 kg/m2 03/04/2025 Encounters Encounter Location Date Provider Diagnosis [facility] [address] [place] [address] 03/04/2025 Fernandez Multani COPD (chronic obstructive pulmonary disease) J44.9 ; Benign essential hypertension I10 ; 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 ([facility]) E11.00 ; Pure hypercholesterolemia, unspecified E78.00 and Well adult Z00.00 Assessments Encounter Date Diagnosis (ICD Code) Assessment Notes Treatment Notes Treatment Clinical Notes Section Notes 03/04/2025 COPD (chronic obstructive pulmonary disease) (ICD-10 - J44.9) ct lungs screening 03/04/2025 Benign essential hypertension (ICD-10 - I10) stabel here 03/04/2025 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 ([facility]) (ICD-10 - E11.00) not checking at home 03/04/2025 Pure hypercholesterole misty, unspecified (ICD-10 - E78.00) follow up on labs 03/04/2025 Well adult (ICD-10 - Z00.00) Plan Of Treatment Treatment Notes Assessment Notes COPD (chronic obstructive pulmonary dise ase) ct lungs screening Benign essential hypertension stabel her e 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 -hypros coma ([facility]) not checking at home Pure hypercholesterolemia, unspecified f ollow up on labs Pending Test Test Name Order Date HEMOGLOBIN A1C (GLYCO) 03/04/2025 LIPID PANEL (CHOL/TRIG/HDL/LDL) 03/04/20 25 URIC ACID 03/04/2025 STOOL OCCULT BLOOD 03/04/2025 THYROID PANEL (T4/TSH/FREE T3) 5 PSA, SCREENING 03/04/2025 CT CHEST LOW DOSE (LDCT) 03/04/2025 CMP (COMP MET [facility]) w/eGFR CKD-EPI 2024 CBC WITH DIFF 03/04/2025 Progress Notes * Lionel LANDIN ADOB:[birth year] (64 yo M)Acc No.[id number]:03/04/2025 Progress Note Patient: Lionel KILPATRICK Provider: Wesley Multani ([facility])MD :1960 A ge:64 Y S ex:Male Date:03/04/2025 Address:[address] [place] [address], [id number] Check In:07:55 AM ESTCheck O ut:09:56 AM EST Subjective: * Chief Complaints: * Y early check up * HPI: G eneral: chol - on med - checing labs dm - not checking raul see wht glyco is htn - stabel her gerd - no symptoms as long as take meds. * ROS: E ENT: hearing changes d enies. v isual changes d enies.?non-healing mouth sores d enies. s wollen glands or neck lumps d enies. h oarseness d enies. s ore throat d enies. d ifficulty swallowing d enies. n ose bleeds d enies. n charlee congestion d enies. e ar ache d enies. e ar discharge?denies. r inging in ears d enies. l ight sensitivity d enies. e ye pain d enies. b lurring d enies. e ye irritation d enies. d ouble vision d enies.?vision loss d enies. G eneral/Constitutional: Sweats: D enies. F atigue d enies. S leep problems d enies. A norexia d enies. M alaise d enies. W eight loss d enies.?Fatigue or Weakness d enies. F ever or Chills d enies. C ardiovascular: Shortness of Breath w/lying flat d enies. L ightheadedness/dizziness d enies. C hest tightness/ heavy pressure d enies. S welling of legs, ankles, or feet d enies. W aking up with shortness of breath d enies. C hest pain denies. P alpitations d enies. W eight gain d enies. R espiratory: Chronic or frequent cough d enies. C oughing up blood?denies. D ifficulty breathing d enies. P roductive cough d enies. S noring?denies. S hortness of breath that awakens from sleep (PND) d enies. C hest pain d enies. S putum production d enies. W heezing d enies. M usculoskeletal: Joint pain d enies. J oint Fluid d enies. B ack pain d enies. K nee pain d enies. N darryl pain d enies. J oint Stiffness d enies. M uscle cramps d enies. W eakness of muscles d enies. A rthritis d enies. M uscle aches d enies. P ain in shoulder(s) d enies. S wollen joints d enies. * Active Problem List I25.10 CAD (coronary artery disease) Modified On:12/25/2022U Status:confirmed I10 Benign essential hyp ertension Modified On:12/29/2022 Status:confirmed Z00.00 Well adult Modified On:12/25/2022U Status:confirmed R13.10 Dysphagia Modified On:12/25/2022U Status:confirmed Z87.448 H/O hematuria Modified On:12/25/2022 Status:confirmed Z98.61 S/P PTCA (percutaneo us transluminal coronary angioplasty) Modified On:12/29/2022U Status:confirmed E11.00 Type 2 diab w hypros m w/o nonket hyprgly-hypros coma ([facility]) Modified On:12/29/2022U Status:confirmed M75.40 Shoulder impingement syndrome Modified On:12/25/2022U Status:confirmed R10.11 Abdominal pain, RUQ Modified On:12/25/2022U Status:confirmed E78.00 Pure hypercholestero lemia, unspecified Modified On:12/25/2022U Status:confirmed I77.9 Arterial disease Modified On:01/23/2024U Status:confirmed K92.2 GI bleed Modified On:12/20/2024/U Status:confirmed R10.9 Flank pain Modified On:12/20/2024/U Status:confirmed M48.061 Lumbar stenosis Modified On:01/27/2025/U Status:confirmed M51.9 Lumbar disc disorder Modified On:01/27/2025/U Status:confirmed J44.9 COPD (chronic obstru ctive pulmonary disease) Modified On:03/04/2025/U Status:confirmed * Medical History: * Surgical History: R eplaced bone in jaw Bolts in bilat feet Cardiac stents 5 or 6 * Hospitalization/Major Diagno stic Procedure: d iabetes surgery * Family History: F ather: , did not know him very well. M other: alive, clot in brain, diagnosed with Unspecified essential hypertension. S ister(s): , COPD. 1 sister(s) . 1 daughter(s) - healthy. . * Social History: T obacco Use: T obacco Use/Smoking P atient is a c urrent every day smoker D rug/Alcohol: A ISAURO-C (Standard) D id you have a drink containing alcohol in the past year? N o P oints 0 I nterpretation N egative * Medications: T akingAmitriptyline HCl 50 MG Tablet 1-2 tablet at bedtime Orally Once a day Clopidogrel Bisulfate 75 MG Tablet TAKE 1 TABLET BY MOUTH EVERY DAY Glimepiride 4 MG Tablet TAKE 1 TABLET BY MOUTH TWICE A DAY Jardiance(Empagliflozin) 25 MG Tablet TAKE 1 TABLET BY MOUTH EVERY DAY FOR 30 DAYS metFORMIN HCl 500 MG Tablet 1 tablet with a meal Orally BID Metoprolol Tartrate 25 MG Tablet TAKE 1 TABLET BY MOUTH TWICE A DAY Protonix(Pantoprazole Sodium) 40 MG Tablet Delayed Release 1 tablet Orally Once a day Rosuvastatin Calcium 5 MG Tablet TAKE 1 TABLET BY MOUTH EVERY DAY FOR 30 DAYS Medication List reviewed and reconciled with the patientTaking Amitriptyline HCl 50 MG Tablet 1-2 tablet at bedtime Orally Once a day Taking Clopidogrel Bisulfate 75 MG Tablet TAKE 1 TABLET BY MOUTH EVERY DAY Taking Glimepiride 4 MG Tablet TAKE 1 TABLET BY MOUTH TWICE A DAY Taking Jardiance(Empagliflozin) 25 MG Tablet TAKE 1 TABLET BY MOUTH EVERY DAY FOR 30 DAYS Taking metFORMIN HCl 500 MG Tablet 1 tablet with a meal Orally BID Taking Metoprolol Tartrate 25 MG Tablet TAKE 1 TABLET BY MOUTH TWICE A DAY Taking Protonix(Pantoprazole Sodium) 40 MG Tablet Delayed Release 1 tablet Orally Once a day Taking Rosuvastatin Calcium 5 MG Tablet TAKE 1 TABLET BY MOUTH EVERY DAY FOR 30 DAYS Medication List reviewed and reconciled with the patient * Allergies: P enicillin: syncopeno[Allergies Verified] Objective: * Vitals: W t:141.6lbs, Ht: 66 in, BP:138/78mm Hg, BMI:22.85Index, Ht-cm: 167.64 cm, Wt-k.23 kg. * Examination: P hysical Exam: GENERAL: w ell developed, well nourished, in no acute distress. HEAD: n ormocephalic/atraumatic. EYES: p upils equal, round and reactive to light, conjunctivae and sclerae normal. EARS: n o deformity or lesion of external ear, canals and TM appear normal bilaterally, TM's intact, not inflamed with normal light reflex, hearing grossly normal to conversational speech. NOSE: n o deformity, discharge, inflammation, or lesions.? MOUTH: m ucous membranes moist, normal oropharynx and posterior pharynx without lesions or exudates, tongue normal, dentition normal. NECK: n darryl supple, no masses or palpable cervical nodes, trachea midline, thyroid without nodules, masses, tenderness, or enlargement. CHEST: n o chest wall deformity, no chest wall tenderness.? LUNGS: n ormal respiratory effort and clear to auscultation, no wheezes, rales, or rhonchi, good air exchange. CARDIO: r egular rate and rhythm, normal S1 and S2, nor murmur, rub, or gallop. PULSES: n ormal capillary refill. ABDOMEN: s oft, non-distended, non-tender, no masses. MUSCULOSKELETAL: n o deformity or scoliosis noted, normal range of motion, joints normal, no erythema, edema, effusion, or ecchymosis. EXTREMITY: n o clubbing, cyanosis, edema, or deformity with normal ROM in both upper and lower bilateral extremities. NEUROLOGIC: g rossly normal. SKIN: n o rashes, ulcerations, or suspicious lesions. LYMPH NODES: n o cervical adenopathy, nodes normal. MENTAL STATUS: a lert and oriented x3, normal mood and affect. Assessment: * Assessment: 1. C OPD (chronic obstructive pulmonary disease) - J44.9 (Primary) 2 . B enign essential hypertension - I10 3 . T ype 2 diab w hyprosm w/o nonket hyprgly-hypros coma ([facility]) - E11.00 4 . P ure hypercholesterolemia, unspecified - E78.00 5. W ell adult - Z00.00 Plan: * Treatment: 2. B enign essential hypertension Notes: stabel here 3. T ype 2 diab w hyprosm w/o nonket hyprgly-hypros coma ([facility]) Notes: not checking at home 4. P ure hypercholesterolemia, unspecified Notes: follow up on labs 5. W ell adult L AB: HEMOGLOBIN A1C (GLYCO) L AB: LIPID PANEL (CHOL/TRIG/HDL/LDL) L AB: URIC ACID L AB: STOOL OCCULT BLOOD L AB: THYROID PANEL (T4/TSH/FREE T3) L AB: PSA, SCREENING L AB: CMP (COMP MET [facility]) w/eGFR CKD-EPI L AB: CBC WITH DIFF * Procedure Codes: G 0439 ANNUAL WELLNESS, SUBSEQ * * Sign off status: Completed Visit Status: C HK (Check Out) true * Provider: Wesley Multani ([facility])MD Date: 0 03/04/2025 Generated for Printi ng/Faxing/eTransmitting on: 0 03/07/2025 08:30 AM EDT History and Physical Notes * HPI (History of Present Illness) Category Sub-Category Detail Notes Category Not es General chol - on med - checing labs dm - not checking raul see wht glyco is htn - stabel her gerd - no symptoms as long as take meds Examination Category Sub-Category Detail Notes Category Not es Physical Exam GENERAL: well developed, well nourished, in no acute distress HEAD: normocephalic/atraum atic EYES: pupils equal, round and reactive to light, conjunctivae and sclerae normal EARS: no deformity or lesi on of external ear, canals and TM appear normal bilaterally, TM's intact, not inflamed with normal light reflex, hearing grossly normal to conversational speech NOSE: no deformity, discha rge, inflammation, or lesions MOUTH: mucous membranes debi st, normal oropharynx and posterior pharynx without lesions or exudates, tongue normal, dentition normal NECK: neck supple, no mass es or palpable cervical nodes, trachea midline, thyroid without nodules, masses, tenderness, or enlargement CHEST: no chest wall deform ity, no chest wall tenderness LUNGS: normal respiratory e ffort and clear to auscultation, no wheezes, rales, or rhonchi, good air exchange CARDIO: regular rate and rhy thm, normal S1 and S2, nor murmur, rub, or gallop PULSES: normal capillary ref ill ABDOMEN: soft, non-distended, non-tender, no masses RECTAL: MUSCULOSKELETAL: no deformity or scol iosis noted, normal range of motion, joints normal, no erythema, edema, effusion, or ecchymosis EXTREMITY: no clubbing, cyanosi s, edema, or deformity with normal ROM in both upper and lower bilateral extremities NEUROLOGIC: grossly normal SKIN: no rashes, ulceratio ns, or suspicious lesions LYMPH NODES: no cervical adenopat hy, nodes normal MENTAL STATUS: alert and oriented x 3, normal mood and affect
--- OUTSIDE RECORDS SUMMARY | 2025-03-05 14:15 | XMS_ITS ---
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 T ype 2 diab w hyprosm w/o nonket hyprgly-hypros coma ([facility]) - E11.00 (Primary) ? Plan: * Treatment: * Procedure Codes: * true * Date: Generated for Madan anne/Andrew/Elio on: 0 03/07/2025 08:31 AM EDT
--- OUTSIDE RECORDS SUMMARY | 2025-03-07 08:30 | XMS_ITS | Encounter Summary ---
Author Organization [facility] Address [id number] [address] [place] [address] Care Team Providers Care Mortgage Loan Underwriter Name Role Phone Unavailable Primary Care Provider Unavailabl e Encounter Details Date Type Department Care Team ([facility] Contact Info) Description 01/31/2024 Orders Only [facility] External Film Storage [facility] [place] [address] Transcribe, Orders Support User Pain [...] Upcoming Encounters Date Type Department Care Team ([facility] Contact Info) Description 03/07/2025 1:00 PM EDT Hospital Encounter [facility] [address] [place] [phone] Lynn Finnegan MD [address], [address] [place] [address] 03/20/2025 9:40 AM EDT Office Visit [facility] [address] [place] [address] Lynn Finnegan MD [address], [address] [place] [address] documented as of this encounter Results * Vas art duplex lwr bilateral (01/26/2024 7:10 AM EDT) us Scanning Provider External CV VASCULAR ORDERABLE S Final Result [facility] * Vas art digit limited single lower (01/18/2024 9:55 AM EDT) us Scanning Provider External CV VASCULAR ORDERABLE S Final Result [facility] documented in this encounter Visit Diagnoses Diagnosis Pain- Primary Generalized pain documented in this encounter
--- OUTSIDE RECORDS SUMMARY | 2025-03-07 08:31 | XMS_ITS | Encounter Summary ---
Author Organization [facility] Address [id number] [address] [place] [address] Care Team Providers Care Senior Office Assistant Name Role Phone Unavailable Primary Care Provider [...] Description 03/07/2025 1:00 PM EDT Hospital Encounter [facility] [address] [place] [phone] Lynn Finnegan MD [address], [address] [place] [address] 03/20/2025 9:40 AM EDT Office Visit [facility] [address] [place] [address] Lynn Finnegan MD [address], [address] [place] [address] documented as of this encounter Visit Diagnoses Not on filedocumented in this encounter
--- OUTSIDE RECORDS SUMMARY | 2025-03-07 08:31 | XMS_ITS | Clinical Summary ---
Author Organization [employer] [facility] Address [id number] [place] [address] Care Team Providers Care Pull Over Name Role Phone Unavailable Primary Care Provider [...] Encounters Date Type Department Care Team Description 03/07/2025 1:00 PM EDT Hospital Encounter [facility] [address] [place] [address] Lynn Finnegan MD 02/27/2025 9:30 AM EDT Office Visit [facility] [address] [place] [address] Lynn Finnegan MD Cigarette smoker (Primary Dx); [...] Description 03/07/2025 1:00 PM EDT Hospital Encounter [facility] [address] [place] [address] yLnn Finnegan MD [address], [address] [place] [address] 03/20/2025 9:40 AM EDT Office Visit [facility] [address] [place] [address] Lynn Finnegan MD [address], [address] [place] [address] Health Maintenance Due Date Last Done Comments Tobacco Counseling 1960 Depression Screening 1974 Zoster (Shingles) Vaccine (1 of 2) 2012 Influenza Vaccine 04/14/2025 Adult BMI Screening 02/27/2026 02/27/2025 Tobacco Screening 02/27/2026 02/27/2025 DTaP,Tdap and Td Vaccines (2 - Td or Tdap) 11/24/2034 11/24/2024 Medical Devices Not on file Insurance MEDICAID [place] MEDICARE
--- OUTSIDE RECORDS SUMMARY | 2025-03-07 08:31 | XMS_ITS | Patient Health Record ---
Author Organization [facility] Address [address] [place] [address] Care Team Providers Care Auto Care Center Manager Name Role Phone Marshall Multani Primary Care [facility] Damaris Kumari Unavailable [phone] Sheila Spaulding Unavailable [phone] Reason For Referral Reason NO AUTH REQ......... ...................NOT SCHEDULED................................[facility] MRI LUMBAR TO BE DONE AT [facility] Diagnosis 1 Degeneration of inte rvertebral disc of lumbar region with discogenic back pain and lower extremity pain (M51.362) Referral Organization [facility] Referring Provider First Name Damaris Referring Provider Last Name [facility] Referring Provider Speciality Orthopedic Surgery Ref[facility] Referred Address [place], [place], Procedure 1 MRI Lumbar Spine w/o Dye ([id number]) General Notes Ely Xavier 2024 09:42:26 AM [...] Problem Status W/U Status Risk Notes Problem [id number] Degeneration of intervertebral disc of lumbosacral region with discogenic back pain and lower extremity pain (M51.372) Active confirmed Vital Signs Height 5'6 in 01/17/2025 Weight 154 lbs 01/17/2025 BMI 24.85 01/17/2025 Encounters Encounter Location Date Provider Diagnosis [facility] Office [address] [place] [address] [place] [address] [facility] of intervertebral disc of lumbosacral [...] Lumbar spine 2v flex and ext - 46057 01/2025 MRI : Lumbosacral Spine W/O Contrast - [phone] 01/17/2025 Insurance Providers Payer Name Payer Address Payer Phone Subscriber Number Group Number Insured Name Patient Relationship to Insured Coverage Start Date Coverage [place] [address] [place] [address] [id number] MARINO GARCES Self - patient is the insured 5 [facility] [address] [place] [address] [id number] MARINO GARCES Self - patient is the insured 5
--- OUTSIDE RECORDS SUMMARY | 2025-03-07 08:31 | XMS_ITS | Clinical Summary ---
Author Organization [facility] Address [address] [place] [address], [address] [place] [address] Care Team Providers Care Industrial Production Manager Name Role Phone Unavailable Primary Care Provider [...]
--- OUTSIDE RECORDS SUMMARY | 2025-03-07 08:31 | XMS_ITS | Patient Health Record ---
Author Organization The [facility] [place] Address [address] [place] [address] Care Team Providers Care Test Technician Name Role Phone Fernandez Navarro Primary Care Provider Allergies Allergen (clinical drug ingredient) Drug/Non Drug Allergy documented on EMR Reaction Allergy Type Onset Date Status Penicillin syncope Drug Allergy Active Results Component Value Reference Range Notes CT abdomen pelvis wo con Reviewed date:12/26/2024 03:34:27 PM Interpretation: Performing Lab: Notes/Report: Source Facility: [place] [address] CT Scan Report Signed Patient: LIONEL LANDIN MR#: [id number] : 1960 Acct:[id number] Age/Sex: 64 / M ADM Date: 12/26/24 Loc: LAB Attending Dr: Myrna Navarro M.D. Ordering Physician: Myrna Navarro M.D. Date of Service: 12/26/24 Procedure(s): CT abdomen pelvis wo/w con Accession Number(s): [id number] cc: Myrna Navarro M.D. [place] [id number] Patient Name: LIONEL LANDIN MRN: [id number] date: 1960 Sex: M Assigned Patient Location: LAB Current Patient Location: LAB Accession/Order Number: [id number] Exam Date: 12/26/2024 13:35 Report Date: 12/26/2024 [...] Chester M.D. 12/26/2024 1:51 PM Dictation Location: [place] [address] Electronically authenticated by: [id number] Y Date: 12/26/2024 13:51 Dictated By: Cirilo Chester M.D. Signed By: 12/26/24 1354 DD/ 1351 TD/TT: [employer]ian Cr[employer] Maintenance: [place] [address] CT Scan Report Signed Patient: JAI LANDIN MR#: [id number] : 1960 Acct:[id number] Age/Sex: 64 / M ADM Date: 12/26/24 Loc: LAB Attending Dr: Brenda Navarro M.D. Ordering Physician: Myrna Navarro M.D. Date of Service: 12/26/24 Procedure(s): CT abdomen pelvis wo/w con Accession Number(s): [id number] cc: Myrna Navarro M.D. [place] [address] Patient Name: LIONEL LANDIN MRN: [id number] date: 1960 Sex: M Assigned Patient Location: LAB Current Patient Location: LAB Accession/Order Numb er: [id number] Exam Date: 12/26/2024 13:35 Report Date: 12/26/2024 [...] Chester M.D. 12/26/2024 1:51 PM Dictation Location: [place] [address] Electronically authenticated by: [id number] Y Date: 12/26/2024 13:51 Dictated By: Cirilo Chester M.D. Signed By: 12/26/24 1354 DD/ 1351 TD/TT: [employer] Maintenance: CBC AUTO DIFF Reviewed date:03/05/2025 06:15:59 PM Interpretation: Performing Lab: Notes/Report: [facility] , White Blood Count 7.9 4.0-11.0 10 3/uL Red Blood Count 5.62 4.70-6.10 10 6/uL Hemoglobin 17.2 14.0-18.0 g/dL Hematocrit 49.3 42.0-54.0 % Mean Corpuscular Volume 87.7 80.0-94.0 fL Mean Corpuscular Hemoglobin 30.6 25.9-34.0 pg Mean Corpuscular HGB Conc 34.9 29.9-35.2 g/dL Red Cell Distribution Width 13.1 11.0-15.0 % Platelet Count 226 150-450 10 3/uL Mean Platelet Volume 9.2 9.5-13.5 fL Neutrophils Percent Auto 66.3 43.0-75.0 % Lymphocytes Percent Auto 22.9 20.5-60.0 % Monocytes Percent Auto 7.6 1.7-12.0 % Eosinophils Percent Auto 2.4 0.9-7.0 % Basophils Percent Auto 0.5 0.2-2.0 % Immature Granulocytes Pct Auto 0.3 0.0-0.5 % Neutrophils Absolute Auto 5.2 1.4-6.5 10 3/uL Lymphocytes Absolute Auto 1.8 1.2-3.8 10 3/uL Monocytes Absolute Auto 0.6 0.3-0.8 10 3/uL Eosinophils Absolute Auto 0.2 0.0-0.7 10 3/uL Basophils Absolute Auto 0.0 0.0-0.1 10 3/uL Immature Granulocytes Abs Auto 0.02 0.00-0.03 10 3/uL Performing Lab: see note ML - The [facility] FREE T3 Reviewed date:03/05/2025 06:15:59 PM Interpretation: Performing Lab: Notes/Report: [facility] , Free T3 2.62 2.18-3.98 pg/mL Performing Lab: see note ML - [facility] LB GLYCOHEMOGLOBIN A1C Reviewed date:03/05/2025 06:15:59 PM Interpretation: Performing Lab: Notes/Report: [facility] , Glycohemoglobin A1C 9.0 4.5-6.2 % > 7.0 ADA RECOMMENDED LIMIT 4.0 - 6.0 ADA THERAPEUTIC TARGET < 7.0 ACTION SUGGESTED Estimated Average Glucose 212 Performing Lab: see note ML - [facility] LB LIPID PROFILE Reviewed date:03/05/2025 06:15:59 PM Interpretation: Performing Lab: Notes/Report: [facility] , Triglycerides 102 <=150 mg/dL Cholesterol 183 <=200 mg/dL HDL Cholesterol 41 40-60 mg/dL > or =60 mg/dl - LOW CARDIOVASCULAR RISK <40 mg/dl - HIGH CARDIOVASCULAR RISK LDL Cholesterol Calculated 121.6 160-189 mg/dl HIGH <100 mg/dl OPTIMAL 130-159 mg/dl BORDERLINE HIGH >190 mg/dl VERY HIGH 100-129 mg/dl NEAR OR ABOVE OPTIMAL VLDL CHOLESTEROL 20.4 Chol HDL Ratio 4.5 >11.0 HIGH RISK 3.3 - 4.4 LOW RISK 4.4 - 7.1 AVERAGE RISK 7.1 - 11.0 MODERATE RISK Performing Lab: see note ML - [facility] LB PROF 14(COMP METB) Reviewed date:03/05/2025 06:15:59 PM Interpretation: Performing Lab: Notes/Report: [facility] , Sodium 142 136-145 mmol/L Potassium 4.7 3.5-5.1 mmol/L Chloride 104 98-107 mmol/L Carbon Dioxide 27.6 21.0-32.0 mmol/L Anion Gap 15.1 Glucose 267 74-106 mg/dL Blood Urea Nitrogen 21.0 7.0-18.0 mg/dL Creatinine 0.99 0.70-1.30 mg/dL Estimated GFR ( Roberta >60 >=60 mL/min/1.73m 2 Estimated GFR (Non- Genesis >60 >=60 mL/min/1.73m 2 BUN Creatinine Ratio 21.2 Calcium 9.4 8.5-10.1 mg/dL Bilirubin Total 0.6 0.2-1.0 mg/dL Aspartate Amino Transferase 24 15-37 U/L Alanine Aminotransferase 60 16-63 U/L Alkaline Phosphatase 146 46-116 U/L Total Protein 7.4 6.4-8.2 g/dL Albumin Level 4.1 3.4-5.0 g/dL Globulin 3.3 Albumin Globulin Ratio 1.2 Performing Lab: see note ML - [facility] LB T4 Reviewed date:03/05/2025 06:15:59 PM Interpretation: Performing Lab: Notes/Report: [facility] , T4 Thyroxine 8.40 4.50-12.10 ug/dL Performing Lab: see note ML - [facility] LB TSH Reviewed date:03/05/2025 06:15:59 PM Interpretation: Performing Lab: Notes/Report: [facility] , Thyroid Stimulating Hormone 0.558 0.358-3.740 uIU/mL Performing Lab: see note ML - [facility] LB URIC ACID SERUM Reviewed date:03/05/2025 06:15:59 PM Interpretation: Performing Lab: Notes/Report: [facility] , Uric Acid 5.1 3.5-7.2 mg/dL Performing Lab: see note ML - [facility] LB PSA SCREENING Reviewed date:03/05/2025 06:15:59 PM Interpretation: Performing Lab: Notes/Report: [facility] , Prostate Specific Antigen Scrn 0.78 <=4.00 ng/mL Performing Lab: see note ML - [facility] LB MR lumbar spine wo con Reviewed date:01/26/2025 12:51:38 PM Interpretation: Performing Lab: Notes/Report: Source Facility: [place] [address] [place] [address] Magnetic Resonance Report Signed Patient: LIONEL LANDIN MR#: [id number] : 1960 Acct:[id number] Age/Sex: 64 / M ADM Date: 01/24/25 Loc: MRI Attending Dr: Say Mazariegos M.D. Ordering Physician: Say Mazariegos M.D. Date of Service: 01/24/25 Procedure(s): MR lumbar spine wo con Accession Number(s): [id number] cc: Myrna Navarro M.D.; Say Mazariegos M.D. [place] [address] Patient Name: LIONEL LANDIN MRN: [id number] date: 1960 Sex: M Assigned Patient Location: MRI Current Patient Location: MRI Accession/Order Number: [id number] Exam Date: 01/24/2025 08:37 Report Date: 01/24/2025 [...] Montes M.D. 01/24/2025 8:52 AM Dictation Location: [place] [address] Electronically authenticated by: [id number] Y Date: 01/24/2025 08:52 Dictated By: Nellie Montes M.D. Signed By: 01/24/2554 DD/ TD/TT: [employer] Maintenance: The [address] [address] Magnetic Resonance Report Signed Patient: JAI LANDIN MR#: [id number] : 1960 Acct:[id number] Age/Sex: 64 / M ADM Date: 01/24/25 Loc: MRI Attending Dr: Say Mazariegos M.D. Ordering Physician: Say Mazariegos M.D. Date of Service: 01/24/25 Procedure(s): MR lum bar spine wo con Accession Number(s): [id number] cc: Myrna Navarro M.D. ; aSy Mazariegos M.D. [place] [id number] Patient Name: LIONEL LANDIN MRN: [id number] date: 1960 Sex: M Assigned Patient Location: MRI Current Patient Location: MRI Accession/Order Numb er: [id number] Exam Date: 01/24/2025 08:37 Report Date: 01/24/2025 08:52 At the request of: SAY MAZARIEGOS MD Procedure: MR lumbar spine wo con MRI LUMBAR SPINE WITHOUT CONTRAST COMPARISON: Plain fi lms 12/27/2024 CLINICAL [...] Montes M.D. 01/24/2025 8:52 AM Dictation Location: [place] [address] Electronically authenticated by: [id number] Y Date: 01/24/2025 08:52 Dictated By: Nellie Montes M.D. Signed By: 01/24/25 0854 DD/ 0852 TD/TT: [employer] Maintenance: XR lumbar spine 2-3V Reviewed date:12/29/2024 10:55:57 PM Interpretation: Performing Lab: Notes/Report: Source Facility: [place] [address] [place] [address] XRay Report Signed Patient: LIONEL LANDIN MR#: [id number] : 1960 Acct:[id number] Age/Sex: 64 / M ADM Date: 12/27/24 Loc: RAD Attending Dr: Myrna Navarro M.D. Ordering Physician: Myrna Navarro M.D. Date of Service: 12/27/24 Procedure(s): XR lumbar spine 2-3V Accession Number(s): [id number] cc: Myrna Navarro M.D. [place] [id number] Patient Name: LIONEL LANDIN MRN: [id number] date: 1960 Sex: M Assigned Patient Location: [facility] Current Patient Location: [facility] Accession/Order Number: [id number] Exam Date: 12/27/2024 10:36 Report Date: 12/27/2024 [...] Chester M.D. 12/27/2024 10:40 AM Dictation Location: [place] [address] Electronically authenticated by: [id number] Y Date: 12/27/2024 10:40 Dictated By: Cirilo Chester M.D. Signed By: 12/27/24 1043 DD/ 1040 TD/TT: [employer] Maintenance: [place] [address] XRay Report Signed Patient: JAI LANDIN MR#: [id number] : 1960 Acct:[id number] Age/Sex: 64 / M ADM Date: 12/27/24 Loc: [facility] Attending Dr: Brenda Navarro M.D. Ordering Physician: Myrna Navarro M.D. Date of Service: 12/27/24 Procedure(s): XR lum bar spine 2-3V Accession Number(s): [id number] cc: Myrna Navarro M.D. The [address] [address] Patient Name: LIONEL LANDIN MRN: [id number] date: 1960 Sex: M Assigned Patient Location: [facility] Current Patient Location: RAD Accession/Order Numb er: [id number] Exam Date: 12/27/2024 10:36 Report Date: 12/27/2024 [...] destruct ramone lesion. There is mild disc height loss at L4-5 and L5-S1. There is facet hypertrophy predominantly at the se levels. Mild degenerative changes are noted in the sacroiliac joints. Atherosclerotic kwok ges are present in the abdominal aorta. XR/XR [...] Chester M.D. 12/27/2024 10:40 AM Dictation Location: [place] [address] Electronically authenticated by: [id number] Y Date: 12/27/2024 10:40 Dictated By: Cirilo Chester M.D. Signed By: 12/27/24 1043 DD/ 1040 TD/TT: [employer] Maintenance: [employer] Reviewed date:12/26/2024 03:34:27 PM Interpretation: Performing Lab: Notes/Report: [facility] , Creatinine 1.06 0.70-1.30 mg/dL Estimated GFR ( Roberta >60 >=60 mL/min/1.73m 2 Estimated GFR (Non- Genesis >60 >=60 mL/min/1.73m 2 Performing Lab: see note ML - [facility] LB UA DIP NONAUTO WO MICRO (810 02) - IN OFFICE Reviewed date:12/26/2024 03:34:27 PM Interpretation: Performing Lab: Notes/Report: COLOR bright yellow CLARITY clear GLUCOSE 1000 BILIRUBIN neg KETONE neg SPECIFIC GRAVITY 1.005 BLOOD neg PH 5 PROTEIN neg UROBILINOGEN neg NITRITE neg LEUKOCYTE ESTERASE neg Reason For Referral Diagnosis 1 Low back pain at [facility] (M54.50) Referral Organization [facility] Referring Provider First Name Fernandez Referring Provider Last Name Nerissa Referring Provider [facility] Referred Provider Say Jennings Referred Provider Specialty Orthopedic S urgery Referral Priority Routine Reason second opinion Diagnosis 1 Lumbar stenosis (M48 .061) Diagnosis 2 Lumbar disc disorder (M51.9) Referral Organization [facility] Referring Provider First Name Fernandez Referring Provider Last Name Nerissa Referring Provider [facility] Referred Provider Del Lee Referred Provider Specialty [...] Problem COPD - Chronic obstructive pulmonary disease (98293193) COPD (chronic obstructive pulmonary disease) (J44.9) Active confirmed Problem Coronary artery dise ase (78055439) CAD (coronary artery disease) (I25.10) Active confirmed Problem Benign essential hypertension (6048078) Benign essential hypertension (I10) Active confirmed Problem Well adult (250698948) Well adul t (Z00.00) Active confirmed Problem Dysphagia (41904824) Dysphagia (R13.10) Active confirmed Problem Flank pain (238912173) Flank annalise n (R10.9) Active confirmed Problem Right upper quadrant pain (028752180) Abdominal pain, RUQ (R10.11) Active confirmed Problem Gastrointestinal hemorrhage (99329799) GI bleed (K92.2) Active confirmed Problem History of hematuria (344632936) H/O hematuria (Z87.448) Active confirmed Problem S/P PTCA (percutaneous transluminal coronary angioplasty) (Z98.61) Active confirmed Problem Hyperosmolarity due to secondary diabetes mellitus (530465335409049) 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 ([facility]) (E11.00) Active confirmed Problem Shoulder impingement syndrome (414384917) Shoulder impingement syndrome (M75.40) Active confirmed Problem Disorder of lumbar d isc (551991023) Lumbar disc disorder (M51.9) Active confirmed Problem Arterial disease (376969649) Arterial disease (I77.9) Active confirmed Problem Pure hypercholesterolemia (570106239) Pure hypercholester olemia, unspecified (E78.00) Active confirmed Problem Lumbar spinal stenos is (86195641) Lumbar stenosis (M48.061) Active confirmed Vital Signs Blood pressure diastolic 78 mm Hg 03/04/2025 Height 66 in 03/04/2025 Blood pressure systolic 138 mm Hg 03/04/2025 Weight 141.6 lbs 03/04/2025 BMI 22.85 kg/m2 03/04/2025 Encounters Encounter Location Date Provider Diagnosis [facility] [address] [place] [address] 12/20/2024 Frenandez Hoy GI bleed K92.2 and F lank pain R10.[address] [address] 03/04/2025 Fernandez Hoy COPD (chronic obstructive pulmonary disease) J44.9 ; Benign essential hypertension I10 ; 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 ([facility]) E11.00 ; Pure hypercholesterolemia, unspecified E78.00 and Well adult Z00.[address] [address] 11/05/2024 Fernandez Hoy CAD (coronary artery disease) I25.[address] [address] 12/26/2024 Fernandez Hoy Low back pain at multiple sites M54.[address] [address] 12/29/2024 Fernandez Hoy Low back pain at multiple sites M54.[address] [address] 01/22/2025 Fernandez Hoy [address] [address] 01/26/2025 Fernandez Hoy Lumbar stenosis M48. 061 and Lumbar disc disorder M51.[address] [address] 02/25/2025 Fernandez Hoy [address] [address] 03/05/2025 Fernandez Hoy Type 2 diab w hypros m w/o nonket hyprgly-hypros coma ([facility]) E11.00 Assessments Encounter Date Diagnosis (ICD Code) Assessment Notes Treatment Notes Treatment Clinical Notes Section Notes 12/20/2024 GI bleed (ICD-10 - K92.2) 12/20/2024 Flank pain (ICD-10 - R10.9) 03/04/2025 COPD (chronic obstructive pulmonary disease) (ICD-10 - J44.9) ct lungs screening 03/04/2025 Benign essential hypertension (ICD-10 - I10) stabel here 11/05/2024 CAD (coronary artery disease) (ICD-10 - I25.10) 12/26/2024 Low back pain at multiple sites (ICD-10 - M54.50) 12/29/2024 Low back pain at multiple sites (ICD-10 - M54.50) 01/26/2025 Lumbar stenosis (ICD-10 - M48.061) 01/26/2025 Lumbar disc disorder (ICD-10 - M51.9) 03/05/2025 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 ([facility]) (ICD-10 - E11.00) 03/04/2025 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 ([facility]) (ICD-10 - E11.00) not checking at home 03/04/2025 Pure hypercholesterole misty, unspecified (ICD-10 - E78.00) follow up on labs 03/04/2025 Well adult (ICD-10 - Z00.00) Plan Of Treatment Pending Test Test Name [...] OCCULT BLOOD 12/29/2022 STOOL OCCULT BLOOD 03/04/2025 GLYCOHEMOGLOBIN A1C 03/05/2025 CT ABD and PELV W CON 12/20/2024 [...] End Date [place]IC[place] [address] [place] [address] [id number] Lionel Landin Self - patient is the insured [place] 2ND INS [address] OFFICE OF [place], [place] [id number] Lionel Landin Self - patient is the [...] E11.00 Dysphagia R13.10 Surgical History Surgery Date(Month/Year) Cardiac stents 5 or 6 Bolts in bilat feet Replaced bone in jaw Hospitalization History Reason Date(Month/Year) surgery diabetes
--- OUTSIDE RECORDS SUMMARY | 2025-03-07 08:31 | XMS_ITS | Clinical Summary ---
Demographics Address [address] [place] [address] Home Phone Preferred Language ENG Marital Status Catholic Affiliation Unknown Race Other Race Ethnic Group Unknown Author Organization [facility] Address [address] [place], [place] [id number] Care Team Providers Care Registered Nurses Name Role Phone Unavailable Primary Care Provider [...] of Phone Billing Address Personal/Family Self 1960 [address] [place] [address] [facility]
--- NOTE | 2025-03-07 08:32 | CT_ITS ---
[address] [address] Patient Name: MARINO GARCES MRN: [id number] date: 1960 Sex: M Assigned Patient Location: CT Current Patient Location: CT Accession/Order Number: [id number] Exam Date: 03/07/2025 10:05 Report Date: 03/07/2025 10:07 At the request of: MYRNA NAVARRO MD Procedure: CT lung screening low-dose CT CHEST WITHOUT CONTRAST, LOW DOSE SCREENING: CLINICAL DATA: A 64-year old current smoker COMPARISON: Chest 07/13/2019 TECHNIQUE: Noncontrast axial CT scan images of the chest were obtained under the low dose screening CT protocol. Coronal and sagittal reconstructed images were also submitted. FINDINGS: Mediastinum : Suboptimal evaluation due to low-dose technique. Thoracic aorta appears normal in caliber. Pulmonary trunk appears nondilated. No pericardial effusion. No lymphadenopathy. The esophagus is grossly unremarkable. Lungs: No focal consolidation, pneumothorax or pleural effusion. Trachea and distal airways appear patent. Mild bronchial wall thickening. Mild lung scarring. Emphysema. 5 mm nodule right upper lobe series 4 image 29. Upper abdomen: No acute findings. Bony thorax and chest wall: Soft tissues surrounding the chest wall demonstrate no acute findings. Osseous structures demonstrate degenerative change. CT/CT lung screening low-dose IMPRESSION: 5 MM NODULE RIGHT UPPER LOBE. LUNG - RADS Version 1.0 Assessment: Category 2, Benign appearance or behavior. Management: Continue annual lung screening with LDCT in 12 months. Impression dictated by: Stefano Peace Jr., D.O. 03/07/2025 10:07 AM [facility]ictation [facility] Electronically authenticated by: [id number] Y Date: 03/07/2025 10:07
--- OUTSIDE RECORDS SUMMARY | 2025-03-07 13:00 | XMS_ITS | Encounter Summary ---
Author Organization [facility] Address [id number] [address] [place] [address] Care Team Providers Care Production Control Planner Name Role Phone Unavailable Primary Care Provider Unavailabl e Reason for Visit * Vascular (Routine) - Authorized Specialty Diagnoses / Procedures Referred By Contac t Referred To Contact Diagnoses Cigarette smoker Severe claudication Procedures Vas art doppler lwr bilat mult lev/PVR Lynn Finnegan MD [address], [address] [address] Phone: tel: fax: Referral ID Status Reason Start Date Expiration Date V isits Requested Visits Authorized [id number] Authorized 02/27/2025 02/27/2026 1 1 Encounter Details Date Type Department Care Team (Late st Contact Info) Description 03/07/2025 1:00 PM EDT Hospital Encounter [facility] - Vascular [address] [place] [address] Lynn Finnegan MD [address], [address] [address] Social History Tobacco Use Types Packs/Day Years [...] Care Team (Late st Contact Info) Description 03/20/2025 9:40 AM EDT Office Visit [facility] [address] [place] [address] Lynn Finnegan MD [address], [address] [address] Scheduled Orders Name Type Priority Associated Diagnoses Orde r Schedule Vas art doppler lwr bilat mult lev/PVR Vascular Ultrasound Routine Cigarette smoker Severe claudication ([facility]) Expected: 02/27/2025, Expires: 08/30/2026 documented as of this encounter Visit Diagnoses Not on filedocumented in this encounter
== END 2025-03-07 08:29 | disposition home or self-care (01) ==
LOC: CT 08:28
PROVIDERS: PCP Family Medicine; Visit Provider Family Medicine
DX: R91.1 Solitary pulmonary nodule (principal); J44.9 Chronic obstructive pulmonary disease, unspecified; F17.210 Nicotine dependence, cigarettes, uncomplicated
CPT/HCPCS: 71271

== ENCOUNTER 2025-03-31 08:01 | Outpatient (OUT) | payer MEDICARE, MEDICAID, SELFPAY ==
--- NOTE | 2025-03-31 | NM_ITS ---
Patient Name: MARINO GARCES MR#: [id number] : 1960 Exam Date: 03/31/2025 Ordering Doctor: DR MYRNA NAVARRO . RADIOLOGY REPORT PROCEDURE: NM ALIS PERF SPECT REST STR COMPARISON: None. INDICATIONS: CAD, CHEST PAIN, PREPROCEDURAL EXAMINATION TECHNIQUE: Exam Description: Stress/Rest one day protocol gated SPECT Rest Imagin.7 mCi Tc-99m Cardiolite IV on 03/31/2025 Stress Imaging 30.3 mCi Tc-99m Cardiolite IV on 03/31/2025 Exercise Protocol: 0.4 mg Lexiscan given IV Heart Rate (bpm): Rest: 73 Max: 97 PMHR: 61 Blood Pressure: Rest: 146/92 Max: 150/82 Symptoms: Rest and peak stress ECG findings were pending, and the exercise portion of the study was pending per attending physician [facility]. For more details, please see separate cardiac stress test report. FINDINGS: QUALITY OF STUDY: Good PERFUSION DEFECT: LOCATION: Basal inferoseptal SIZE: Moderate SEVERITY: Severe TYPE: Fixed WALL MOTION: Hypokinesia of the basal inferoseptum LV SIZE: 113 mL. TID / TCD: 0.9 LVEF: Calculated EF 47%. SUMMARY: Myocardial perfusion imaging study is abnormal CONCLUSION: 1. Myocardial perfusion is abnormal with soft tissue attenuation 2. A fixed basal inferoseptal perfusion defect is seen consistent with infarct 3. No significant ischemia is seen 4. Global left ventricular systolic function is mildly reduced; EF is 47% 5. No significant transient ischemic dilatation Dictated by: Rayshawn Negron M.D. on 03/31/2025 at 14:06 Approved by: Rayshawn Negron M.D. on 03/31/2025 at 14:08
--- OUTSIDE RECORDS SUMMARY | 2025-03-31 08:12 | XMS_ITS | CCD ---
Author Organization [facility] Care Team Providers Care Grade Foreman Name Role Phone RAMON, DR NORRIS Consulting Unavailable RAMON, DR NORRIS Primary Care Unavailable RAMON, DR NORRIS Admitting Unavailable HOY, DR NORRIS Attending Unavailable WEST, DR KASSIE Salas Consulting Unavailable HOY, DR NORRIS Admitting Unavailable HOY, DR NORRIS Attending Unavailable HOY, DR NORRIS Consulting Unavailable HOY, DR NORRIS Consulting Unavailable HOY, DR NORRIS Primary Care Unavailable HOY, DR NORRIS Admitting Unavailable HOY, DR NORRIS Attending Unavailable ZIEBER, DR LESLIE Miramontes Consulting Unavailable Unavailable Primary Care Provider Unavaildilshad e Unavailable Primary Care Provider Unavaildilshad e LYNN FINNEGAN Attending Unavailable LYNN FINNEGAN Referring Unavailable Del Lee MD Attending Provider [phone] Myrna Multani MD Primary Care Provider [phone] Jose J Burdick MD Attending Provider Del Lee Attending Unavailable Del Lee Admitting Unavailable Myrna Multani Primary Care Unavailable Jose J Burdick Admitting Myrna Benavides Primary Care Unavailable Jose J Burdick Attending LYNN Slaughter Attending Unavailable LYNN FINNEGAN Attending Unavailable LYNN FINNEGAN Attending Unavailable Allergies Allergy Classification Reported Allergen(s) Allergy Type Date of Onset Reaction(s) Facility (1 source) Penicillin Drug Allergy [facility] Repository (9 sources) Penicillins; Translations: [PENICILLINS] Propensity to adverse reactions to drug 02-01-20 24 Hives [facility] (8 sources) Sulfamethoxazole / Trimethoprim; Translations: [SULFAMETHOXAZOLE-T RIMETHOPRIM] Drug Allergy 10-10-19 11 Other (See Comments) [facility] (3 sources) Penicillins Propensity to adverse reactions to drug 02-01-20 24 [facility] [employer] (1 source) Penicillins Drug allergy (disorder) 03-12-20 25 [facility] Repository Medications Current Medications Medication Drug Class(es) Dates Sig (Normalized) Sig (Original) aspirin 325 mg oral tablet (6 sources) Platelet Aggregation Inhibitor, Nonsteroidal Anti-inflammatory Drug take 1 tablet by mouth every six hours as needed aspirin 325 mg tablet Take 1 tablet (325 mg total) by mouth every 6 (six) hours as needed. Active cilostazol 100 mg oral tablet (2 sources) Phosphodiesterase 3 Inhibitor Start: 03-20-2025 take 0.5 tablet by mouth in the morning, then take 0.5 tablet by mouth at bedtime cilostazoL (PLETAL) 100 mg tablet Take 0.5 tablets (50 mg total) by mouth in the morning and 0.5 tablets (50 mg total) before bedtime. 90 tablet 4 03/20/2025 Active clopidogrel 75 mg oral tablet (4 sources) P2Y12 Platelet Inhibitor Start: 01-31-2025 take 1 tablet by mouth in the morning clopidogreL (PLAVIX) 75 mg tablet Take 1 tablet (75 mg total) by mouth in the morning. 01/31/2025 Active empagliflozin 10 mg oral tablet (4 sources) Sodium-Glucose Cotransporter 2 Inhibitor Start: 03-12-2025 take 1 tablet by mouth once daily Empagliflozin (Jardiance) 10 mg tablet Active 10 MG PO Daily March 12, 2025 12:00am Complies with drug therapy Start: 02-01-2025 take 1 tablet by anastacia th in the morning JARDIANCE 25 mg tablet tablet Take 1 tablet (25 mg total) by mouth in the morning. 02/01/2025 Active glimepiride 4 mg oral tablet (4 sources) Sulfonylurea Start: 03-12-2025 take 1 tablet by mouth twice daily Glimepiride 4 mg tablet Active 4 MG PO Twice daily March 12, 2025 12:00am Complies with drug therapy Start: 03-03-2025 take 1 tablet by anastacia th once daily before breakfast glimepiride (AMARYL) 4 mg tablet Take 1 tablet (4 mg total) by mouth every morning before breakfast. 03/03/2025 Active ibuprofen 200 mg oral tablet (6 sources) Nonsteroidal Anti-inflammatory Drug take 1 tablet by mouth every six hours as needed ibuprofen (AdviL) 200 mg tablet Take 1 tablet (200 mg total) by mouth every 6 (six) hours as needed. Active lisinopril 5 mg oral tablet (3 sources) Angiotensin Converting Enzyme Inhibitor Start: 03-12-20 take 1 tablet by mouth in the morning lisinopriL (PRINIVIL,ZESTRIL ) 5 mg tablet Take 1 tablet (5 mg total) by mouth in the morning. 03/12/2025 Active metFORMIN hydrochloride 500 mg oral tablet (2 sources) Biguanide Start: 03-12-20 take 1 tablet by mouth twice daily Metformin 500 mg tablet Active 500 MG PO Twice daily March 12, 2025 12:00am Complies with drug therapy 24 hr metoprolol succinate 25 mg extended release oral tablet (8 sources) beta-Adrenergic Reyes Start: 03-12-20 take 1 tablet by mouth twice daily Metoprolol Succinate 25 mg tablet extended release 24 hr Active 25 MG PO Twice daily March 12, 2025 12:00am Complies with drug therapy take 1 tablet by anastacia th in the morning, then take 1 tablet by mouth at bedtime metoprolol tartrate (LOPRESSOR) 25 mg tablet Take 1 tablet (25 mg total) by mouth in the morning and 1 tablet (25 mg total) before bedtime. Active pioglitazone 15 mg oral tablet (6 sources) Peroxisome Proliferator Receptor alpha Agonist, Peroxisome Proliferator Receptor gamma Agonist, Thiazolidinedione Start: 01-15-2024 take 1 tablet by mouth in the morning pioglitazone (ACTOS) 15 mg tablet Take 1 tablet (15 mg total) by mouth in the morning. 01/15/2024 Active rosuvastatin calcium 20 mg oral tablet (9 sources) HMG-CoA Reductase Inhibitor Start: 03-12-2025 take 1 tablet by mouth once daily Rosuvastatin (Crestor) 20 mg tablet Active 20 MG PO Daily 90 90 March 12, 2025 12:00am Complies with drug therapy Start: 01-12-2024 End: 03-12-2025 take 1 tablet by mouth in the morning rosuvastatin (CRESTOR) 5 mg tablet Take 1 tablet (5 mg total) by mouth in the morning. 01/12/2024 Active varenicline 0.5 mg oral tablet (6 sources) Partial Cholinergic Nicotinic Agonist take 1 tablet by mouth once in the morning varenicline (CHANTIX STARTING MONTH BOX) 0.5 mg (11)- 1 mg (42) tablet Take 0.5 mg by mouth in the morning and 0.5 mg before bedtime. Active Problems Active Problems Problem Classification Problem Date Documented Date Episodic/Chronic Anxiety disorders (6 sources) Anxiety; Translations: [Anxiety disorder, unspecified] Onset: 10-10-2010 02-01-2024 Chronic Coronary atherosclerosis and other heart disease (20 sources) Atherosclerotic heart disease of tetlin coronary artery without angina pectoris; Translations: [Coronary arteriosclerosis] Onset: 10-11-2021 02-01-2024 Chronic Diabetes mellitus with complications (3 sources) Type 2 diabetes mellitus with hyperosmolarity without nonketotic hyperglycemic-hyperos molar coma (NKHHC); Translations: [Type II diabetes mellitus uncontrolled] Onset: 10-11-2021 03-12-2025 Chronic Disorders of lipid metabolism (7 sources) Hyperlipidemia, unspecified; Translations: [Pure hypercholesterolemia, unspecified] Onset: 10-08-2021 Chronic Essential hypertension (1 source) Essential (primary) hypertension; Translations: [ESSENTIAL PRIMARY HYPERTENSION] Onset: 10-11-2021 Chronic Other connective tissue disease (4 sources) Impingement syndrome of right shoulder; Translations: [IMPINGEMENT SYNDROME RIGHT SHOULDER] Onset: 01-18-2022 Episodic Peripheral and visceral atherosclerosis (12 sources) Intermittent claudication; Translations: [Peripheral vascular disease, unspecified] Onset: 02-01-2024 02-01-2024 Chronic Spondylosis; intervertebral disc disorders; other back problems (13 sources) Spinal stenosis of lumbar region; Translations: [Spinal stenosis, lumbar region with neurogenic claudication] Onset: 02-27-2025 02-27-2025 Episodic Sprains and strains (1 source) Superior glenoid labrum lesion of right shoulder, initial encounter; Translations: [SUP GLND LABRUM LES RT SHLDR INIT] Onset: 01-20-2022 Episodic Substance-related disorders (18 sources) Tobacco dependence syndrome; Translations: [Nicotine dependence, unspecified, uncomplicated] Onset: 02-01-2024 02-01-2024 Chronic Unclassified (4 sources) I25.2 - Old myocardial infarction Unclassified (1 source) 1 year follow up for limb ischemia with Vas art duplex lwr Onset: 02-27-2025 Past or Other Problems Problem Classification Problem Date Documented Da te Episodic/Chronic Allergic reactions (12 sources) Inflammatory dermatosis; Translations: [Dermatitis, unspecified] Onset: 11-01-2010 02-01-2024 Episodic Coronary atherosclerosis and other heart disease (1 source) Coronary angioplasty status; Translations: [CORONARY ANGIOPLASTY STATUS] Onset: 10-11-2021 Episodic Diabetes mellitus without complication (1 source) Other abnormal glucose; Translations: [OTHER ABNORMAL GLUCOSE] Onset: 10-11-2021 Episodic Nonspecific chest pain (6 sources) Chest pain; Translations: [Chest pain, unspecified] [...] Test Name Value Interpretation Reference Range Facility [facility] ECG *CARDIOLOGY ONLY*on 03-12-2025 [facility] ECG *CARDIOLOGY ONLY* [facility] [place] [address] Electrocardiograph Report Signed Patient: Lionel Landin MR#: [id number] : 1960 Acct:[id number] Age/Sex: 64 / M ADM Date: 03/12/25 Loc: EKGCARDIO Room: Type: [facility] Attending Dr: Jose J Burdick MD Ordering Provider: Jose J Burdick MD Date of Service: 03/12/25 ECG/[facility] ECG *CARDIOLOGY ONLY*: I25.10 - Atherosclerotic heart disease of tetlin coronary... Copies to: Test Reason : Blood Pressure : */* mmHG Vent. Rate : 72 BPM Atrial Rate : 72 BPM P-R Int : 160 ms QRS Dur : 104 ms QT Int : 402 ms P-R-T Axes : 76 78 68 degrees QTcB Int : 440 ms Normal sinus rhythm Normal ECG Confirmed by Chrissy Harding ([id number]) on 03/12/2025 1:53:39 PM Referred By: Electronically Signed By: Chrissy Harding Transcribed By: MUS Signed By Chrissy Harding MD 5 [id number] Normal [facility] X-ray reportOrdered By: Cirilo Chester on 03-11-2025 Study report [facility] [address] [address] XRay Report Signed Patient: Lionel Landin MR#: [id number] : 1960 Acct:[id number] Age/Sex: 64 / M ADM Date: Loc: XD Room: Type: [facility] Attending Dr: Del Lee MD Copies to: Del Lee MD~ Ordering Provider: Del Lee MD Date of Service: 03/11/25 XR/XR lumbar spine 6V w bending: M54.16 - Radiculopathy, lumbar region XR lumbar spine 6V w bending 03/11/2025 12:04 PM SIGNS AND SYMPTOMS: Low back pain radiating into lower extremities with numbness PROTOCOLS: Frontal, lateral, and flexion-extension views of the lumbar spine COMPARISON: 12/27/2024 FINDINGS: There is a dextro convex curvature of the lumbar spine. No pathologic movement on flexion or extension. There is no fracture or destructive lesion. There is mild disc height loss at L4-5. The sacrum and sacroiliac joints are normal. Atherosclerotic changes are noted in the abdominal aorta. XR/XR lumbar spine 6V w bending IMPRESSION: No fracture, subluxation, or pathologic movement. There is a slight dextro convex curvature. Degenerative changes are noted, greatest at L4-5. Impression dictated by: Cirilo Chester M.D. 03/11/2025 5:11 PM Dictation Location: [facility]- Transcribed By: [facility] 03/11/251710 Dictated By: Cirilo Chester II, MD 03/11/251708 Signed By: 03/11/251710 [facility] Work Phone: XR lumbar spine 6V w bending on 03-11-2025 XR lumbar spine 6V w bending [facility] [address] [address] XRay Report Signed Patient: Lionel Landin MR#: [id number] : 1960 Acct:[id number] Age/Sex: 64 / M ADM Date: 03/11/25 Loc: XD Room: Type: [facility] Attending Dr: Del Lee MD Copies to: Del Lee MD Ordering Provider: Del Lee MD Date of Service: 03/11/25 XR/XR lumbar spine 6V w bending: M54.16 - Radiculopathy, lumbar region XR lumbar spine 6V w bending 03/11/2025 12:04 PM SIGNS AND SYMPTOMS: Low back pain radiating into lower extremities with numbness PROTOCOLS: Frontal, lateral, and flexion-extension views of the lumbar spine COMPARISON: 12/27/2024 FINDINGS: There is a dextro convex curvature of the lumbar spine. No pathologic movement on flexion or extension. There is no fracture or destructive lesion. There is mild disc height loss at L4-5. The sacrum and sacroiliac joints are normal. Atherosclerotic changes are noted in the abdominal aorta. XR/XR lumbar spine 6V w bending IMPRESSION: No fracture, subluxation, or pathologic movement. There is a slight dextro convex curvature. Degenerative changes are noted, greatest at L4-5. Impression dictated by: Cirilo Chester M.D. 03/11/2025 5:11 PM Dictation Location: [place] [address] Transcribed By: [facility] 03/11/25 1711 Dictated By: Cirilo Chester II, MD 03/11/25 1709 Signed By: 03/11/25 1711 Normal [facility] MRI SHOULDER RT WO CONon MRI SHOULDER [...] by: KASSIE MANNING Date: 2022-01-18 18:25 Normal [facility] XR ARTHRO SHLD RTon 01-19-20 22 [...] KASSIE MANNING Date: 2022-01-18 15:04 Normal [facility] XR FOREIGN BODY EYEon 2021 XR FOREIGN [...] KASSIE MANNING Date: 2022-01-18 13:55 Normal [facility] XR CSPINE MIN 4 VIEWSon 12-13 XR [...] LESLIE MCGOVERN Date: 2021-12-31 16:24 Normal [facility] CBC AUTO DIFFon 10-08-2021 BASO # 0.0 103/ul Normal 0.0-0.1 [facility] Comment on above: Performed By: #### C BC #### [facility] [address] [place] [address] Dr. Jamia Chin Basophils/100 WBC (Bld) 0.4 % Normal 0.2-2.0 [facility] Comment on above: Performed By: #### C BC #### [facility] [address] [place] [address] Dr. Jamia Chin EO # 0.2 103/ul Normal 0.0-0.7 [facility] Comment on above: Performed By: #### C BC #### [facility] [address] [place] [address] Dr. Jamia Chin Eosinophils/100 WBC (Bld) 2.1 % Normal 0.9-7.0 [facility] Comment on above: Performed By: #### C BC #### [facility] [address] [place] [address] Dr. Jamia hCin Erythrocyte distribution width (RBC) [Ratio] 13.2 % Normal 11.0-15.0 [facility] Comment on above: Performed By: #### C BC #### [facility] [address] [place] [address] Dr. Jamia Chin Hematocrit (Bld) [Volume fraction] 48.3 % Normal 42.0-54.0 [facility] Comment on above: Performed By: #### C BC #### [facility] [address] [place] [address] Dr. Jamia Chin Hemoglobin (Bld) [Mass/Vol] 16.9 g/dL Normal 14.0-18.0 [facility] Comment on above: Performed By: #### C BC #### [facility] [address] [place] [address] Dr. Jamia Chin IG # 0.03 10e3/ul Normal 0.00-0.03 [facility] Comment on above: Performed By: #### C BC #### [facility] [address] [place] [address] Dr. Jamia Chin IG % 0.3 % Normal 0.0-0.5 [facility] Comment on above: Performed By: #### C BC #### [facility] [address] [place] [address] Dr. Jamia Chin LYMPH # 2.0 103/ul Normal 1.2-3.8 [facility] Comment on above: Performed By: #### C BC #### [facility] [address] [place] [address] Dr. Jamia Chin Lymphocytes/100 WBC (Bld) 22.5 % Normal 20.5-60.0 [facility] Comment on above: Performed By: #### C BC #### [facility] [address] [place] [address] Dr. Jamia Chin MANUAL DIFF REQ NO Normal [facility] Comment on above: Performed By: #### C BC #### [facility] [address] [place] [address] Dr. Jamia Chin MCH (RBC) [Entitic mass] 30.7 pg Normal 25.9-34.0 [facility] Comment on above: Performed By: #### C BC #### [facility] [address] [place] [address] Dr. Jamia Chin MCHC (RBC) [Mass/Vol] 35.0 g/dL Normal 29.9-35.2 [facility] Comment on above: Performed By: #### C BC #### [facility] [address] [place] [address] Dr. Jamia Chin MCV (RBC) [Entitic vol] 87.7 fL Normal 80.0-94.0 [facility] Comment on above: Performed By: #### C BC #### [facility] [address] [place] [address] Dr. Jamia Chin MONO # 0.6 103/ul Normal 0.3-0.8 [facility] Comment on above: Performed By: #### C BC #### [facility] [address] [place] [address] Dr. Jamia Chin Monocytes/100 WBC (Bld) 6.7 % Normal 1.7-12.0 [facility] Comment on above: Performed By: #### C BC #### [facility] [address] [place] [address] Dr. Jamia Chin NEUT # 6.2 103/ul Normal 1.4-6.5 [facility] Comment on above: Performed By: #### C BC #### [facility] [address] [place] [address] Dr. Jamia Chin Neutrophils/100 WBC (Bld) 68.0 % Normal 43.0-75.0 [facility] Comment on above: Performed By: #### C BC #### [facility] [address] [place] [address] Dr. Jamia Chin Platelet mean volume (Bld) [Entitic vol] 9.0 fL Critically low 9.5-13.5 [facility] Comment on above: Performed By: #### C BC #### [facility] [address] [place] [address] Dr. Jamia Chin PLT 209 103/ul Normal 150-450 [facility] Comment on above: Performed By: #### C BC #### [facility] [address] [address] [address] Jamia Chin RBC 5.51 106/ul Normal 4.70-6.10 [facility] Comment on above: Performed By: #### C BC #### [facility] [address] [place] [address] Dr. Jamia Chin WBC 9.1 103/ul Normal 4.0-11.0 [facility] Comment on above: Performed By: #### C BC #### [facility] [address] [place] [address] Dr. Jamia Chin GLYCOHEMOGLOBIN A1Con 2021 ADA RECOMMENDATION ADA THERAPEUTIC TARG ET 6.0 - 7.0 ACTION SUGGESTED > 7.0 Normal [facility] Comment on above: Performed By: #### A 1C #### [facility] [address] [place] [address] Dr. Jamia Chin Glucose [Mass/Vol] 226 mg/dL Normal [facility] Comment on above: Performed By: #### A 1C #### [facility] [address] [place] [address] Dr. Jamia Chin HbA1c (Bld) [Mass fraction] 9.5 % Critically high <=6.0 [facility] Comment on above: Performed By: #### A 1C #### [facility] [address] [place] [address] Dr. Jamia Chin LIPID PROFILEon 10-08-2021 CHOL-HDL RATIO NORM SEE BELOW Normal [facility] Comment on above: Result Comment: 3.3 - 4.4 LOW RISK 4.4 - 7.1 AVERAGE RISK 7.1 - 11.0 MODERATE RISK >11.0 HIGH RISK Performed By: #### L IPID, CMP #### [facility] [address] [address] [address] Jamia Chin Cholesterol [Mass/Vol] 167 mg/dL Normal <=200 [facility] Comment on above: Performed By: #### L IPID, CMP #### [facility] [address] [address] [address] Jamia Chin Cholesterol in HDL [Mass/Vol] 31 mg/dL Normal [facility] Comment on above: Performed By: #### L IPID, CMP #### [facility] [address] [address] [address] Jamia Chin Cholesterol in LDL [Mass/Vol] 93.6 mg/dL Normal [facility] Comment on above: Performed By: #### L IPID, CMP #### [facility] [address] [address] [address] Jamia Chin Cholesterol.total/Ch olesterol in HDL [Mass ratio] 5.4 {ratio} Normal [facility] Comment on above: Performed By: #### L IPID, CMP #### [facility] [address] [address] [address] Jamia Chin HDL NORMAL > or = 60 mg/dl - LO W CARDIOVASCULAR RISK <40 mg/dl - HIGH CARDIOVASCULAR RISK Normal [facility] Comment on above: Performed By: #### L IPID, CMP #### [facility] [address] [address] [address] Jamia Chin LDL CALC NORMAL SEE BELOW Normal [facility] Comment on above: Result Comment: <100 mg/dl OPTIMAL 100 - 129 mg/dl NEAR OR ABOVE OPTIMAL 130 - 159 mg/dl BORDERLINE HIGH 160 - 189 mg/dl HIGH >190 mg/dl VERY HIGH Performed By: #### L IPID, CMP #### [facility] [address] [address] [address] Jamia Chin Triglyceride [Mass/Vol] 212 mg/dL Critically high <=150 [facility] Comment on above: Performed By: #### L IPID, CMP #### [facility] [address] [address] [address] Jamia Chin VLDL CALC 42.4 mg/dL Normal [facility] Comment on above: Performed By: #### L IPID, CMP #### [facility] [address] [place] [address] Dr. Jamia Chin PROF 14(COMP METB)on 022 Albumin [Mass/Vol] 4.3 g/dL Normal 3.5-5.0 [facility] Comment on above: Performed By: #### L IPID, CMP #### [facility] [address] [place] [address] Dr. Jamia Chin Albumin/Globulin [Mass ratio] 1.3 {ratio} Normal [facility] Comment on above: Performed By: #### L IPID, CMP #### [facility] [address] [place] [address] Dr. Jamia Chin ALP [Catalytic activity/Vol] 155 U/L Critically high 38-126 [facility] Comment on above: Performed By: #### L IPID, CMP #### [facility] [address] [place] [address] Dr. Jamia Chin ALT [Catalytic activity/Vol] 76 U/L Critically high 21-72 [facility] Comment on above: Performed By: #### L IPID, CMP #### [facility] [address] [place] [address] Dr. Jamia Chin Anion gap [Moles/Vol] 12.2 mmol/L Normal [facility] Comment on above: Performed By: #### L IPID, CMP #### [facility] [address] [place] [address] Dr. Jamia Chin AST [Catalytic activity/Vol] 16 U/L Critically low 17-59 [facility] Comment on above: Performed By: #### L IPID, CMP #### [facility] [address] [place] [address] Dr. Jamia Chin Bilirubin [Mass/Vol] 0.6 mg/dL Normal 0.2-1.3 [facility] Comment on above: Performed By: #### L IPID, CMP #### [facility] [address] [place] [address] Dr. Jamia Chin Calcium [Mass/Vol] 9.2 mg/dL Normal 8.4-10.2 [facility] Comment on above: Performed By: #### L IPID, CMP #### [facility] [address] [place] [address] Dr. Jamia Chin Chloride [Moles/Vol] 103 mmol/L Normal 98-107 [facility] Comment on above: Performed By: #### L IPID, CMP #### [facility] [address] [place] [address] Dr. Jamia Chin CO2 [Moles/Vol] 27.1 mmol/L Normal 22.0-30.0 [facility] Comment on above: Performed By: #### L IPID, CMP #### [facility] [address] [place] [address] Dr. Jamia Chin Creatinine [Mass/Vol] 0.91 mg/dL Normal 0.66-1.25 [facility] Comment on above: Performed By: #### L IPID, CMP #### [facility] [address] [place] [address] Dr. Jamia Chin EGFR-AF TUVALUAN >60 Normal >=60 [facility] Comment on above: Performed By: #### L IPID, CMP #### [facility] [address] [place] [address] Dr. Jamia Chin EGFR-NON AF TUVALUAN >60 Normal >=60 [facility] Comment on above: Performed By: #### L IPID, CMP #### [facility] [address] [place] [address] Dr. Jamia Chin Globulin (S) [Mass/Vol] 3.3 g/dL Normal [facility] Comment on above: Performed By: #### L IPID, CMP #### [facility] [address] [place] [address] Dr. Jamia Chin Glucose [Mass/Vol] 343 mg/dL Critically high 74-106 [facility] Comment on above: Performed By: #### L IPID, CMP #### [facility] [address] [place] [address] Dr. Jamia Chin Potassium [Moles/Vol] 4.3 mmol/L Normal 3.4-5.0 [facility] Comment on above: Performed By: #### L IPID, CMP #### [facility] [address] [address] [address] Jamia Chin Protein [Mass/Vol] 7.6 g/dL Normal 6.1-8.2 [facility] Comment on above: Performed By: #### L IPID, CMP #### [facility] [address] [place] [address] Dr. Jamai Chin Sodium [Moles/Vol] 138 mmol/L Normal 137-145 [facility] Comment on above: Performed By: #### L IPID, CMP #### [facility] [address] [place] [address] Dr. Jamia Chin Urea nitrogen [Mass/Vol] 19.0 mg/dL Normal 9.0-20.0 [facility] Comment on above: Performed By: #### L IPID, CMP #### [facility] [address] [place] [address] Dr. Jamia Chin Urea nitrogen/Creatinine [Mass ratio] 20.9 mg/mg Normal [facility] Comment on above: Performed By: #### L IPID, CMP #### [facility] [address] [place] [address] Dr. Jamia Chin Vital Signs Date Time Vital Sign Value Performing Clinician Victorina green 03-20-2025 09:33-0400 Body height 167.6 cm Lynn Finnegan MD Work Phone: [facility] 03-20-2025 09:33-0400 Diastolic blood pressure 71 mm[Hg] Lynn Finnegan MD Work Phone: [facility] 03-20-2025 09:33-0400 Heart rate 68 /min Lynn Finnegan MD Work Phone: [facility] 03-20-2025 09:33-0400 Systolic blood pressure 164 mm[Hg] Lynn Finnegan MD Work Phone: [facility] 03-12-2025 09:12-0400 Body height 167.64 cm Myrna Multani MD Work Phone: [facility] 03-12-2025 09:12-0400 Body mass index (BMI) [Ratio] 22.6 kg/m2 Myrna Multani MD Work Phone: [facility] 03-12-2025 09:12-0400 Body weight 63.5 kg Myrna Multani MD Work Phone: [facility] 03-12-2025 09:12-0400 Diastolic blood pressure 78 mm[Hg] Myrna Multani MD Work Phone: [facility] 03-12-2025 09:12-0400 Heart rate 71 /min Myrna Multani MD Work Phone: [facility] 03-12-2025 09:12-0400 Respiratory rate 18 /min Myrna Multani MD Work Phone: [facility] 03-12-2025 09:12-0400 SaO2% (BldA) [Mass fraction] 98 % Myrna Multani MD Work Phone: [facility] 03-12-2025 09:12-0400 Systolic blood pressure 140 mm[Hg] Myrna Multani MD Work Phone: [facility] 03-11-2025 10:43-0400 Body height 167.64 cm Myrna Multani MD Work Phone: [facility] 03-11-2025 10:43-0400 Body mass index (BMI) [Ratio] 22.6 kg/m2 Myrna Multani MD Work Phone: [facility] 03-11-2025 10:43-0400 Body weight 63.59 kg Myrna Multani MD Work Phone: [facility] 02-27-2025 09:24-0400 Body mass index (BMI) [Ratio] 22.6 kg/m2 Lynn Finnegan MD Work Phone: [facility] 02-27-2025 09:24-0400 Body weight 63.5 kg Lynn Finnegan MD Work Phone: [facility] 02-27-2025 09:24-0400 Diastolic blood pressure 78 mm[Hg] Lynn Finnegan MD Work Phone: [facility] 02-27-2025 09:24-0400 Heart rate 75 /min Lynn Finnegan MD Work Phone: [facility] 02-27-2025 09:24-0400 Systolic blood pressure 160 mm[Hg] Lynn Finnegan MD Work Phone: [facility] 02-01-2024 09:24-0400 Diastolic blood pressure 78 mm[Hg] Lynn Finnegan MD Work Phone: [facility] 02-01-2024 09:24-0400 Systolic blood pressure 140 mm[Hg] Lynn Finnegan MD Work Phone: [facility] 02-01-2024 09:20-0400 Body height 167.6 cm Lynn Finnegan MD Work Phone: [facility] 02-01-2024 09:20-0400 Body mass index (BMI) [Ratio] 23.92 kg/m2 Lynn Finnegan MD Work Phone: [facility] 02-01-2024 09:20-0400 Body weight 67.22 kg Lynn Finnegan MD Work Phone: [facility] 02-01-2024 09:20-0400 Heart rate 70 /min Lynn Finnegan MD Work Phone: [facility] 02-01-2024 09:20-0400 SaO2% (BldA) [Mass fraction] 98 % Lynn Finnegan MD Work Phone: [facility] Encounters Encounter Date Encounter Type Care Provider Facility Start: 03-24-2025 End: 03-24-2025 Telephone encounter [facility] Start: 03-20-2025 End: 03-20-2025 Office outpatient visit 25 minutes Lynn Finnegan MD Work Phone: [facility] Comment on above: Cigarette smoker (Pr imary Dx); Severe claudication Start: 03-20-2025 End: 03-20-2025 ambulatory [facility] Start: 03-12-2025 End: 03-12-2025 ambulatory Myrna Multani MD Work Phone: [facility] Work Phone: Start: 03-12-2025 End: 03-12-2025 Patient encounter procedure Jose J Burdick MD -[facility] Work Phone: Start: 03-11-2025 End: 03-11-2025 Patient encounter procedure Del Lee MD -[facility] Work Phone: Start: 03-11-2025 End: 03-11-2025 ambulatory Myrna Multani MD Work Phone: [facility] Work Phone: Start: 03-11-2025 End: 03-11-2025 ambulatory Myrna Multani MD Work Phone: [facility] Work Phone: Start: 03-11-2025 End: 03-11-2025 Patient encounter procedure Del Lee MD -[facility] Neuro[facility] Work Phone: Start: 03-07-2025 End: 03-07-2025 ambulatory [facility] Start: 02-27-2025 End: 02-27-2025 Office outpatient visit 25 minutes Lynn Finnegan MD Work Phone: [facility] Comment on above: Cigarette smoker (Pr imary Dx); Severe claudication; Lumbar stenosis with neurogenic claudication Start: 02-27-2025 End: 02-27-2025 ambulatory [facility] Start: 02-13-2025 ambulatory [facility] Start: 02-01-2024 End: 02-01-2024 [facility] Comment on above: Ischemia of both low er extremities (Primary Dx) Start: 02-01-2024 End: 02-01-2024 Office outpatient new 45 minutes Lynn Finnegan MD Work Phone: [facility] Comment on above: Ischemia of both low er extremities (Primary Dx); Cigarette smoker; Claudication ([facility]) Start: 01-18-2022 End: 01-18-[address] MYRNA MULTANI Facility:[facility] Start: 12-31-2021 End: 01-01-[address] MYRNA MULTANI Facility:[facility] Start: 10-08-2021 End: 10-09-[address] MYRNA MULTANI Facility:[facility] Procedures Date Procedure Procedure Detail Performing Clinician Start: 03-11-2025 X-ray of lumbar spin e, six views including bending views Myrna Multani MD Work Phone: Start: 10-08-[address] WILLIAM MULTANI Comment on above: Performed By: #### P [facility] #### [facility] [address] [place] [address] Dr. Jamia Chin History of placement of stent for coronary artery disease History of heart artery stent Myrna Multani MD Work Phone: Comment on above: patient unsure of an atomy, 6-8 stents? per patient report History of placement of stent for coronary artery disease History of heart artery stent Jose J Burdick MD Plan of Treatment Date Care Activity Detail Author Start: 11-24-2034 DTaP,Tdap and Td Vac cines (2 - Td or Tdap) DTaP,Tdap and Td Vaccines (2 - Td or Tdap) [facility] Start: 02-27-2026 Adult BMI Screening Adult BMI Screen ing [facility] Start: 02-27-2026 Tobacco Screening Tobacco Screening [facility] Start: 09-18-2025 End: 09-18-2025 Patient encounter procedure 09/18/2025 8:40 AM EST Office Visit [facility] [place] [address] Lynn Finnegan MD [address], [address] [address] [facility] Start: 04-14-2025 Influenza vaccination Influenza Vacc ine [facility] Start: 03-20-2025 End: 03-20-2025 Patient encounter procedure 03/20/2025 9:40 AM EDT Office Visit [facility] [place] [address] Lynn iFnnegan MD [address], [address] [address] [facility] Start: 03-11-2025 Patient referral [facility] Work Phone: Start: 03-07-2025 End: 03-07-2025 Patient encounter procedure 03/07/2025 1:00 PM EDT Appointment [facility] [address] [place] [id number] Lynn Finnegan MD [address], [address] [address] [facility] Start: 02-27-2025 End: 08-30-2026 US.doppler Extremity arteries - bilateral for physiologic artery study Vas art doppler lwr bilat mult lev/PVR Vascular Ultrasound Routine Cigarette smoker Severe claudication ([facility]) Expected: 02/27/2025, Expires: 08/30/2026 [facility] Work Phone: Comment on above: Expected: 02/27/2025 , Expires: 08/30/2026 Start: 02-13-2025 End: 02-13-2025 Patient encounter procedure 02/13/2025 8:30 AM EDT Office Visit [facility] [address] [place] [phone] Lynn Finnegan MD [address], [address] [address] [facility] Start: 01-31-2025 Adult BMI Screening Adult BMI Screen ing [facility] Start: 01-31-2025 Tobacco Screening Tobacco Screening [facility] Start: 01-12-2025 End: 02-11-2025 US.doppler Extremity arteries - bilateral for physiologic artery study Vas art doppler lwr bilat mult lev/PVR Vascular Ultrasound Routine Ischemia of both lower extremities Expected: 01/12/2025, Expires: 02/11/2025 [facility] Work Phone: Comment on above: Expected: 01/12/2025 , Expires: 02/11/2025 Start: 04-14-2024 Influenza vaccination Influenza Vacc ine [facility] Start: 2012 Administration of varicella zoster vaccine Zoster (Shingles) Vaccine (1 of 2) [facility] Start: 1981 DTaP,Tdap and Td Vac cines (1 - Tdap) DTaP,Tdap and Td Vaccines (1 - Tdap) [facility] Start: 1974 Depression Screening Depression Scre ening [facility] Start: 1962 Tobacco Counseling Tobacco Counselin g [facility] Patient referral [facility] Work Phone: [facility] Transthoracic [facility] XR Lumbar spine Views [facility] Payers Date Payer Category Payer Self-pay 2019 Medicaid [id number] 2015 Medicare MEDICARE [id number] 1962 Unknown [id number] 1962 Unknown [id number] 1962 Unknown [id number] 1962 Unknown [id number] 1962 Unknown [id number] 1962 Unknown [id number] 1962 Unknown [id number] 1959 Medicaid [id number] 1957 Medicare [id number] Self-pay Self Pay [id number] Unknown [facility] [id number] Unknown [id number] Unknown [id number] Social History Date Type Detail Facility Start: 08-14-1971 End: 03-12-2025 Tobacco smoking status TNIS Smokes tobacco daily [facility] Start: 08-14-1971 History of tobacco use Cigarette Smo ker [facility] Start: 01-21-2019 End: 02-01-2024 Cigarettes smoked current (pack per day) - Reported 0.5 [facility] Start: 02-01-2024 Tobacco use and exposure User of smokeless tobacco [facility] Start: 02-01-2024 End: 02-27-2025 Alcoholic beverage intake Defer [facility] Start: 01-21-2019 End: 02-01-2024 Tobacco use panel [facility] Childcare Unknown [facility] Start: 1960 Sex assigned at Not on file P [facility] Start: 03-17-2015 Sex Male (finding) [facility] Start: 1960 Sex Assigned At Male F [facility] Clinical Notes 12-31-2021 to 03-24-2025 Telephone Encounter - Conchita Easley - 03/24/2025 10:05 AM EDTTelephone Encounter - Julieta Jj LPN - 03/24/2025 10:05 AM EDTTelephone Encounter - Conchita Easley - 03/24/2025 10:05 AM EDT Note Date & Type Note Facility 03-24-2025 Miscellaneous Notes Formattin g of this note might be different from the original. Pt calling to relay that pharmacy was concerned because Dr. Finnegan prescribed Pletal on 03/20 and just wanted to make sure that he was aware that pt is already on Plavix 75 mg. Pt has not begun taking Pletal until he has the okay from our office. Please advise [phone] Called pt to confirm he is to continue taking pletal and plavix. Patient will call if he has any questions or concerns and ask for the triage nurse. documented in this encounter [facility] 03-24-2025 Telephone encount er Note Pt calling to relay that pharmacy was concerned because Dr. Finnegan prescribed Pletal on 8 and just wanted to make sure that he was aware that pt is already on Plavix 75 mg. Pt has not begun taking Pletal until he has the okay from our office. Please advise [phone] [facility] 03-24-2025 Telephone encount er Note Called pt to confirm he is to continue taking pletal and plavix. Patient will call if he has any questions or concerns and ask for the triage nurse. [facility] 03-20-2025 Evaluation + Plan note Associated Problem(s): Severe claudication Continue aspirin Plavix and statin. I added cilostazol. Recommended walking. Recommended smoking cessation. [facility] 03-20-2025 Miscellaneous Notes Associate d Problem(s): Severe claudication Continue aspirin Plavix and statin. I added cilostazol. Recommended walking. Recommended smoking cessation. Associated Problem(s): Cigarette smoker Counseled on smoking cessation for 4 min Not willing to quit documented in this encounter [facility] 03-20-2025 Evaluation + Plan note Associated Problem(s): Cigarette smoker Counseled on smoking cessation for 4 min Not willing to quit [facility] 03-20-2025 History of Presen t illness Narrative Images from the original note were not included. To: No primary care provider on file. HPI: Lionel Landin is a 64 y.o. male with bilateral lower extremity claudication. There was combined component of neurogenic and vasculogenic claudication. He has PVR shows mild occlusive disease with a 0.8 PIO in the left in 0.7 in the right. His symptoms are mostly in the left. We discussed the diagnosis and treatment options. Counseled him on smoking cessation in length.. Review of Systems: Review of Systems Constitutional: Negative. HENT: Negative. Respiratory: Negative. Cardiovascular: Negative. Gastrointestinal: Negative. Endocrine: Negative. Genitourinary: Negative. Musculoskeletal: Negative. Skin: Negative. Neurological: Negative. Hematological: Negative. Medications: Current Outpatient Medications on File Prior to Visit Medication Sig Dispense Refill aspirin 325 mg tablet Take 1 tablet (325 mg total) by mouth every 6 (six) hours as needed. clopidogreL (PLAVIX) 75 mg tablet Take 1 tablet (75 mg total) by mouth in the morning. glimepiride (AMARYL) 4 mg tablet Take 1 tablet (4 mg total) by mouth every morning before breakfast. ibuprofen (AdviL) 200 mg tablet Take 1 tablet (200 mg total) by mouth every 6 (six) hours as needed. JARDIANCE 25 mg tablet tablet Take 1 tablet (25 mg total) by mouth in the morning. lisinopriL (PRINIVIL,ZESTRIL) 5 mg tablet Take 1 tablet (5 mg total) by mouth in the morning. metoprolol tartrate (LOPRESSOR) 25 mg tablet Take [...] Past Medical History: Diagnosis Date Diabetes mellitus ([facility]) Hypertension Myocardial infarction ([facility]) Past Surgical History: Past Surgical History: Procedure [...] packs/day: 0.50 Average packs/day: 0.5 packs/day for 53.6 years (26.8 ttl pk-yrs) Types: Cigarettes Start [...] the assessment and plan below. Vitals: BP 164/71 (BP Site: Right Arm, BP Postition: Sitting, BP CUFF SIZE: M (9-13 inches)) Pulse 68 Ht 167.6 cm (5' 6 ) BMI 22.60 kg/m Body mass index is [...] normal. Judgment: Judgment normal. Recent testing: PVR Assessment and Plan: Problem List Cigarette smoker - Primary Current Assessment & Plan Counseled on smoking cessation for 4 min Not willing to quit Severe claudication Current Assessment & Plan Continue aspirin Plavix and statin. I added cilostazol. Recommended walking. Recommended smoking cessation. Lionel was seen today for doppler completed 03/07/25. cigarette smoker, severe claudi. Diagnoses and all orders for this visit: Cigarette smoker Severe claudication Other orders - cilostazoL (PLETAL) 100 mg tablet; Take 0.5 tablets (50 mg total) by mouth in the morning and 0.5 tablets (50 mg total) before bedtime. Lynn Finnegan MD, SKYLER, RPVI, FSVS, FACS [facility] This note was created with the assistance of a speech recognition program. While intending to generate a timely document that accurately reflects the content of the visit, no guarantee can be provided that every grammatical or spelling mistake has been or will be identified or corrected. Thank you for your understanding. documented in this encounter [facility] 03-20-2025 Instructions Lynn Finnegan MD - 03/20/2025 9:40 AM EDT Are You Ready To Kick The Habit? Free Tobacco Cessation Resources [facility] Treatment Center Services [facility] Tobacco Treatment Centers provide all employees with free tobacco cessation services that include: Counseling to understand nicotine addiction Education about medications that can help you successfully quit Assistance with developing a plan to quit Call to set up an individual appointment or find out when group classes will be held: [facility]: [phone] [facility]: [phone] [facility]: [phone] [facility]: [phone] Quit Smoking Action Plan and Resources [facility] offers an eight-week, online smoking cessation plan to all [facility] employees, regardless of whether [employer] [place] is your medical insurance provider. Go to [email or web address] [email or web address]/[email or web address] lness and click the Health Risk Assessment and Resources link to get started. In the Yfqro8Xsufay menu, click Action Plans instead of Health Risk Assessment to access the Quit Smoking Action Plan. Additional smoking cessation resources are also available to all [facility] employees on the Lrrnh0Fdubev web page at [email or web address]/[email or web address] smith. [place] Tobacco Cessation Program If [employer] is your medical insurance provider, there are more free resources available to you, including: No copays or deductibles on local tobacco cessation counseling services to help you quit Prescription assistance for tobacco cessation medications to help you quit For details about the tobacco cessation program available to [employer] members, go to www.Animail.[place]on (Search: Tobacco Cessation Program). [place] Tobacco Quit Line 4-014-MSCX-NOW ( ) is a toll-free, telephonic service that helps [place] residents quit smoking and using tobacco. It is staffed by experts who tailor a quit plan for you and provide you with advice. [place] Tobacco Quit Line 6-646-AFUO-NOW ( ) is a toll-free, telephonic service that helps [place] residents quit smoking and using tobacco. It is staffed by experts who tailor a quit plan for you and provide you with advice. Two weeks of nicotine replacement therapy may be provided at no charge, if needed. Additional Resources These national organizations also offer free information and resources to help you quit tobacco: [place] [employer]--www.cancer.org/healthy /stayawayfromtobacco [place] [employer]--www.heart.org (Search: Quit Smoking) Centers for Disease Control and Prevention--www.cdc.gov/tobacco [place] [employer]--www.lungusa.org documented in this encounter [facility] 03-11-2025 Evaluation note Diagnosis Onset Date Resolution Displacement of lumbar intervertebral disc with radiculopathy acute March 11, 2025 10:35am [facility] Work Phone: 1(442) 902-191707-29-2025 Evaluation note* Diagnosis Onset Date Resolution Status Admit Date Displacement of lumbar intervertebral disc with radiculopathy acute March 11, 2025 10:35am Displacement of lumbar intervertebral disc with radiculopathy acute March 12, 2025 9:00am [facility] Work Phone: 1(592) 818-176807-29-2025 Evaluation note* Diagnosis Onset Date Resolution Status Admit Date Displacement of lumbar intervertebral disc with radiculopathy acute March 11, 2025 10:35am CAD (coronary artery disease) acute March 12, 2025 9:00am Displacement of lumbar intervertebral disc with radiculopathy acute March 12, 2025 9:00am History of heart artery stent acute March 12, 2025 9:00am History of non-ST elevation myocardial infarction (NSTEMI) acute J 2024 9:00am Mixed hyperlipidemia acute March 12, 2025 9:00am Uncontrolled type II diabete s mellitus acute March 12, 2025 9:00am [facility] Work Phone: 1(657) 636-143407-17-2025 Evaluation + Plan note* Assessment & Plan Note - Lynn Finnegan MD - 02/27/2025 10:30 PM EDTAssociated Problem(s): Lumbar stenosis with neurogenic claudication Follow up with neurospine [facility]07-17-2025 Miscellaneous Notes* Assessment & Plan Note - Lynn Finnegan MD - 02/27/2025 10:30 PM EDTAssociated Problem(s): Lumbar stenosis with neurogenic claudication Follow up with neurospine * Assessment & Plan Note - Lynn Finnegan MD - 02/27/2025 10:29 PM EDT Associated Problem(s): Cigarette smoker Counseled on smoking cessation for 4 min * Assessment & Plan Note - Lynn Finnegan MD - 02/27/2025 9:47 AM EDT Associated Problem(s): Severe claudication PVR as a start, walking and best medical therapy. ASA and statin. [facility] Evaluation + Plan note* Assessment & Plan Note - Lynn Finnegan MD - 02/27/2025 10:29 PM EDT Associated Problem(s): Cigarette smoker Counseled on smoking cessation for 4 min [facility]07-17-2025 Evaluation + Plan note* Assessment & Plan Note - Lynn Finnegan MD - 02/27/2025 9:47 AM EDTAssociated Problem(s): Severe claudication PVR as a start, walking and best medical therapy. ASA and statin. [facility]-17-2025 History of Present illness Narrative* Lynn Finnegan MD - 02/27/2025 9:30 AM [...] Past Medical History: Diagnosis Date Diabetes mellitus ([facility]) Hypertension Myocardial infarction ([facility]) Past Surgical History: Past Surgical History: Procedure [...] you for your understanding. [id number] Miscellaneous Notes* Telephone Encounter - Adele Piña CMA - 02/01/2024 9:58 AM EDT A user error has taken place: encounter opened in error, closed for administrative reasons. documented in this encounterOhio [facility] Hospital[facility] [id number] Telephone encounter Note* Telephone Encounter - Adele Piña CMA - 02/01/2024 9:58 AM EDT A user error has taken place: encounter opened in error, closed for administrative reasons. [facility] Evaluation + Plan note* Assessment & Plan Note - Lynn Finnegan MD - 02/01/2024 9:40 AM EDTAssociated Problem(s): Claudication ([facility]) Smoking cessation, ASA,Crestor, walking program PVR and follow up in a year [facility]06-20-2024 Evaluation + Plan note* Assessment & Plan Note - Lynn Finnegan MD - 02/01/2024 9:40 AM EDTAssociated Problem(s): Cigarette smoker Counselled for smoking cessation in length, at least 4 min. [facility]2024 Miscellaneous Notes* Assessment & Plan Note - Lynn Finnegan MD - 02/01/2024 9:40 AM EDTAssociated Problem(s): Claudication ([facility]) Smoking cessation, ASA,Crestor, walking program PVR and follow up in a year * Assessment & Plan Note - Lynn Finnegan MD - 02/01/2024 9:40 AM EDT Associated Problem(s): Cigarette smoker Counselled for smoking cessation in length, at least 4 min. documented in this encounterTr[facility] System06-20-2024 History of Present illness Narrative* Lynn Finnegan MD - 02/01/2024 9:20 AM EDT Images from the original note were not included. To: No primary care provider on file. HPI: Lionel Landin is a 63 y.o. male with Bilateral lower extremity peripheral arterial disease and claudication. His PVR and arterial duplex are consistent with below-knee occlusive disease. His PIO ismildly reduced. He is a heavy smoker and [...] CUFF SIZE: M (9-13 inches)) Pulse 70 Ht167.6 cm (5' 6 ) Wt 67.2 kg [...] in length, at least 4 min. Claudication ([facility]) Current Assessment & Plan Smoking cessation, ASA,Crestor, walking program PVR and follow up in a year Lionel was seen today for leg pain and cold feet. Diagnoses and all orders for this visit: Ischemia of both lower extremities - [facility] - [place], [place] Cigarette smoker Claudication ([facility]) Lynn Finnegan MD, SKYLER, RPVI, FSVS, FACS [facility] This note was created with the assistance of a speech recognition program. While intending to generate a timely document that accurately reflects the content of the visit, no guarantee can be provided that every grammatical or spelling mistake has been or will be identified or corrected. Thank you for your understanding. documented in this encounterTrinity Health System06-20-2024 Instructions* Patient Instructions* Lynn Finnegan MD - 02/01/2024 9:20 AM EDT Are You Ready To Kick The Habit? Free Tobacco Cessation Resources [facility] Tobacco [facility] Center Services [facility] Tobacco Treatment Centers provide all employees with free tobacco cessation services that include: Counseling to understand nicotine addiction Education about medications that can help you successfully quit Assistance with developing a plan to quit Call to set up an individual appointment or find out when group classes will be held: [facility]: [phone] [facility]: [phone] [facility]: [phone] [facility]: [phone] Quit Smoking Action Plan and Resources [facility] offers an eight-week, online smoking cessation plan to all [facility] employees, regardless of whether [employer] [place] is your medical insurance provider. Go to www.[employer].org/employeewellness and click the Health Risk Assessment and Resources link to get started. In the Ssugd9Zzhwls menu, click Action Plans instead of Health Risk Assessment to access the Quit Smoking Action Plan. Additional smoking cessation resources are also available to all [facility] employees on the Hyxrl0Hguyzn web page at www.Animail.[place]/quitsmoking. [place] Tobacco Cessation Program If [employer] is your medical insurance provider, there are more free resources available to you, including: No copays or deductibles on local tobacco cessation counseling services to help you quit Prescription assistance for tobacco cessation medications to help you quit For details about the tobacco cessation program available to [employer] members, go to www.Animail.[place] (Search: Tobacco Cessation Program). [place] Tobacco Quit Line 8-163-EBXN-NOW ( ) is a toll-free, telephonic service that helps [place] residents quit smoking and using tobacco. It is staffed by experts who tailor a quit plan for you and provide you with advice. [place] Tobacco Quit Line 6-424-GUTJ-NOW ( ) is a toll-free, telephonic service that helps [place] residents quit smoking and using tobacco. It is staffed by experts who tailor a quit plan for you and provide you with advice. Two weeks of nicotine replacement therapy may be provided at no charge, if needed. Additional Resources These national organizations also offer free information and resources to help you quit tobacco: [place] [employer]--www.cancer.org/healthy/stayawayfromtobacco [place] [employer]--www.heart.org (Search: Quit Smoking) Centers for Disease Control and Prevention--www.cdc.gov/tobacco [place] [employer]--www.lungusa.org documented in this encounterTrinity Health System05-20-2022 NotePROCEDURE: XR SHOULDER RT 2V or > HISTORY: Impingement syndrome [...] Electronically authenticated by: LESLIE MCGOVERN Date: 2021-12-31 16:19[facility] Diagnosis Ischemia of both lower extremities- Primary [facility]* Diagnosis Ischemia of both lower extremities- Primary Cigarette smoker Tobacco use disorder Claudication ([facility]-HCC) Unspecified peripheral vascular disease documented [facility] this encounter [facility]* Diagnosis Ischemia of both lower extremities- Primary Cigarette smoker Tobacco use disorder Claudication Unspecified peripheral vascular disease Cigarette smoker- Primary Tobacco use disorder Severe claudication Lumbar stenosis with neurogenic claudication documented in this encounter [facility] System[facility] noteNo assessment information available [facility] Work Phone: Evaluation note* Diagnosis Ischemia of both lower extremities- Primary Cigarette smoker Tobacco use disorder Claudication Unspecified peripheral vascular disease Cigarette smoker- Primary Tobacco use disorder Severe claudication Lumbar stenosis with neurogenic claudication Cigarette smoker- Primary Tobacco use disorder Severe claudication documented in this encounter [facility] instructionsAmb[facility] Orders* Referral to Cardiology Location: None Selected [facility] Work Phone: InstructionsNot on filedocumented in this encounter [facility] SystemInstructionsNot on filedocumented in this encounter [facility] SystemInstructionsNot on filedocumented in this encounter [facility] SystemInstructionsNot on filedocumented in this encounter [facility] Summary Purpose Family History Relationship Condition Age at Onset Recorded Date/T kurtis father Malignant neoplasm Unknown grandparent Malignant neoplasm Unknown Relationship Condition Age at Onset Recorded Date/T kurtis father Malignant neoplasm Unknown grandparent Malignant neoplasm Unknown brother Heart disease Unknown Advance Directives Advance Directive Response Recorded Date/ Time Advance Directives No July 17, 2019 1:57pm Reason for Referral Specialty Diagnoses / Procedures Referred By Contac t Referred To Contact Diagnoses Ischemia of both lower extremities Procedures Vas art doppler lwr bilat mult lev/PVR Lynn Finnegan MD [address], [address] [address] Referral ID Status Reason Start Date Expiration Date V isits Requested Visits Authorized [id number] Pending Review 02/01/2024 01/31/2025 1 1 Chief Complaint and Reason for Visit Chief Complaint Admit Date Spinal stenosis, lumbar region without n eurogenic March 11, 2025 10:35am Chief Complaint Admit Date Spinal stenosis, lumbar region without n eurogenic March 11, 2025 10:35am M54.16 March 11, 2025 11:4 0am Reason for Visit Admit Date Displacement of lumbar intervertebral di sc with radiculopathy March 11, 2025 10:35am Chief Complaint Admit Date Spinal stenosis, lumbar region without n eurogenic March 11, 2025 10:35am M54.16 March 11, 2025 11:[address] Lee March 12, 2 025 9:00am Reason for Visit Admit Date Displacement of lumbar intervertebral di sc with radiculopathy March 11, 2025 10:35am Displacement of lumbar intervertebral di sc with radiculopathy March 12, 2025 9:00am Chief Complaint Admit Date Spinal stenosis, lumbar region without n eurogenic March 11, 2025 10:35am M54.16 March 11, 2025 11:4 0am I25.10 March 12, 2025 8:[address] Lee March 12, 2 025 9:00am Reason for Visit Admit Date Displacement of lumbar intervertebral di sc with radiculopathy March 11, 2025 10:35am CAD (coronary artery disease) March 12, 2025 9:00am Displacement of lumbar intervertebral di sc with radiculopathy March 12, 2025 9:00am History of heart artery stent March 12, 2025 9:00am History of non-ST elevation myocardial i nfarction (NSTEMI) March 12, 2025 9:00am Mixed hyperlipidemia March 12, 2025 9:0 0am Uncontrolled type II diabetes mellitus J joshua 2024 9:00am Additional Source Comments (unrecognized sect ion and content) No Status Records FoundNo Status Records FoundNo Status Records FoundNo Status Records Found INFORMATION SOURCE (unrecogn ized section and content) DATE CREATED AUTHOR 01/20/2022 [facility] DATE CREATED AUTHOR 'S ORGANIZ ATION 03/08/2025 [facility] DATE CREATED AUTHOR AUTHOR'S ORGANIZ ATION 03/15/2025 [facility] DATE CREATED AUTHOR AUTHOR'S ORGANIZ ATION 03/22/2025 [facility] Reason for Visit (unrecogniz ed section and content) Reason Comments Leg Pain Right leg today is a 6 As the day goes on it gets worse Cold Feet Feet get cold and bu rn Specialty Diagnoses / Procedures Referred By Contac t Referred To Contact Vascular Surgery Diagnoses Ischemia of both lower extremities Myrna Multani MD [address] [place] [address] Lynn Finnegan MD [address], [address] [address] Referral ID Status Reason Start Date Expiration Date Visits Requested Visits Authorized [id number] Pending Review Specialty Services Required 01/30/2024 01/29/2025 1 1 Reason Comments 1 year follow up for limb ischemia with Vas art duplex lwr Reason Comments Doppler completed 03/07/25. Cigarette sm oker, Severe claudi Care Teams (unrecognized sec tion and content) Team Status: Active Member Role Status Shine Multani MD Primary Care Provider Active Team Status: Inactive Member Role Status Shine Lee MD Attending Provider Active Star t: March 11, 2025 End: March 11, 2025 Myrna Multani MD Primary Care Provider Active Start: March 11, 2025 End: March 11, 2025 Team Status: Inactive Member Role Status Shine Multani MD Primary Care Provider Active Start: March 11, 2025 End: March 11, 2025 Del Lee MD Attending Provider Active Star t: March 11, 2025 End: March 11, 2025 Team Status: Active Member Role Status Shine Multani MD Primary Care Provider Active Start: March 12, 2025 Jose J Burdick MD Attending Provider Activ e Start: March 12, 2025 Team Status: Inactive Member Role Status Shine Multani MD Primary Care Provider Active Start: March 12, 2025 End: March 12, 2025 Jose J Burdick MD Attending Provider Activ e Start: March 12, 2025 End: March 12, 2025 Goals (unrecognized section and content) Goals may be documented in a n alternate section FOR RECORDS PERTAINING TO PATIENTS WHO ARE [...] BE BASED ON THE PRIMARY CLINICAL RECORDS. [facility] [employer] [facility]. provides no warranty or guarantee of the accuracy or completeness of information in this document.
--- NOTE | 2025-03-31 09:08 | PC.NURSE ---
Nursing Note Cardiac Stress Test Reviewed: Medication, allergies and patient history reviewed. Stress Test: [x ] Patient tolerated stress test well. [ ] Patient unable to tolerate walking on treadmill. Switched to Lexiscan stress test. [x ] No chest pain noted per patient [ ] Chest pain that resolved prior to leaving stress lab. [x ] No dyspnea noted. [ ] Dyspnea that resolved prior to leaving stress lab. [x ] Patient left stress lab asymptomatic and hemodynamically stable. [ ] Patient taken to the Emergency Room due to non-resolving symptoms following stress test. [ ] Patient achieved target heart rate. [ ] Patient unable to achieve target heart rate. [ ] Aminophylline administered as reversal agent to Lexiscan (Regadenoson). [ ] Nitro administered. Nursing Comments:Pt had Lexiscan test done. No issues other then some SOB initially after Colleen was given but this resolved within 1 minute. Pt ambulated to cafeteria for breakfast prior to second set of images.
[2025-03-31] MEDS: REGADENOSON 0.4 MG/5 ML SYRINGE IV (09:10)
--- NOTE | 2025-03-31 12:43 | PM.STRESS ---
Stress Test Stress Test Allergies Allergy/AdvReac Type Severity Reaction Status Date / Time No Known Drug Allergies Allergy Verified 11/24/24 15:58 Requesting physician: Marshall Multani Procedure: This was a Lexiscan stress test with myocardial perfusion imaging performed at the [facility] on 03/31/2025. Intravenous line was secured. The patient was attached to electrocardiographic monitoring. Baseline vital signs and ECG were obtained. Lexiscan 0.4 mg was administered intravenously followed by administration of Cardiolite. The patient then went on to obtain myocardial perfusion imaging. Resting heart rate was 73 bpm and peak heart rate was 97 bpm. Resting blood pressure was 146/92 and peak blood pressure was 150/82. General Information: Reason for Stress Test: Preop testing. Cardiac History and Risk Factors: CA, stents. Resting 12 - Lead Electrocardiogram: Sinus rhythm, cannot rule out anterior infarct, age undetermined. Stress Test: Protocol: Pharmacologic stress with Lexiscan. Exercise Capacity: Not assessed. Blood Pressure Response: Resting hypertension. Rhythm: Sinus rhythm. ST - Response: No ischemic ST changes seen. Patient Response: Shortness of breath resolving within 1 minute following infusion of Lexiscan. Interpretation: 1. No evidence of ischemic ECG changes following infusion of Lexiscan. 2. Myocardial perfusion images will be reported separately.
== END 2025-03-31 08:02 | disposition home or self-care (01) ==
LOC: NM 08:01
PROVIDERS: PCP Family Medicine; Visit Provider Family Medicine
DX: Z01.818 Encounter for other preprocedural examination (principal); I25.10 Atherosclerotic heart disease of native coronary artery without angina pectoris; R07.89 Other chest pain
CPT/HCPCS: 78452; 93017; A9500; J2785